=== PATIENT | male | born 1950 | race African-American/Black ===

== ENCOUNTER 2016-09-12 10:16 | Inpatient (IN) | payer OTHER, BC ==
[2016-09-12] MEDS ORDERED: SODIUM CHLORIDE 1,000 ML IV ONE (10:32)
--- NOTE | 2016-09-12 10:35 | PDOC ---
History of Present Illness - General Stated Complaint: UNCONSCIOUS Time Seen by Provider: 09/12/16 10:26 History Source: Patient Exam Limitations: No Limitations - History of Present Illness Initial Comments: The patient is a 66 year old male with a significant past medical history of EtOH abuse, alcohol withdrawal, PE, left DVT, HTN, subdural hematoma who is arrived to the Emergency Department via EMS for alcohol intoxication. Pt was seen on 08/31 for alcohol intoxication, got discharged on 09/04. As per EMS, the patient was found to be unresponsive and tachycardic at home with BGM in [id number] . Pt states that his last alcoholic drink was on Friday. History is limited from the patient, but pt able to nod/shake his head appropriately to questions. He denies fever, chills, abdominal pain, nausea, vomiting, chest pain, SOB, headache, dizziness, LOC. PSH:right hip replacement SH:EtOH abuse Past History - Past Medical History Allergies/Adverse Reactions: Allergies Allergy/AdvReac Type Severity Reaction Status Date / Time No Known Allergies Allergy Verified 09/12/16 11:13 Home Medications: Ambulatory Orders Folic Acid - 1 mg PO DAILY #30 tablet 09/04/16 Thiamine HCl [Vitamin B1 -] 100 mg PO DAILY #30 tablet 09/04/16 Walker [Ultra-Light Rollator] 1 each MC ONCE #1 each 09/04/16 HTN: Yes Suicide Attempt (Hx): No - Surgical History Orthopedic Surgery: Yes (Total R. Hip replacement) - Immunization History Immunization Up to Date: Yes - Psycho/Social/Smoking Cessation Hx Anxiety: No Suicidal Ideation: No Smoking Status: No Smoking History: Never smoked Have you smoked in the past 12 months: No Number of Cigarettes Smoked Daily: 0 Hx Alcohol Use: Yes (1 pint a day) Drug/Substance Use Hx: No Substance Use Type: None Hx Substance Use Treatment: No Review of Systems - Review of Systems Comments:: limited due to cilincial condition *Physical Exam - Physical Exam Comments: 09/12/16 20:57 GENERAL: +tremulous, generally weak, opens eyes to verbal stimulus, nods to basic questions HEAD: Normocephalic, atraumatic. EYES: extraocular movements intact, sclera anicteric, conjunctiva clear, pupils 2mm and reactive to light ENT: Normal voice, dry mucous membranes. NECK: Normal range of motion, supple LUNGS: Breath sounds equal, clear to auscultation bilaterally. No wheezes, no rhonchi, no rales. HEART: tachycardic ABDOMEN: Soft, nontender, normoactive bowel sounds. No guarding, no rebound.No CVA tenderness EXTREMITIES:+Contusion right superior buttock no erythema or fluxious. BACK: No focal bony tenderness in cervical/thoracic/lumbar region, no ecchymosis or stepoffs. NEUROLOGICAL: No facial assymetry, Normal speech, moving all 4 extremities to verbal stimulus SKIN: Warm, Dry, normal turgor, Heart Score/ECG Review - ECG Impressions Comment:: 09/12/16 11:18 Twelve-lead EKG was performed and reviewed by me. There is normal sinus rhythm with a heart rate of 117 Q waves in inferior leads ED Treatment Course - LABORATORY CBC & Chemistry Diagram: 09/13/16 05:35 09/13/16 05:35 - RADIOLOGY Radiology Studies Ordered: Category Date Time Status HEAD CT WITHOUT CONTRAST [CT] Stat CT Scan 09/12/16 10:27 Ordered CHEST X-RAY PORTABLE* [RAD] Stat Radiology 09/12/16 10:28 Ordered Medical Decision Making - Medical Decision Making 09/12/16 10:39 66y M hx of etoh abuse with history of etoh withdrawal, EtOH abuse, PE, subdural hematoma, left DVT, and a total right hip presents with AMS, was found down in the pts home by EMS _ FS was 130s, slightly tachy, bp slightly hypertensive, pupils were approximately 2mm. on arrival the pt is somnolent but arounsabl eot verbal stimulus, answers basic questions, denies any pain, states that last drink was 2 days ago - pt has dry mm, contusion on his buttock, otherwise nonfocal exam. suspect possible dehydration/withdrawal will obtain CT head to r/o intracranial process will give pt dose diazepam as pt hyperdynamic will r/o sepsis will give fluids/bananabag will obtain ekg 09/12/16 12:17 Laboratory Tests 09/12/16 09/12/16 09/12/16 10:30 10:30 10:30 WBC 12.3 H D Hct 50.0 H D Plt Count 164 Neutrophils % 85.6 H Lymphocytes % 5.6 L D VBG pH POC VBG pCO2 POC VBG pO2 Sodium 151 H Potassium 4.5 Chloride 118 H D Carbon Dioxide 19 L D Anion Gap 14 BUN 36 H D Creatinine 1.6 H D Creat Clearance w eGFR 43.46 Random Glucose 124 H D Lactic Acid 2.122 H* Calcium 10.0 Magnesium 2.4 Total Bilirubin 1.2 H D AST 172 H D Creatine Kinase 4625 H D Troponin I < 0.02 Total Protein 8.4 H Albumin 4.1 Urine Protein Urine Ketones Urine Blood Benzodiazepines Screen 09/12/16 09/12/16 09/12/16 10:43 11:00 11:00 WBC Hct Plt Count Neutrophils % Lymphocytes % VBG pH 7.23 L* POC VBG pCO2 46.7 POC VBG pO2 41.9 H Sodium Potassium Chloride Carbon Dioxide Anion Gap BUN Creatinine Creat Clearance w eGFR Random Glucose Lactic Acid Calcium Magnesium Total Bilirubin AST Creatine Kinase Troponin I Total Protein Albumin Urine Protein 2+ H Urine Ketones 1+ H Urine Blood 3+ H Benzodiazepines Screen Positive 09/12/16 12:22 labs reviewed slight leukocyotisis - nonspecific - no signs of infection cr/bun elevated , ck elevated to 4000s --> suspect rhabdomyolysis, will alkalinize urine with d5w bicarb gtt at 100ml/hr Na at 151, suspect secondary to dehydration ct head shows no acute process lactic acid slightly elevated at 2.1 benzos + on UA (this was obtained prior to us giving her diazepam for supsected withdrawal) suspect the benzos on board may be the ause of his somnolence Pts HR trending lower, currently 102-105 bp at 146 sbp case d/w dr. Logan agreed with admission for further management Case discussed in detail with admitting physician including history, physical exam and ancillary studies. Admitting physician has assumed care for the patient, will follow all pending diagnostics and will complete the evaluation and treatment. CRITICAL CARE DOCUMENTATION: I spent ~35 minutes of Critical Care time, excluding separately billable procedures, involving high complexity decision making to assess, manipulate and support vital system function(s) to treat single or multiple vital organ system failure and/or to prevent further life threatening deterioration of the patient' s condition. *DC/Admit/Observation/Transfer Diagnosis at time of Disposition: Alcohol withdrawal Qualifiers: Complication of substance-induced condition: uncomplicated Qualified Code(s): F10.230 - Alcohol dependence with withdrawal, uncomplicated Altered mental status Qualifiers: Altered mental status type: unspecified Qualified Code(s): R41.82 - Altered mental status, unspecified Rhabdomyolysis Qualifiers: Rhabdomyolysis type: traumatic Encounter type: initial encounter Qualified Code (s): T79.6XXA - Traumatic ischemia of muscle, initial encounter Acute renal failure Qualifiers: Acute renal failure type: unspecified Qualified Code(s): N17.9 - Acute kidney failure, unspecified - Discharge Dispostion Admit: Yes
[2016-09-12] MEDS ORDERED: diazePAM CARPU-JECT 10 MG/2 ML DISP.SYRIN IVPUSH ONE (10:38)
[2016-09-12] MEDS ORDERED: diazePAM CARPU-JECT 10 MG/2 ML DISP.SYRIN ONE (10:40)
[2016-09-12 10:50] LABS: BASOPHIL 0.4 % (0-2.0); EOSINOPHIL 0.1 % (0-4.5); MCH 29.3 pg (25.7-33.7); MCHC 31.5 g/dl (32.0-35.9); MEAN CELL VOLUME 93.2 fl (80-96); MEAN PLT VOLUME 9.1 fl (7.5-11.1); NEUTROPHILS 85.6 % (42.8-82.8); PLATELET COUNT 164 K/MM3 (134-434); RDW 20.2 % (11.9-15.9); WHITE BLOOD COUNT 12.3 K/mm3 (4.0-10.0)
[2016-09-12 10:52] LABS: VENOUS BLOOD GAS HCO3 18.7 meq/L (22-29)
[2016-09-12 10:56] LABS: VENOUS PH 7.23 (7.31-7.41)
[2016-09-12 11:16] LABS: ALBUMIN 4.1 g/dl (3.4-5.0); ANION GAP 14 (8-16); BILIRUBIN,TOTAL 1.2 mg/dL (0.2-1.0); CO2 19 mmol/L (21-32); CREATININE 1.6 mg/dL (0.7-1.3); GLUCOSE,RANDOM 124 mg/dL (74-106); MAGNESIUM 2.4 mg/dL (1.8-2.4); SGOT/AST 172 U/L (15-37); SGPT/ALT 76 U/L (12-78); TOT PROT 8.4 g/dl (6.4-8.2)
[2016-09-12 11:23] VITALS: BMI 22.5
[2016-09-12 11:25] LABS: INR 1.03 (0.82-1.09); PROTHROMBIN TIME (PATIENT) 11.3 SEC (9.98-11.88)
[2016-09-12 11:28] LABS: ALK PHOS 64 U/L (45-117); TROPONIN I < 0.02 ng/ml (0.00-0.05)
[2016-09-12 11:29] LABS: URINE APPEARANCE SLCLOUDY; URINE COLOR AMBER; URINE GLUCOSE (UA) NEGATIVE (NEGATIVE); URINE KETONE 1+ (NEGATIVE); URINE LEUK ESTERASE NEGATIVE (NEGATIVE); URINE NITRITE NEGATIVE (NEGATIVE); URINE UROBILINOGEN 2.0 E.U/dl E.U./dl (0.2-1.0)
[2016-09-12 11:35] LABS: URINE BLOOD 3+ (NEGATIVE); URINE PROTEIN 2+ (NEGATIVE)
[2016-09-12 11:37] LABS: URINE MARIJUANA THC NEGATIVE ng/ml (CUTOFF=50)
[2016-09-12] MEDS ORDERED: SODIUM BICARBONATE IV ONE (11:51)
[2016-09-12] MEDS ORDERED: SODIUM CHLORIDE IV ONE (11:51)
[2016-09-12 11:56] LABS: GRANULAR CASTS 34 /lpf; URINE HYALINE CAST 20 /lpf; URINE MUCUS MANY; URINE RBC 1 /hpf (0-3); URINE WBC 3 /hpf (3-5)
[2016-09-12] MEDS ORDERED: SODIUM BICARBONATE IV SCH (12:00)
[2016-09-12] MEDS ORDERED: DEXTROSE IV SCH (12:00)
[2016-09-12] MEDS ORDERED: WATER IV SCH (12:00)
[2016-09-12] MEDS ORDERED: DEXTROSE 5%-WATER - 1,000 ML with SODIUM BICARBONATE 8.4% - 150 MEQ IV SCH (12:14)
--- NOTE | 2016-09-12 17:16 | EKG ---
Test Reason : Blood Pressure : / mmHG Vent. Rate : 117 BPM Atrial Rate : 117 BPM P-R Int : 152 ms QRS Dur : 068 ms QT Int : 332 ms P-R-T Axes : 074 000 039 degrees QTc Int : 463 ms SINUS TACHYCARDIA INFERIOR INFARCT , AGE UNDETERMINED CANNOT RULE OUT ANTERIOR INFARCT (CITED ON OR BEFORE 14-AUG-2015) WHEN COMPARED WITH ECG OF 31-AUG-2016 17:11, INFERIOR INFARCT IS NOW PRESENT QUESTIONABLE CHANGE IN INITIAL FORCES OF ANTERIOR LEADS NONSPECIFIC T WAVE ABNORMALITY NOW EVIDENT IN LATERAL LEADS Confirmed by BRITNI MORALES MD ([id number]) on 09/12/2016 5:16:32 PM Referred By: Overread By: BRITNI MORLAES MD
--- NOTE | 2016-09-12 17:21 | HP ---
CHIEF COMPLAINT: PCP: HISTORY OF PRESENT ILLNESS: 66yo M with a PMHx of abuse alcohol abuse (46 years), alcohol withdrawal ( several episodes), PE, subdural hematoma, L DVT, Total R hip, presents to ED after being found unconscious at home by EMS; per ED note, pt's last drink was 2 days ago. Pt was d/c from [facility] a week ago following an episode of alcohol withdrawal. At the time, Librium was given and tapered appropriately; he was given thiamine, folic acid upon discharge. Pt refused rehab and detox. Per medical record pt uses a walker. ER course was notable for: (1) CBC, CMP, Lactic acid elevation, metabolic acidosis with pH of 7.23 (2) Blood cx, urine cx, (3) CT Head, CXR (4) Sodium bicarb, NS, Diazepam 10mg IVpush Recent Travel: PAST MEDICAL HISTORY: PAST SURGICAL HISTORY: Social History: Per Medical Chart Smoking:Denies Alcohol:few pints of vodka every night, would sometimes stop for a while, then binge drink again; 46 yrs of alcohol use Drugs:Denies Family History: Non-contributory Allergies No Known Allergies Allergy (Verified 09/12/16 11:13) HOME MEDICATIONS: Medication Instructions Recorded Folic Acid - 1 mg PO DAILY #30 tablet 09/04/16 Thiamine HCl [Vitamin B1 -] 100 mg PO DAILY #30 tablet 09/04/16 Walker [Ultra-Light Rollator] 1 each MC ONCE #1 each 09/04/16 REVIEW OF SYSTEMS Unable to obtain CONSTITUTIONAL: Absent: fever, chills, diaphoresis, generalized weakness, malaise, loss of appetite, weight change HEENT: Absent: rhinorrhea, nasal congestion, throat pain, throat swelling, difficulty swallowing, mouth swelling, ear pain, eye pain, visual changes CARDIOVASCULAR: Absent: chest pain, syncope, palpitations, irregular heart rate, lightheadedness , peripheral edema RESPIRATORY: Absent: cough, shortness of breath, dyspnea with exertion, orthopnea, wheezing, stridor, hemoptysis GASTROINTESTINAL: Absent: abdominal pain, abdominal distension, nausea, vomiting, diarrhea, constipation, melena, hematochezia GENITOURINARY: Absent: dysuria, frequency, urgency, hesitancy, hematuria, flank pain, genital pain MUSCULOSKELETAL: Absent: myalgia, arthralgia, joint swelling, back pain, neck pain SKIN: Absent: rash, itching, pallor HEMATOLOGIC/IMMUNOLOGIC: Absent: easy bleeding, easy bruising, lymphadenopathy, frequent infections ENDOCRINE: Absent: unexplained weight gain, unexplained weight loss, heat intolerance, cold intolerance NEUROLOGIC: Absent: headache, focal weakness or paresthesias, dizziness, unsteady gait, seizure, mental status changes, bladder or bowel incontinence PSYCHIATRIC: Absent: anxiety, depression, suicidal or homicidal ideation, hallucinations. PHYSICAL EXAMINATION Vital Signs - 24 hr 09/12/16 15:32 Temperature 98.9 F Pulse Rate 105 H Respiratory 18 Rate Blood Pressure 142/90 O2 Sat by Pulse 99 Oximetry (%) GENERAL: Somnolent, minimally arousable with sternal rub. Dry vomit on face HEAD: Normal with no signs of trauma. EYES: 2mm pinpoint pupils. EARS, NOSE, THROAT: Ears normal, nares patent, oropharynx clear without exudates. Moist mucous membranes. NECK: Normal range of motion, supple without lymphadenopathy, JVD, or masses. LUNGS: Breath sounds equal, clear to auscultation bilaterally. No wheezes, and no crackles. No accessory muscle use. Snoring with occasional pauses. HEART: Tachycardic, Regular rhythm, normal S1 and S2 without murmur, rub or gallop. ABDOMEN: Soft, nontender, not distended, normoactive bowel sounds, no guarding, no rebound, no masses. No hepatomegaly or splenomegaly. MUSCULOSKELETAL: Normal range of motion at all joints. No bony deformities or tenderness. No CVA tenderness. LOWER EXTREMITIES: 2+ pulses, warm, well-perfused. No calf tenderness. No peripheral edema. NEUROLOGICAL: Gait not assessed. SKIN: Warm, dry, normal turgor, no rashes or lesions noted. ASSESSMENT/PLAN: 66 yo M admitted to telemetry for alcohol withdrawal and possible benzo overdose. Found to have elevated lactic acid pH of 7.23, trending up lactic acid , BUN/Cr 36/1.6, Sodium 151, negative troponins, CXR negative for pulmonary dz, Ct showed moderate atrophy and ventricular dilation (consistent with prior CT on 01/17/15) without interval change or acute intracranial pathology. Urine tox positive for alcohol and benzos. Alcohol withdrawal - banana bag x 1 - PO thiamine and folic acid - Neuro check q1hr Benzo overdose - Monitor vitals - f/u ABG and lactic acid Metabolic lactic acidosis, most likely secondary to ARF h/o PE and DVT - not on anticoagulation FEN - elevated bili, AST, ALT, will monitor - NPO - NS, bicarb Prophylaxis - GI: not indicated - deconditioning: fall precaution Dispo: d/c once sx subsided Visit type - Emergency Visit Emergency Visit: Yes ED Registration Date: 09/12/16 Care time: The patient presented to the Emergency Department on the above date and was hospitalized for further evaluation of their emergent condition. - New Patient This patient is new to me today: Yes Date on this admission: 09/12/16 - Critical Care Critical Care patient: No
--- NOTE | 2016-09-12 17:39 | PN ---
Teaching Attending Note Name of Resident: Cheryl Sosa ATTENDING PHYSICIAN STATEMENT I saw and evaluated the patient. I reviewed the resident's note and discussed the case with the resident. I agree with the resident's findings and plan as documented. SUBJECTIVE: This is a 66-year-old man with a history of alcohol abuse, PE, subdural hematoma, DVT, and right total hip replacement who was brought in to the ER by EMS for altered mental status. As per EMS, he was found on the floor. Fingerstick was 130s. He was tachycardic, hypertensive, and his pupils were 2mm. When he arrived in the ER, he was somnolent but arousable. He has been given Valium 10 mg IV for alcohol withdrawal. He is now minimally responsive to pain. He had been admitted 08/31 - 09/04 with alcohol withdrawal. He refused alcohol rehab. OBJECTIVE: Vital Signs Period Temp Pulse Resp BP Sys/Guan Pulse Ox Last 24 Hr 98.2 F-98.9 F 103-114 16-18 124-155/90-106 97-100 HEART: S1 S2, tachycardic LUNGS: Clear ABDOMEN: Soft, non-distended, normal BS EXTREMITIES: No edema NEUROLOGICAL: Pupils small and reactive. Moves head and grimaces in response to pain. ASSESSMENT AND PLAN: This is a 66-year-old man with a history of alcohol abuse, PE, subdural hematoma , DVT, and right total hip replacement who presented to the ER with altered mental status. 1. Alcohol withdrawal - Start Librium detox 2. Hypernatremia secondary to dehydration - IV fluid - Monitor electrolytes 3. Acute kidney injury secondary to dehydration, rhabdomyolysis - IV fluid - Monitor BUN, creatinine 4. Lactic acidosis secondary to dehydration, BEVERLEY - IV fluid - Monitor lactic acid 5. Metabolic acidosis secondary to lactic acidosis, BEVERLEY - Started on IV fluid with sodium bicarb 6. Rhabdomyolysis - IV fluid - Monitor creatine kinase 7. Continuous alcohol abuse with alcoholic liver disease - Start multivitamin, thiamine, folic acid 8. History of DVT/PE - Not on anticoagulation secondary to fall risk with history of SDH
[2016-09-12] MEDS ORDERED: LORAZEPAM CARPU-JECT 2 MG/ML DISP.SYRIN IVPUSH PRN (18:06)
[2016-09-12 18:09] LABS: ARTERIAL BLOOD GAS BASE EXCESS -2.1 meq/l (-2-2); ARTERIAL BLOOD GAS HCO3 22.1 meq/L (22-26); ARTERIAL BLOOD GAS PO2 86.1 mmHg (80-100); ARTERIAL BLOOD GAS pH 7.38 (7.35-7.45)
[2016-09-12 18:11] LABS: ALLENS TEST POSITIVE
[2016-09-12 18:12] LABS: ART PUNCT SITE RIGHT RADIAL; LPM/O2% 21%; PT. ON O2? NO; TYPE OF O2 R/A
[2016-09-12 18:28] LABS: CALCIUM 9.5 mg/dL (8.5-10.1); CREATININE 1.4 mg/dL (0.7-1.3)
[2016-09-12] MEDS ORDERED: DEXTROSE 5%-WATER - 1,000 ML IV SCH ×2 (19:30)
[2016-09-13 03:03] LABS: CALCIUM 8.8 mg/dL (8.5-10.1); CREATININE 1.3 mg/dL (0.7-1.3)
[2016-09-13] MEDS ORDERED: DEXTROSE 5%-WATER - 1,000 ML IV SCH ×2 (04:20→18:46)
[2016-09-13] MEDS: KCL 10 MEQ IVPB 100 ML IVPB SCH ×3 (05:22→08:27)
[2016-09-13] MEDS: DEXTROSE 5%-WATER - 1,000 ML IV SCH ×4 (05:33→21:30)
[2016-09-13 07:33] LABS: ARTERIAL BLD GAS O2 SATURATION 90.4 % (90-98.9); ARTERIAL BLOOD GAS HCO3 24.9 meq/L (22-26); ARTERIAL BLOOD GAS pH 7.42 (7.35-7.45)
[2016-09-13 07:38] LABS: ALLENS TEST POSITIVE; ART PUNCT SITE RIGHT RADIAL; LPM/O2% ROOM AIR; PT. ON O2? NO
[2016-09-13 07:57] LABS: MCH 29.6 pg (25.7-33.7); MCHC 32.1 g/dl (32.0-35.9); MEAN CELL VOLUME 92.4 fl (80-96); MEAN PLT VOLUME 9.9 fl (7.5-11.1); RDW 20.1 % (11.9-15.9); WHITE BLOOD COUNT 8.9 K/mm3 (4.0-10.0)
[2016-09-13 08:13] LABS: ALBUMIN 3.3 g/dl (3.4-5.0); BILIRUBIN,TOTAL 1.3 mg/dL (0.2-1.0); CALCIUM 9.1 mg/dL (8.5-10.1); CREATININE 1.3 mg/dL (0.7-1.3); MAGNESIUM 1.9 mg/dL (1.8-2.4); PHOSPHOROUS 2.1 mg/dL (2.5-4.9); TOT PROT 7.1 g/dl (6.4-8.2)
[2016-09-13] MEDS ORDERED: KETOROLAC TROMETHAMINE 15 MG/ML VIAL IVPUSH ONE (10:45)
[2016-09-13] MEDS: CLINDAMYCIN 600MG PREMIX IVPB 50 ML IVPB SCH ×2 (10:55→14:16)
[2016-09-13] MEDS ORDERED: CEFTRIAXONE 2 GM/100 ML BAG IVPB SCH (11:30)
[2016-09-13 11:45] LABS: PLATELET COMMENT2 FEW LARGE PLTS; PLATELET COUNT 146 K/MM3 (134-434)
--- NOTE | 2016-09-13 13:32 | PN ---
Teaching Attending Note Name of Resident: Cheryl Sosa ATTENDING PHYSICIAN STATEMENT I saw and evaluated the patient. I reviewed the resident's note and discussed the case with the resident. I agree with the resident's findings and plan as documented. SUBJECTIVE: seen and evaluated at the bedside OBJECTIVE: resting comfortably, n hand tremors ASSESSMENT AND PLAN: 66 yo M with h/o EtOH abuse, PE, subdural hematoma, and DVT admitted for altered mental status due to sepsis due to aspiration pneumonia Pneumonia -pt was found unconscious on floor with vomit -is now febrile with retro-cardiac consolidation on CXR -more alert but still very lethargic -started clindamycin and ceftriaxone to cover gram positives/gram negative/ anerobes -follow up blood cultures Etoh -prn ativan for agitation
--- NOTE | 2016-09-13 14:35 | MSN ---
Progress Note (SOAP) - Subjective History of Present Illness: Pt is a 66yoM with a PHx of alcohol abuse (46 years), multiple hospitalizations for alcohol withdrawal, PE, and subdural hematoma who presents to ED for AMS found at home on the floor unconscious covered in vomit and BIB EMS. Per ED note , pt's last drink was 2 days prior to admission. ED course was notable for: Sodium bicarb, NS, diazepam 10mg IV push, urine was positive for alcohol and benzos. Pt was d/c'd from [facility] a week ago for alcohol withdrawal. At that time, Librium was given and tapered appropriately. Pt was given thiamine and folic acid upon discharge; pt refused rehab and detox at that time. Pt was seen and examined bedside in room after admission. Pt was arousable but somnolent and unable to answer questions due to his current mental status. Pt's face and nostrils were covered with pieces of dried vomit. Pt was sweating profusely, febrile at 103F, tachycardic (138), tachypnic (28), and saturating at 95% on nasal canula 2lpm. CXR this morning shows possible early retrocardia infiltrates. - Current Medications Current Medications: Active Medications Dextrose (D5w -) 1,000 mls @ 125 mls/hr IV ASDIR MIS Last Admin: 09/13/16 14:17 Dose: 125 mls/hr Ceftriaxone Sodium (Rocephin 2gm Ivpb (Pre-Docked)) 100 mls @ 200 mls/hr IVPB DAILY MIS Last Admin: 09/13/16 10:55 Dose: 200 mls/hr Clindamycin Phosphate (Cleocin 600 Mg Premix Ivpb -) 50 mls @ 100 mls/hr IVPB Q6H-IV MIS Last Admin: 09/13/16 14:16 Dose: 100 mls/hr Lorazepam (Ativan Injection -) 1 mg IVPUSH Q4H PRN PRN Reason: AGITATION Last Admin: 09/13/16 00:53 Dose: 1 mg - Objective Vital Signs: Vital Signs Temperature 103.3 F H 09/13/16 11:33 Pulse Rate 138 H 09/13/16 11:33 Respiratory Rate 28 H 09/13/16 11:33 Blood Pressure 135/94 09/13/16 08:35 O2 Sat by Pulse Oximetry (%) 91 L 09/13/16 09:00 Constitutional: Yes: Poor Hygeine, Thin HENT: Yes: Nasal Congestion Neck: Yes: Supple, Trachea Midline Cardiovascular: Yes: Tachycardia, S1, S2 Respiratory: Yes: Accessory Muscle Use, Cough, On Nasal O2 Peripheral Pulses: Left Radial: 2+, Right Radial: 2+, Left Doralis Pedis: 2+, Right Dorsalis Pedis: 2+ Neurological: Yes: Other (See HPI) Labs Lab Results: CBC, BMP 09/13/16 05:35 09/13/16 12:48 Imaging - Results Chest X-ray: Report Reviewed (Possible early retrocardia infiltrate), Image Reviewed Assessment/Plan 66yo M was PHx of alcohol abuse, alcohol withdrawl, PE, subdural hematoma admitted for AMS due to sepsis likely secondary to aspiration pneumonia from alcohol intoxication. Metabolic, lactic acidosis has resolved with lactic acid at 1.530 and pH at 7.43. Cr has returned to baseline, BUN is trending down. Pt remains hypernatremic at Na 151, but appears to be trending down and responding to fluids. 1. Pneumonia - IV Ceftriaxone and Clindamycin - Blood Cx pending 2. Alcohol withdrawal - Continue benzos - IVF, D5W 3. Hypernatremia secondary to dehydration - IVF, carefully given and monitored to prevent cerebral edema. 4. BEVERLEY secondary to dehydration - IVF, D5W - Continue to monitor BUN/Cr. Cr has returned to normal at 1.3. BUN is trending down.
[2016-09-13 14:49] LABS: ARTERIAL BLD GAS O2 SATURATION 95.3 % (90-98.9); ARTERIAL BLOOD GAS BASE EXCESS -0.5 meq/l (-2-2); ARTERIAL BLOOD GAS HCO3 23.9 meq/L (22-26); ARTERIAL BLOOD GAS PO2 74.2 mmHg (80-100); ARTERIAL BLOOD GAS pH 7.39 (7.35-7.45)
[2016-09-13 14:50] LABS: ALLENS TEST POSITIVE; ART PUNCT SITE RIGHT RADIAL; LPM/O2% 2L; PT. ON O2? YES; TYPE OF O2 NASAL CANNULA
[2016-09-13 15:44] LABS: BASOPHIL 0.2 % (0-2.0); EOSINOPHIL 0.1 % (0-4.5); MCH 28.3 pg (25.7-33.7); MCHC 31.2 g/dl (32.0-35.9); MEAN CELL VOLUME 90.8 fl (80-96); MEAN PLT VOLUME 9.8 fl (7.5-11.1); NEUTROPHILS 85.8 % (42.8-82.8); PLATELET COUNT 125 K/MM3 (134-434); RDW 19.4 % (11.9-15.9); WHITE BLOOD COUNT 11.8 K/mm3 (4.0-10.0)
[2016-09-13 16:14] LABS: ALBUMIN 3.2 g/dl (3.4-5.0); CALCIUM 8.9 mg/dL (8.5-10.1); CREATININE 1.6 mg/dL (0.7-1.3); TOT PROT 7.1 g/dl (6.4-8.2)
[2016-09-13 16:17] LABS: BILIRUBIN,TOTAL 1.1 mg/dL (0.2-1.0)
--- NOTE | 2016-09-13 16:21 | PN ---
Progress Note, Physician Chief Complaint: ID Unresponsive since admission apparently Febrile tachypnea - Current Medication List Current Medications: Active Medications Dextrose (D5w -) 1,000 mls @ 125 mls/hr IV ASDIR MIS Last Admin: 09/13/16 14:17 Dose: 125 mls/hr Ceftriaxone Sodium (Rocephin 2gm Ivpb (Pre-Docked)) 100 mls @ 200 mls/hr IVPB DAILY MIS Last Admin: 09/13/16 10:55 Dose: 200 mls/hr Clindamycin Phosphate (Cleocin 600 Mg Premix Ivpb -) 50 mls @ 100 mls/hr IVPB Q6H-IV MIS Last Admin: 09/13/16 14:16 Dose: 100 mls/hr Vancomycin HCl 1,250 mg/ (Dextrose) 250 mls @ 250 mls/2 hr IVPB ONCE ONE Stop: 09/13/16 18:29 Lorazepam (Ativan Injection -) 1 mg IVPUSH Q4H PRN PRN Reason: AGITATION Last Admin: 09/13/16 00:53 Dose: 1 mg Piperacillin Sod/Tazobactam Sod (Zosyn 3.375gm Ivpb (Pre-Docked)) 3.375 gm IVPB BID [facility] Stop: 09/14/16 21:59 - Objective Vital Signs: Vital Signs Temperature 101.9 F H 09/13/16 14:00 Pulse Rate 127 H 09/13/16 14:52 Respiratory Rate 25 H 09/13/16 14:00 Blood Pressure 108/73 09/13/16 14:00 O2 Sat by Pulse Oximetry (%) 95 09/13/16 14:52 Constitutional: Yes: Moderate Distress Neck: Yes: WNL, Supple Cardiovascular: Yes: Tachycardia, S1, S2. No: Murmur Respiratory: Yes: WNL, Regular, CTA Bilaterally Gastrointestinal: Yes: Soft. No: Tenderness Edema: No Labs: CBC, BMP 09/13/16 14:45 INR, PTT INR 1.03 (0.82-1.09) 09/12/16 10:30 Problem List - Problems (1) Altered mental status Code(s): R41.82 - ALTERED MENTAL STATUS, UNSPECIFIED Qualifiers: Altered mental status type: unspecified Qualified Code(s): R41.82 - Altered mental status, unspecified (2) Sepsis Code(s): A41.9 - SEPSIS, UNSPECIFIED ORGANISM Assessment/Plan Microbiology 09/12/16 11:00 Urine - Urine Clean Catch Urine Culture - Final NO GROWTH OBTAINED 09/12/16 11:24 Blood - Peripheral Venous Blood Culture - Preliminary NO GROWTH OBTAINED AFTER 24 HOURS, INCUBATION TO CONTINUE FOR 4 DAYS. 09/12/16 10:30 Blood - Peripheral Venous Blood Culture - Preliminary NO GROWTH OBTAINED AFTER 24 HOURS, INCUBATION TO CONTINUE FOR 4 DAYS. Laboratory Tests 04/02/13 09/12/16 09/12/16 06:00 10:26 10:30 WBC Hgb Hct Plt Count INR 1.03 ABG pH ABG pCO2 at Pt Temp ABG pO2 at Pt Temp ABG HCO3 BUN Creatinine Creat Clearance w eGFR Total Bilirubin AST Alkaline Phosphatase Total Protein Albumin Urine RBC Urine WBC Benzodiazepines Screen Alcohol, Quantitative < 5.0 HIV-1 Ab Rapid Screen Negative 09/12/16 09/12/16 09/12/16 11:00 11:00 18:08 WBC Hgb Hct Plt Count INR ABG pH 7.38 ABG pCO2 at Pt Temp 38.2 ABG pO2 at Pt Temp 86.1 D ABG HCO3 22.1 BUN Creatinine Creat Clearance w eGFR Total Bilirubin AST Alkaline Phosphatase Total Protein Albumin Urine RBC 1 Urine WBC 3 Benzodiazepines Screen Positive Alcohol, Quantitative HIV-1 Ab Rapid Screen 09/13/16 09/13/16 09/13/16 05:35 14:32 14:45 WBC 11.8 H D Hgb 14.1 Hct 45.0 Plt Count 125 L INR ABG pH 7.39 ABG pCO2 at Pt Temp 40.6 ABG pO2 at Pt Temp 74.2 L D ABG HCO3 BUN 29 H Creatinine 1.3 Creat Clearance w eGFR 55.23 Total Bilirubin 1.3 H AST 131 H D Alkaline Phosphatase 57 Total Protein 7.1 Albumin 3.3 L Urine RBC Urine WBC Benzodiazepines Screen Alcohol, Quantitative HIV-1 Ab Rapid Screen Assessment Sepsis syndrome source ? lung aspiration but must rule out [employer] infection Benzodiazepam overdose ? Metabolic encephalopathy Hypernatremic BEVERLEY Cultures Advise lumbar puncture ICU transfer Vancomycin Ceftriaxone HIV status ? Shaun MULLIGAN
[2016-09-13 16:29] LABS: TROPONIN I < 0.02 ng/ml (0.00-0.05)
[2016-09-13] MEDS ORDERED: VANCOMYCIN 1,250 MG in DEXTROSE 5%-WATER - 250 ML IVPB ONE (16:30)
[2016-09-13] MEDS ORDERED: CEFTRIAXONE 2 GM in DEXTROSE 5%-WATER - 100 ML IVPB SCH (16:30)
--- NOTE | 2016-09-13 16:33 | PN ---
[id number] LIKELY ASPIRATION ALTERED MENTAL STATUS,? ELEVATED AMMONIA LEVEL R/O DIAMOND SIZER AND GRADER INFECTION, H/O DVT H/O SUBDURAL HYPERNATREMIA H/O ETOH ABUSE PLAN [id number] O2 IVF CHECK LACTATE LEVEL CHECK AMMONIA LEVEL CONSIDER LUMBAR PUNCTURE F/U CHEST X-RAY TRANSFER TO ICU DR HUNTER Problem List - Problems (1) Altered mental status Code(s): R41.82 - ALTERED MENTAL STATUS, UNSPECIFIED Qualifiers: Altered mental status type: unspecified Qualified Code(s): R41.82 - Altered mental status, unspecified (2) Encephalopathy Code(s): G93.40 - ENCEPHALOPATHY, UNSPECIFIED (3) Sepsis Code(s): A41.9 - SEPSIS, UNSPECIFIED ORGANISM (4) Alcohol abuse Code(s): F10.10 - ALCOHOL ABUSE, UNCOMPLICATED (5) DVT (deep venous thrombosis) Code(s): I82.409 - ACUTE EMBOLISM AND THOMBOS UNSP DEEP VN UNSP LOWER EXTREMITY (6) Pneumonia Code(s): J18.9 - PNEUMONIA, UNSPECIFIED ORGANISM (7) Hypernatremia Code(s): E87.0 - HYPEROSMOLALITY AND HYPERNATREMIA
--- NOTE | 2016-09-13 16:50 | PN ---
Physical Exam: SUBJECTIVE: Patient seen and examined at bed side. patient is obtunded, barley arousable with strong tactile stimulant, more alert than yesterday. pupils more reactive to light. patient responds to simple questions with had and eye movement improved from yesterday. patient pupils more reactive to light , yesterday pinpoint non reactive. no tremors. ASSESSMENT AND PLAN: 66 yo M with h/o EtOH abuse, PE, subdural hematoma, and DVT admitted for altered mental status due to sepsis due to aspiration pneumonia OBJECTIVE: Vital Signs Period Temp Pulse Resp BP Sys/Guan Pulse Ox Last 24 Hr 100 F-103.3 F 113-138 20-28 108-135/72-94 91-95 GENERAL: Somnolent, minimally arousable with sternal rub. Dry vomit in nares, gremance with head movement, no neck stiffness. patient alert eyes open, resonds to voice and some questions with minimal eye and head movement. HEAD: Normal with no signs of trauma. EYES: 3.5 mm reactive to light EARS, NOSE, THROAT: Ears normal, nares patent, oropharynx clear without exudates. dry mucous membranes. NECK: Normal range of motion, supple without lymphadenopathy, JVD, or masses. LUNGS: Breath sounds equal, No wheezes, and no crackles. upper airway sounds, Right middle lobe crackels. HEART: Tachycardic, Regular rhythm, normal S1 and S2 without murmur, rub or gallop.shallow breathing Snoring with occasional pauses. ABDOMEN: Soft, nontender, not distended, normoactive bowel sounds, no guarding, no rebound, no masses. No hepatomegaly or splenomegaly. MUSCULOSKELETAL: Normal range of motion at all joints. No bony deformities or tenderness. No CVA tenderness. LOWER EXTREMITIES: 2+ pulses, warm, well-perfused. No calf tenderness. No peripheral edema. NEUROLOGICAL: Gait not assessed. difficult to arouse. Deep tendon reflex are hypo active.. no movement when bambiski performed. SKIN: Warm, dry, normal turgor, no rashes or lesions noted. Laboratory Results - last 24 hr 09/13/16 09/13/16 09/13/16 01:30 05:35 05:35 WBC 8.9 RBC 4.78 Hgb 14.2 Hct 44.2 MCV 92.4 MCHC 32.1 RDW 20.1 H Plt Count 146 MPV 9.9 Neutrophils % Lymphocytes % Monocytes % Eosinophils % Basophils % Platelet Comment Few large plts Puncture Site ABG pH ABG pCO2 at Pt Temp ABG pO2 at Pt Temp ABG HCO3 ABG O2 Sat (Measured) ABG O2 Content ABG Base Excess Mario Alberto Test O2 Delivery Device Oxygen Flow Rate PEEP Sodium 157 H 154 H Potassium 3.3 L 3.5 Chloride 117 H 117 H Carbon Dioxide 27 27 Anion Gap 13 10 BUN 28 H 29 H Creatinine 1.3 1.3 Creat Clearance w eGFR 55.23 Random Glucose 122 H 112 H Calcium 8.8 9.1 Phosphorus 2.1 L D Magnesium 1.9 D Total Bilirubin 1.3 H AST 131 H D ALT 62 Alkaline Phosphatase 57 Creatine Kinase Troponin I Total Protein 7.1 Albumin 3.3 L 09/13/16 09/13/16 09/13/16 07:24 12:48 14:32 WBC RBC Hgb Hct MCV MCHC RDW Plt Count MPV Neutrophils % Lymphocytes % Monocytes % Eosinophils % Basophils % Platelet Comment Puncture Site Right radial Right radial ABG pH 7.42 7.39 ABG pCO2 at Pt Temp 38.9 40.6 ABG pO2 at Pt Temp 56.0 L D 74.2 L D ABG HCO3 24.9 23.9 ABG O2 Sat (Measured) 90.4 95.3 ABG O2 Content 17.4 18.9 ABG Base Excess 1.0 -0.5 Mario Alberto Test Positive Positive O2 Delivery Device Nasal cannula Oxygen Flow Rate Room air 2l PEEP 0.0 0.0 Sodium 151 H Potassium Chloride Carbon Dioxide Anion Gap BUN Creatinine Creat Clearance w eGFR Random Glucose Calcium Phosphorus Magnesium Total Bilirubin AST ALT Alkaline Phosphatase Creatine Kinase Troponin I Total Protein Albumin 09/13/16 09/13/16 09/13/16 14:45 14:45 15:00 WBC 11.8 H D RBC 4.96 Hgb 14.1 Hct 45.0 MCV 90.8 MCHC 31.2 L RDW 19.4 H Plt Count 125 L MPV 9.8 Neutrophils % 85.8 H Lymphocytes % 7.1 L D Monocytes % 6.8 Eosinophils % 0.1 Basophils % 0.2 Platelet Comment Puncture Site ABG pH ABG pCO2 at Pt Temp ABG pO2 at Pt Temp ABG HCO3 ABG O2 Sat (Measured) ABG O2 Content ABG Base Excess Mario Alberto Test O2 Delivery Device Oxygen Flow Rate PEEP Sodium 152 H Potassium 3.7 Chloride 116 H Carbon Dioxide 26 Anion Gap 10 BUN 28 H Creatinine 1.6 H D Creat Clearance w eGFR 43.46 Random Glucose 177 H D Calcium 8.9 Phosphorus Magnesium Total Bilirubin 1.1 H AST 93 H D ALT 56 Alkaline Phosphatase 56 Creatine Kinase 2082 H D Troponin I < 0.02 Total Protein 7.1 Albumin 3.2 L Active Medications Generic Name Dose Route Start Last Admin Trade Name Freq PRN Reason Stop Dose Admin Dextrose 1,000 mls @ 125 mls/hr 09/13/16 04:46 09/13/16 14:17 D5w - IV 125 mls/hr ASDIR MIS Administration Vancomycin HCl 1,250 mg/ 250 mls @ 250 mls/2 hr 09/13/16 16:30 Dextrose IVPB 09/13/16 18:29 ONCE ONE Vancomycin HCl 1,250 mg/ 250 mls @ 250 mls/hr 09/14/16 10:00 Dextrose IVPB DAILY MIS Ceftriaxone Sodium 2 gm/ 100 mls @ 200 mls/hr 09/13/16 16:30 Dextrose IVPB Q12H MIS Clindamycin Phosphate 50 mls @ 100 mls/hr 09/13/16 18:00 Cleocin 600 Mg Premix Ivpb - IVPB Q8H-IV MIS Lorazepam 1 mg 09/12/16 18:06 09/13/16 00:53 Ativan Injection - IVPUSH 1 mg Q4H PRN Administration AGITATION ASSESSMENT/PLAN: 66 yo M admitted to telemetry for alcohol withdrawal and possible benzo overdose found on the floor of his appartment for undetermined length of time face and nostrals covered with dry vomitus, patient presented to ED obtunded. Found to have elevated lactic acid pH of 7.23, trending up lactic acid, BUN/Cr 36/1.6, Sodium 151, negative troponins, CXR negative for pulmonary dz, Ct showed moderate atrophy and ventricular dilation (consistent with prior CT on ) without interval change or acute intracranial pathology. Urine tox positive for alcohol and benzos. AMS possibly to Infection v encephalopathy v hypernatremia encephalopathy v hepatic encephalopathy v Alcohol withdrawal v Metabolic encephalopathy - banana bag x 1 - PO thiamine and folic acid - Neuro check q1hr -neurology consulted to r/o stroke v locked in syndrome v meningitis v seizure - will consider lumbar puncture - amonia level pening apparently the lab error. lab was contacted and are aware. -Will consider lactulose with caution in light of hypernatremia. 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 Visit type - Emergency Visit Emergency Visit: Yes ED Registration Date: 09/12/16 Care time: The patient presented to the Emergency Department on the above date and was hospitalized for further evaluation of their emergent condition. - New Patient This patient is new to me today: No - Critical Care Critical Care patient: Yes Total Critical Care Time (in minutes): 45 Critical Care Statement: The care of this patient involved high complexity decision making to prevent further life threatening deterioration of the patient 's condition and/or to evalute & treat vital organ system(s) failure or risk of failure. - Discharge Referral Referred to [facility] Med P.C.: No
--- NOTE | 2016-09-13 16:52 | HOSP ---
Physical Examination Vital Signs: Vital Signs Temperature 101.9 F H 09/13/16 14:00 Pulse Rate 127 H 09/13/16 14:52 Respiratory Rate 25 H 09/13/16 14:00 Blood Pressure 108/73 09/13/16 14:00 O2 Sat by Pulse Oximetry (%) 95 09/13/16 14:52 Labs: CBC, BMP 09/13/16 14:45 09/13/16 14:45 Hospitalist Encounter Assessment: Pt still extremely lethargic and only nodding his head "yes" when asked questions. Neck is supple, pt remains febrile and tachypnic. Extremities are completely flaccid, PERRL, babinski mute B/L. Will give dose of vancomycin and zosyn, and call ICU consult. At this time causes for metabolic encephalopathy are sepsis and concurrent stroke. Critical Care Total Critical Care Time (in minutes): 75 Critical Care Statement: The care of this patient involved high complexity decision making to prevent further life threatening deterioration of the patient 's condition and/or to evalute & treat vital organ system(s) failure or risk of failure.
[2016-09-13] MEDS ORDERED: ACETAMINOPHEN 1000 MG/100 ML VIAL (NON FORMULARY) IVPB ONE (17:17)
[2016-09-13] MEDS ORDERED: LACTULOSE 20 GM/30 ML UDC (FOR ORAL USE ONLY) PO PRN ×2 (17:19→18:41)
[2016-09-13] MEDS ORDERED: CLINDAMYCIN 600MG PREMIX IVPB 50 ML IVPB SCH (18:00)
[2016-09-13] MEDS ORDERED: RAPID SEQUENCE INTUBATION KIT NR ONE (18:15)
--- NOTE | 2016-09-13 18:42 | PROC ---
Intubation - Intubation Reason for Intubation: Respiratory Insufficiency, Airway Protection, Other ( Altered mental status) Time of Intubation: 18:25 Intubation Method: orotracheal Blade used: Mac (4 x 1 attempt) Tube Size (cm): 7.5 Tube position @ lip (cm): 23 Tube position confirmed by: Direct visualization, CO2 detector, Chest x-ray, Breath sounds Breath Sounds after Intubation: equal Post Intubation Xray: Yes (pending) Remarks: Easy bag mask ventilation prior to intubation (assisting patients' spontaneous breaths). Etomidate 14 mg IV and Succinylcholine 140 mg IV administered. CL grade 1 view on direct laryngoscopy. 7.5 ETT - evidence of prior trachesotomy as suggested by scar over trachea. ETT cuff inflated with 9 ml of air to minimal occlusive pressure.
[2016-09-13] MEDS ORDERED: LORAZEPAM CARPU-JECT 2 MG/ML DISP.SYRIN IVPUSH PRN (18:46)
[2016-09-13] MEDS ORDERED: SUCCINYLCHOLINE CHLORIDE 200 MG/10 ML VIAL IVPUSH ONE (20:00)
[2016-09-13] MEDS ORDERED: ETOMIDATE 20 MG/10 ML AMPUL IVPUSH ONE (20:00)
--- NOTE | 2016-09-13 20:15 | CONSULT ---
Consult Consult Specialty:: PULM / CRITICAL CARE MEDICINE Referred by:: Dr José Reason for Consultation:: altered mental status, sepsis - History of Present Illness Chief Complaint: unresponsive History of Present Illness: 66 y/o M long time EtOH user with complicated medical hx including admits for EtOH withdraw, PE, SDH and DVT. He was most recently admitted to [facility] a week ago for EtOH withdraw and treated with Librium. He presented to the ED via EMS today when he was found unresponsive at home. In the ED he was persistently febrile and altered. U-tox was positive for BDZ and EtOH, head CT was negative for an acute process, CXR showed no clear infiltrate. He was admitted to the floor and seen by Dr Dunn. He was cultured and Vanc/CTX was started for meningitis coverage. Later in the day he was found unresponsive and unable to protect his airway. He was intubated and transferred to the ICU. 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) Cardio/Vascular: Yes: Deep Vein Thrombosis, HTN Pulmonary: Yes: Pulmonary Embolus - Alcohol/Substance Use Hx Alcohol Use: Yes (1 pint a day) - Smoking History Smoking history: Never smoked Have you smoked in the past 12 months: No Aproximately how many cigarettes per day: 0 Home Medications - Allergies Allergies/Adverse Reactions: Allergies Allergy/AdvReac Type Severity Reaction Status Date / Time No Known Allergies Allergy Verified 09/12/16 11:13 - Home Medications Home Medications: Ambulatory Orders Folic Acid - 1 mg PO DAILY #30 tablet 09/04/16 Thiamine HCl [Vitamin B1 -] 100 mg PO DAILY #30 tablet 09/04/16 Walker [Ultra-Light Rollator] 1 each ONCE #1 each 09/04/16 Review of Systems Unable to obtain ROS, reason: unresponsive Physical Exam Vital Signs: Vital Signs Temperature 102.9 F H 09/13/16 18:00 Pulse Rate 102 H 09/13/16 19:00 Respiratory Rate 16 09/13/16 19:36 Blood Pressure 86/73 09/13/16 19:00 O2 Sat by Pulse Oximetry (%) 100 09/13/16 19:36 Eyes: Yes: Other (pinpoint b/l) HENT: Yes: Atraumatic, Normocephalic Neck: Yes: Trachea Midline. No: Lymphadenopathy Cardiovascular: Yes: Tachycardia, S1, S2 Respiratory: Yes: Intubated Gastrointestinal: Yes: Normal Bowel Sounds, Soft Extremities: Yes: WNL Edema: No Peripheral Pulses WNL: Yes Neurological: Yes: Other (responsive to deep painfull stimuli only) Labs: CBC, BMP 09/13/16 14:45 09/13/16 14:45 Imaging - Results Chest X-ray: Report Reviewed, Image Reviewed Cat Scan: Report Reviewed Problem List - Problems (1) Altered mental status Code(s): R41.82 - ALTERED MENTAL STATUS, UNSPECIFIED Qualifiers: Altered mental status type: unspecified Qualified Code(s): R41.82 - Altered mental status, unspecified (2) Elevated liver enzymes Code(s): R74.8 - ABNORMAL LEVELS OF OTHER SERUM ENZYMES (3) Encephalopathy Code(s): G93.40 - ENCEPHALOPATHY, UNSPECIFIED (4) Hypernatremia Code(s): E87.0 - HYPEROSMOLALITY AND HYPERNATREMIA (5) Rhabdomyolysis Code(s): M62.82 - RHABDOMYOLYSIS Qualifiers: Rhabdomyolysis type: traumatic Encounter type: initial encounter Qualified Code(s): T79.6XXA - Traumatic ischemia of muscle, initial encounter (6) Sepsis Code(s): A41.9 - SEPSIS, UNSPECIFIED ORGANISM (7) Alcohol abuse Code(s): F10.10 - ALCOHOL ABUSE, UNCOMPLICATED (8) Respiratory failure Code(s): J96.90 - RESPIRATORY FAILURE, UNSP, UNSP W HYPOXIA OR HYPERCAPNIA Assessment/Plan Altered mental status - ?meningitis, ?hepatic or toxic metabolic encephalopathy Sepsis - ?meningitis vs aspiration PNA Respiratory failure BEVERLEY HyperNa Rhabdo -Intubated for airway protection - currently unresponsive -Hold sedation to assess mental status -Will do LP if I can get in touch with his family -No ascites seen on my bedside u/s -Resp culture -ABX per ID - 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
[2016-09-13] MEDS ORDERED: LACTATED RINGERS SOLUTION 1,000 ML IV STA (20:39)
[2016-09-13 20:45] LABS: ARTERIAL BLD GAS O2 SATURATION 99.5 % (90-98.9); ARTERIAL BLOOD GAS BASE EXCESS -0.8 meq/l (-2-2); ARTERIAL BLOOD GAS HCO3 23.1 meq/L (22-26)
[2016-09-13 20:47] LABS: ALLENS TEST POSITIVE; ART PUNCT SITE RIGHT RADIAL; LPM/O2% 100; MECH. VENT. YES; PT. ON O2? YES
[2016-09-13 20:48] LABS: TYPE OF O2 MECH. VENT; VENT RATE 14; VT/PRESS 450
--- NOTE | 2016-09-13 20:55 | CONS ---
DATE OF CONSULTATION: 09/13/2016 REFERRING PHYSICIAN: Dr. José. HISTORY OF PRESENT ILLNESS: The history is obtained from the chart. The patient is poorly responsive. The patient is a 66-year-old black male with past medical history of ETOH abuse, alcohol withdrawal, pulmonary emboli, left DVT, hypertension, subdural hematoma, admitted to [facility] on September 12 secondary to alcohol intoxication. Apparently, the patient was seen on August 31 for alcohol intoxication and discharged on September 04. Apparently, according to the chart , the patient was found by EMS to be unresponsive and tachycardic at home with blood glucose in the 130s. Apparently, last alcoholic drink was on Friday prior to this admission. No further details available at this time. The hospitalization is significant that the patient has remained poorly responsive. He has also been febrile for which he was placed on antibiotics. It was felt that he had a possible aspiration pneumonia. He was also noted to be hypernatremic and was given IV fluids. No further history is available at this time. PAST MEDICAL HISTORY: Again, includes ETOH abuse, DVT, PE, hypertension, subdural hematoma. SOCIAL HISTORY: Unable to obtain. REVIEW OF SYSTEMS: Unable to obtain. The patient is poorly responsive. PHYSICAL EXAMINATION: General: The patient is a thin black male, poorly responsive and tachypneic. Vital Signs: T-max is 103.3, currently 101.9. Heart rate is 127. Respiratory rate is 25. O2 saturation is 95% on 2 L. HEENT: Normocephalic, atraumatic. Neck: Supple. Heart: Tachycardic. Normal S1, S2. Chest: Diminished breath sounds bilaterally. Abdomen: Soft, bowel sounds are positive. Extremities: No cyanosis or edema. LABORATORY DATA: Sodium 151, BUN 29, creatinine 1.3, bilirubin is 1.3, AST 131, ammonia level is pending. WBC is 11.8, hemoglobin 14.1, hematocrit 40.40 with a platelet count of 125,000. INR is 1.03. Blood gas: A pH of 7.39, pCO2 of 40, pO2 74, bicarbonate 23, saturation 95, on 2 L. Chest x-ray: Possible early retrocardiac infiltrate. IMPRESSION: Sepsis, possible aspiration pneumonia, possible gastrointestinal etiology; history of ethanol abuse; history of deep venous thrombosis; history of subdural hematoma. 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 Check lactate level. Obtain followup chest x-rays. Check ammonia level. FRANCHESCA HUNTER M.D. [id number] MTDD
--- NOTE | 2016-09-13 21:00 | CONS ---
DATE OF CONSULTATION: DATE OF DICTATION: 09/13/2016 HISTORY OF PRESENT ILLNESS: This is a 66-year-old male with a history of polysubstance abuse including benzodiazepines and alcohol that I am asked to see now for altered mental status with fever. He had a recent admission for alcohol abuse within the last 2 weeks. He comes now, having been found unresponsive. He has now been unresponsive apparently since admission yesterday and is noted to have high fever with tachypnea. I am asked to see him for further recommendations. PAST MEDICAL HISTORY: Includes pulmonary embolus, left DVT, hypertension, subdural hematoma, polysubstance abuse, hypertension, total right hip replacement, never smoked, admits to a pint of liquor per day, benzodiazepines in the toxicology. MEDICATIONS: Folic acid, thiamine. ALLERGIES: None known. SOCIAL HISTORY: No history of prior suicide attempt. FAMILY HISTORY: Unobtainable. REVIEW OF SYSTEMS: Respiratory: Tachypnea. Cardiac: No history of chest pain, palpitations, syncope. Gastrointestinal: No abdominal pain, blood per rectum, hematemesis. Genitourinary: Incontinent of urine. PHYSICAL EXAMINATION: General: Reveals an ill-appearing unresponsive male. Vital Signs: Temperature of 103.3, pulse 127, blood pressure 107/73, respirations 25, O2 oximetry 95% on nasal cannula. Neck: Supple without adenopathy. Lungs: Clear to percussion and auscultation. Heart: S1, S2, regular rhythm, tachycardic, no murmur. Abdomen: Soft, nontender without hepatosplenomegaly. Extremities: Without clubbing, cyanosis, or edema. LABORATORY DATA: The white count was 11.8, hemoglobin 14.1, platelets at 125, sodium 151, chloride 117, creatinine 1.3, lactic acid 1.5, bilirubin 1.3, AST 131, LDH 200. Chest x-ray reviewed, shows no evidence of acute infiltrate. ASSESSMENT: A 66-year-old male with history of polysubstance abuse, alcohol and benzodiazepines, previous history of subdural hematoma presents now with altered mental status and sepsis syndrome. Possibility of aspiration pneumonia, consideration as a cause of fever and sepsis. Additionally, the possibility of a central nervous system infection must be considered. Would empirically treat him with a combination of vancomycin and ceftriaxone. Obtain neurology consult. Would perform a lumbar puncture. ICU transfer. Determine HIV status. ELEZAAR SAENZ M.D. LINNETTE/[id number]
[2016-09-13 21:21] LABS: HIV 1 & 2 AB NEGATIVE; HIV 1 AGp24 NEGATIVE
--- NOTE | 2016-09-13 21:41 | PROC ---
Lumbar Puncture Indication: sepsis, fevers, AMS Risks and Benefits Explained: Yes Consent on Chart: Yes Sterile Technique: Yes Skin prep: Chlorhexidine Position: Right lateral decubitus Site: L3-L4 CSF Color, Appearance: Clear Sterile Dressing Applied: Yes Remarks: sterile prep, 1% lido, 1 attempt, 15ml of clear CSF was removed. pt tolerated the procedure well and there were no complications. CSF was sent for studies.
[2016-09-13] MEDS ORDERED: cefTRIAXone 2 GM/100 ML BAG (PRE-DOCKED) IVPB SCH (22:00)
[2016-09-13] MEDS ORDERED: PIPERACILLIN/TAZOB 3.375 GM/50 ML PRE-DOCKED IVPB SCH (22:00)
[2016-09-13] MEDS ORDERED: LACTULOSE 20 GM/30 ML UDC (FOR RECTAL USE ONLY) PR SCH (22:00)
[2016-09-13] MEDS: HEPARIN NA (PORCINE) 5,000 UNITS/ML 1ML VIAL SQ SCH (22:09)
[2016-09-13] MEDS: LACTULOSE 20 GM/30 ML UDC (FOR ORAL USE ONLY) NGT SCH (22:09)
[2016-09-13] MEDS: CHLORHEXIDINE GLUCONATE 4% CLEANSER FOR DECOLONIZATION TP SCH (22:09)
[2016-09-13 22:32] LABS: CSF APPEARANCE CLEAR
[2016-09-13 22:33] LABS: CSF APPEARANCE CLEAR; CSF COLOR COLORLESS; CSF RBC 1 /mm3; CSF RBC 21 /mm3
[2016-09-13] MEDS: MUPIROCIN 2% TOPICAL OINTMENT FOR DECOLONIZATION NS SCH (22:43)
[2016-09-14 01:39] LABS: GLUCOSE,CSF 127 mg/dL (50-80)
[2016-09-14] MEDS ORDERED: PROPOFOL 100 ML ONE (02:02)
[2016-09-14] MEDS: CLINDAMYCIN 600MG PREMIX IVPB 50 ML IVPB SCH ×3 (02:05→17:16)
[2016-09-14] MEDS: PROPOFOL 100 ML IVPUSH SCH ×2 (02:30→08:00)
[2016-09-14] MEDS: LACTULOSE 20 GM/30 ML UDC (FOR ORAL USE ONLY) NGT SCH ×3 (06:00→22:41)
[2016-09-14] MEDS: HEPARIN NA (PORCINE) 5,000 UNITS/ML 1ML VIAL SQ SCH ×3 (06:00→22:41)
[2016-09-14 06:13] LABS: BASOPHIL 0.5 % (0-2.0); EOSINOPHIL 0.6 % (0-4.5); MCH 28.7 pg (25.7-33.7); MCHC 31.5 g/dl (32.0-35.9); MEAN CELL VOLUME 91.1 fl (80-96); MEAN PLT VOLUME 10.5 fl (7.5-11.1); NEUTROPHILS 79.2 % (42.8-82.8); PLATELET COUNT 102 K/MM3 (134-434); RDW 19.2 % (11.9-15.9); WHITE BLOOD COUNT 9.6 K/mm3 (4.0-10.0)
[2016-09-14 06:28] LABS: ALBUMIN 2.6 g/dl (3.4-5.0); CALCIUM 8.3 mg/dL (8.5-10.1)
[2016-09-14 06:31] LABS: BILIRUBIN,TOTAL 0.9 mg/dL (0.2-1.0); CREATININE 1.5 mg/dL (0.7-1.3); TOT PROT 6.2 g/dl (6.4-8.2)
--- NOTE | 2016-09-14 07:13 | PN ---
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 aspiration or meningitis - Current Medication List Current Medications: Active Medications Ceftriaxone Sodium (Rocephin 2gm Ivpb (Pre-Docked)) 2 gm IVPB BID MIS Last Admin: 09/13/16 22:10 Dose: 2 gm Chlorhexidine Gluconate (Hibiclens For Decolonization -) 1 applic TP HS MIS Last Admin: 09/13/16 22:09 Dose: 1 applic Heparin Sodium (Porcine) (Heparin -) 5,000 unit SQ TID MIS Last Admin: 09/14/16 06:00 Dose: 5,000 unit Clindamycin Phosphate (Cleocin 600 Mg Premix Ivpb -) 50 mls @ 100 mls/hr IVPB Q8H-IV MIS Last Admin: 09/14/16 02:05 Dose: 100 mls/hr Vancomycin HCl 1,250 mg/ (Dextrose) 250 mls @ 250 mls/hr IVPB DAILY MIS Dextrose (D5w -) 1,000 mls @ 50 mls/hr IV ASDIR MIS Last Admin: 09/13/16 21:30 Dose: 50 mls/hr Propofol (Diprivan -) 100 mls @ 2.449 mls/hr IVPUSH TITR MIS; 5 MCG/KG/MIN PRN Reason: Protocol Last Admin: 09/14/16 02:30 Dose: 9.798 mls/hr Lactulose (Cephulac (Oral Use)) 20 gm NGT TID [facility] Last Admin: 09/14/16 06:00 Dose: 20 gm Mupirocin (Bactroban Ointment (For Decolonization) -) 1 applic NS BID MIS Stop: 09/18/16 21:59 Last Admin: 09/13/16 22:43 Dose: 1 applic Pantoprazole Sodium (Protonix 40mg Ivpb (Pre-Docked)) 40 mg IVPB DAILY [facility] - Objective Vital Signs: Vital Signs Temperature 99.7 F H 09/14/16 06:00 Pulse Rate 83 09/14/16 06:00 Respiratory Rate 14 09/14/16 06:30 Blood Pressure 86/66 09/14/16 06:00 O2 Sat by Pulse Oximetry (%) 100 09/13/16 21:45 Constitutional: Yes: Other (Sedated on the vent) Neck: Yes: WNL, Supple Cardiovascular: Yes: Regular Rate and Rhythm, S1, S2 Respiratory: Yes: WNL, Regular, CTA Bilaterally. No: Rales, Rhonchi Gastrointestinal: Yes: WNL, Normal Bowel Sounds, Soft. No: Tenderness, Tenderness, Rebound Extremities: No: Cold, Cool, Cyanosis Edema: No Labs: CBC, BMP 09/14/16 05:00 09/14/16 05:00 INR, PTT INR 1.03 (0.82-1.09) 09/12/16 10:30 Problem List - Problems (1) Altered mental status Code(s): R41.82 - ALTERED MENTAL STATUS, UNSPECIFIED Qualifiers: Altered mental status type: unspecified Qualified Code(s): R41.82 - Altered mental status, unspecified (2) Sepsis Code(s): A41.9 - SEPSIS, UNSPECIFIED ORGANISM Assessment/Plan Microbiology 09/12/16 11:00 Urine - Urine Clean Catch Urine Culture - Final NO GROWTH OBTAINED 09/12/16 11:24 Blood - Peripheral Venous Blood Culture - Preliminary NO GROWTH OBTAINED AFTER 24 HOURS, INCUBATION TO CONTINUE FOR 4 DAYS. 09/12/16 10:30 Blood - Peripheral Venous Blood Culture - Preliminary NO GROWTH OBTAINED AFTER 24 HOURS, INCUBATION TO CONTINUE FOR 4 DAYS. Laboratory Tests 09/12/16 09/12/16 09/13/16 10:30 11:00 08:47 WBC Hgb Plt Count INR 1.03 BUN Creatinine Creat Clearance w eGFR Ammonia 127.30 H CSF WBC CSF Glucose CSF Total Protein Benzodiazepines Screen Positive HIV 1&2 Antibody Screen HIV P24 Antigen 09/13/16 09/13/16 09/14/16 17:55 21:50 05:00 WBC 9.6 Hgb 12.6 D Plt Count 102 L INR BUN Creatinine Creat Clearance w eGFR Ammonia CSF WBC 1 CSF Glucose 127 H CSF Total Protein 37 Benzodiazepines Screen HIV 1&2 Antibody Screen Negative HIV P24 Antigen Negative 09/14/16 05:00 WBC Hgb Plt Count INR BUN 32 H Creatinine 1.5 H Creat Clearance w eGFR 46.82 Ammonia CSF WBC CSF Glucose CSF Total Protein Benzodiazepines Screen HIV 1&2 Antibody Screen HIV P24 Antigen Assessment Altered mental status ? all metabolic ammonia drugs alcohol infection High fevers possibly aspirated. No evidence for meningitis Polysubstance abuse History of subdural DVT PE HIV testing negative Plan Current antibiotics can be adjusted Sputum should be ordered Clinda 600mg q8H along Ceftriaxone 1 gr daily Vanco can be stopped if no MRSA found in cultures 38 minutes spent in ICU care today Shaun MULLIGAN
--- NOTE | 2016-09-14 08:30 | PN ---
Progress Note, Physician - Current Medication List Current Medications: Active Medications Chlorhexidine Gluconate (Hibiclens For Decolonization -) 1 applic TP HS MIS Last Admin: 09/13/16 22:09 Dose: 1 applic Heparin Sodium (Porcine) (Heparin -) 5,000 unit SQ TID MIS Last Admin: 09/14/16 06:00 Dose: 5,000 unit Clindamycin Phosphate (Cleocin 600 Mg Premix Ivpb -) 50 mls @ 100 mls/hr IVPB Q8H-IV MIS Last Admin: 09/14/16 02:05 Dose: 100 mls/hr Vancomycin HCl 1,250 mg/ (Dextrose) 250 mls @ 250 mls/hr IVPB DAILY [facility] Dextrose (D5w -) 1,000 mls @ 50 mls/hr IV ASDIR MIS Last Admin: 09/13/16 21:30 Dose: 50 mls/hr Propofol (Diprivan -) 100 mls @ 2.449 mls/hr IVPUSH TITR MIS; 5 MCG/KG/MIN PRN Reason: Protocol Last Admin: 09/14/16 02:30 Dose: 9.798 mls/hr Ceftriaxone Sodium (Rocephin 2gm Ivpb (Pre-Docked)) 100 mls @ 200 mls/hr IVPB DAILY [facility] Lactulose (Cephulac (Oral Use)) 20 gm NGT TID [facility] Last Admin: 09/14/16 06:00 Dose: 20 gm Mupirocin (Bactroban Ointment (For Decolonization) -) 1 applic NS BID [facility] Stop: 09/18/16 21:59 Last Admin: 09/13/16 22:43 Dose: 1 applic Pantoprazole Sodium (Protonix 40mg Ivpb (Pre-Docked)) 40 mg IVPB DAILY [facility] - Objective Vital Signs: Vital Signs Temperature 99.7 F H 09/14/16 06:00 Pulse Rate 83 09/14/16 06:00 Respiratory Rate 14 09/14/16 06:30 Blood Pressure 86/66 09/14/16 06:00 O2 Sat by Pulse Oximetry (%) 100 09/13/16 21:45 Constitutional: Yes: No Distress, Calm Eyes: Yes: WNL, Conjunctiva Clear HENT: Yes: Atraumatic, Normocephalic, Other (ET tube in place) Neck: Yes: WNL, Supple, Trachea Midline Cardiovascular: Yes: WNL, Regular Rate and Rhythm Respiratory: Yes: WNL, Regular, CTA Bilaterally Gastrointestinal: Yes: WNL, Normal Bowel Sounds Musculoskeletal: Yes: WNL Extremities: Yes: WNL Edema: No Integumentary: Yes: WNL Neurological: Yes: WNL, Alert, Oriented ...Motor Strength: WNL Psychiatric: Yes: WNL Labs: CBC, BMP 09/14/16 05:00 09/14/16 05:00 INR, PTT INR 1.03 (0.82-1.09) 09/12/16 10:30 Impression/Plan Impression/Plan: 66 yo M with h/o EtOH abuse, PE, subdural hematoma, and DVT admitted for altered mental status due to sepsis due to aspiration pneumonia Pneumonia -pt was found unconscious on floor with vomit -is now febrile with retro-cardiac consolidation on CXR -more alert but still very lethargic -started clindamycin and ceftriaxone to cover gram positives/gram negative/ anerobes -Pt remained extremely lethargic and only nodding his head "yes" when asked questions. Neck is supple, pt remained febrile and tachypnic. Extremities are completely flaccid, PERRL, babinski mute B/L. gave dose of vancomycin and zosyn , and transferred to ICU At this time causes for metabolic encephalopathy are sepsis and concurrent stroke. -now intubated and sedated -follow up blood cultures -follow up ID consult Etoh -prn ativan for agitation Visit type - Emergency Visit Emergency Visit: Yes ED Registration Date: 09/12/16 Care time: The patient presented to the Emergency Department on the above date and was hospitalized for further evaluation of their emergent condition. - New Patient This patient is new to me today: No - Critical Care Critical Care patient: Yes Total Critical Care Time (in minutes): 40 Critical Care Statement: The care of this patient involved high complexity decision making to prevent further life threatening deterioration of the patient 's condition and/or to evalute & treat vital organ system(s) failure or risk of failure.
[2016-09-14] MEDS: PANTOPRAZOLE SODIUM 40 MG/100 ML PRE-DOCKED IVPB SCH (09:33)
[2016-09-14] MEDS: CEFTRIAXONE 100 ML IVPB SCH (09:34)
[2016-09-14] MEDS: MUPIROCIN 2% TOPICAL OINTMENT FOR DECOLONIZATION NS SCH ×2 (09:36→22:44)
[2016-09-14] MEDS ORDERED: PANTOPRAZOLE SODIUM 40 MG in SODIUM CHLORIDE 100 ML IVPB SCH (10:00)
--- NOTE | 2016-09-14 11:02 | PN ---
Progress Note (short form) - Note Progress Note: PULMONARY/CCM Pt seen and examined in the ICU. Remains intubated, sedated. Febrile overnight. Last Vital Signs Temp Pulse Resp BP Pulse Ox 99.7 F H 81 18 91/69 100 09/14/16 06:00 09/14/16 10:00 09/14/16 10:00 09/14/16 10:00 09/14/16 08:39 Intake & Output 09/11/16 09/12/16 09/13/16 09/14/16 23:59 23:59 23:59 23:59 Intake Total 750 4150 345 Output Total 900 400 400 Balance -150 3750 -55 Weight 180 lb 194 lb 3.636 oz Gen: intubated, sedated Heart: RRR Lung: decreased breath sounds at the bases Abd: soft, nontender Ext: no edema CBC, BMP 09/14/16 05:00 09/14/16 05:00 ABG Results ABG pH 7.40 (7.35-7.45) 09/13/16 19:35 ABG pCO2 at Pt Temp 38.1 mmHg (35-45) 09/13/16 19:35 ABG pO2 at Pt Temp 214.0 mmHg (80-100) H* 09/13/16 19:35 ABG HCO3 23.1 meq/L (22-26) 09/13/16 19:35 ABG O2 Sat (Measured) 99.5 % (90-98.9) H 09/13/16 19:35 ABG O2 Content 19.3 % vol (15-22) 09/13/16 19:35 ABG Base Excess -0.8 meq/l (-2-2) 09/13/16 19:35 Active Medications Chlorhexidine Gluconate (Hibiclens For Decolonization -) 1 applic TP HS MIS Last Admin: 09/13/16 22:09 Dose: 1 applic Heparin Sodium (Porcine) (Heparin -) 5,000 unit SQ TID MIS Last Admin: 09/14/16 06:00 Dose: 5,000 unit Clindamycin Phosphate (Cleocin 600 Mg Premix Ivpb -) 50 mls @ 100 mls/hr IVPB Q8H-IV [facility]IS Last Admin: 09/14/16 09:36 Dose: 100 mls/hr Vancomycin HCl 1,250 mg/ (Dextrose) 250 mls @ 250 mls/hr IVPB DAILY [facility] Dextrose (D5w -) 1,000 mls @ 50 mls/hr IV ASDIR [facility] Last Admin: 09/13/16 21:30 Dose: 50 mls/hr Propofol (Diprivan -) 100 mls @ 2.449 mls/hr IVPUSH TITR MIS; 5 MCG/KG/MIN PRN Reason: Protocol Last Admin: 09/14/16 02:30 Dose: 9.798 mls/hr Ceftriaxone Sodium (Rocephin 2gm Ivpb (Pre-Docked)) 100 mls @ 200 mls/hr IVPB DAILY [facility] Last Admin: 09/14/16 09:34 Dose: 200 mls/hr Lactulose (Cephulac (Oral Use)) 20 gm NGT TID [facility] Last Admin: 09/14/16 06:00 Dose: 20 gm Mupirocin (Bactroban Ointment (For Decolonization) -) 1 applic NS BID [facility] Stop: 09/18/16 21:59 Last Admin: 09/14/16 09:36 Dose: 1 applic Pantoprazole Sodium (Protonix 40mg Ivpb (Pre-Docked)) 40 mg IVPB DAILY [facility] Last Admin: 09/14/16 09:33 Dose: 40 mg A/P Altered Mental Status Acute Respiratory Failure Pneumonia Sepsis Acute Kidney Injury Lactic Acidosis r/o Alcohol Withdrawal Hepatic Encephalopathy Hypernatremia Rhabdomyolysis h/o PE - continue antibitoics - f/u cultures - lactulose - monitor ammonia level - IVF - monitor urine output, creatinine - continue free water - hold sedation in AM to assess mental status - spontaneous breathing trials when mental status improved - DVT/GI prophylaxis
--- NOTE | 2016-09-14 11:41 | CONSULT ---
Consult Consult Specialty:: Neurology Reason for Consultation:: Rule out stroke - History of Present Illness History of Present Illness: 66 year old man with chronic history of EtOH abuse, previous admissions for Etoh withdrawl, PE, SDH, and DVT, was recently admitted for management of etoh withdrawl and treated with librium. Patient presented with altered mental status after being found unresponsive at home. While in ED was noted to be febrile, tachycardic, with utox positive for benzodiazepine and alochol. CT completed showed no acute abnormalities. Patient was intubated yesterday for airway protection. He is currently being treated with broad spectrum antibiotics including vancomycin and ceftriaxone. Lumbar puncture completed thus far shows wbc 0, rbc 1, glu 127, protein 37. Patient currently remains on mechanical vent in ICU. - Past Medical History [employer]: Yes: Other (subdural hemorrhage) Cardio/Vascular: Yes: Deep Vein Thrombosis, HTN Pulmonary: Yes: Pulmonary Embolus - Alcohol/Substance Use Hx Alcohol Use: Yes (1 pint a day) - Smoking History Smoking history: Never smoked Have you smoked in the past 12 months: No Aproximately how many cigarettes per day: 0 Home Medications - Allergies Allergies/Adverse Reactions: Allergies Allergy/AdvReac Type Severity Reaction Status Date / Time No Known Allergies Allergy Verified 09/12/16 11:13 - Home Medications Home Medications: Ambulatory Orders Folic Acid - 1 mg PO DAILY #30 tablet 09/04/16 Thiamine HCl [Vitamin B1 -] 100 mg PO DAILY #30 tablet 09/04/16 Walker [Ultra-Light Rollator] 1 each MC ONCE #1 each 09/04/16 Family Disease History - Family Disease History Family History: Unable to Obtain Review of Systems Unable to obtain ROS, reason: due to mental status Physical Exam Vital Signs: Vital Signs Temperature 99.7 F H 09/14/16 06:00 Pulse Rate 81 09/14/16 10:00 Respiratory Rate 18 09/14/16 10:00 Blood Pressure 91/69 09/14/16 10:00 O2 Sat by Pulse Oximetry (%) 100 09/14/16 08:39 HENT: Yes: Atraumatic, Normocephalic Cardiovascular: Yes: S1, S2 Respiratory: Yes: Other (on vent) Neurological: Yes: Other (MS intubated, sedated on propofol drip, does not follow commands, grimaces to sternal rub CNII-XII pupils pinpoint, no obvious gaze deviation Motor/sensory withdraws briskly in upper ext, grimaces to pain in lower ext with slight withdrawl) Labs: CBC, BMP 09/14/16 05:00 09/14/16 05:00 Assessment/Plan 66 y/o M long time EtOH user with complicated medical hx including admits for EtOH withdraw, PE, SDH and DVT. He was most recently admitted to [facility] a week ago for EtOH withdraw and treated with Librium. He presented to the ED via EMS today when he was found unresponsive at home. In the ED he was persistently febrile and altered. U-tox was positive for BDZ and EtOH, head CT was negative for an acute process, CXR showed no clear infiltrate. He was admitted to the floor and seen by Dr Dunn. He was cultured and Vanc/CTX was started for meningitis coverage. Later in the day he was found unresponsive and unable to protect his airway. He was intubated and transferred to the ICU. Neurology consulted to rule out stroke, likely metabolic encephalopathy secondary to sepsis. So far, LP shows no increased wbc and protein normal. Results of CSF pending and patient remains on broad spectrum antibiotics. Ammonia previously 127. Lactic acid 2.6. Unclear etiology for fever, ? alcohol withdrawal. Plan for repeat head CT today. Will follow. Critical care time spent 35 min.
[2016-09-14] MEDS: VANCOMYCIN 1,250 MG in DEXTROSE 5%-WATER - 250 ML IVPB SCH (12:33)
[2016-09-14] MEDS: KCL 10 MEQ IVPB 100 ML IVPB SCH ×3 (14:00→16:39)
[2016-09-14] MEDS ORDERED: VANCOMYCIN 1,250 MG in DEXTROSE 5%-WATER - 250 ML IVPB SCH (18:00)
[2016-09-14] MEDS: DEXTROSE 5%-WATER - 1,000 ML IV SCH (22:42)
[2016-09-14] MEDS: CHLORHEXIDINE GLUCONATE 4% CLEANSER FOR DECOLONIZATION TP SCH (22:51)
[2016-09-15] MEDS: CLINDAMYCIN 600MG PREMIX IVPB 50 ML IVPB SCH ×3 (02:20→17:16)
[2016-09-15] MEDS: PROPOFOL 100 ML IVPUSH SCH ×3 (02:20→22:07)
[2016-09-15] MEDS ORDERED: ACETAMINOPHEN 1000 MG/100 ML VIAL (NON FORMULARY) IVPB ONE (02:54)
[2016-09-15] MEDS: LACTULOSE 20 GM/30 ML UDC (FOR ORAL USE ONLY) NGT SCH ×3 (06:42→22:06)
[2016-09-15] MEDS: HEPARIN NA (PORCINE) 5,000 UNITS/ML 1ML VIAL SQ SCH ×3 (06:42→22:06)
[2016-09-15 07:08] LABS: BASOPHIL 0.2 % (0-2.0); EOSINOPHIL 0.8 % (0-4.5); MCH 29.7 pg (25.7-33.7); MCHC 32.5 g/dl (32.0-35.9); MEAN CELL VOLUME 91.5 fl (80-96); MEAN PLT VOLUME 10.3 fl (7.5-11.1); NEUTROPHILS 84.2 % (42.8-82.8); PLATELET COUNT 79 K/MM3 (134-434); RDW 18.9 % (11.9-15.9); WHITE BLOOD COUNT 9.5 K/mm3 (4.0-10.0)
[2016-09-15 07:32] LABS: ALBUMIN 2.5 g/dl (3.4-5.0); BILIRUBIN,TOTAL 0.8 mg/dL (0.2-1.0); CREATININE 1.3 mg/dL (0.7-1.3); MAGNESIUM 1.6 mg/dL (1.8-2.4); PHOSPHOROUS 2.9 mg/dL (2.5-4.9); TOT PROT 6.2 g/dl (6.4-8.2)
[2016-09-15 08:11] LABS: ARTERIAL BLD GAS O2 SATURATION 99.2 % (90-98.9); ARTERIAL BLOOD GAS BASE EXCESS -0.1 meq/l (-2-2); ARTERIAL BLOOD GAS HCO3 23.9 meq/L (22-26); ARTERIAL BLOOD GAS pH 7.41 (7.35-7.45)
[2016-09-15 08:13] LABS: ALLENS TEST POSITIVE; ART PUNCT SITE RIGHT RADIAL; LPM/O2% 40; MECH. VENT. YES; PT. ON O2? YES; TYPE OF O2 MECH. VENT
[2016-09-15 08:22] LABS: VENT RATE 14; VT/PRESS 450
--- NOTE | 2016-09-15 08:43 | PN ---
Progress Note, Physician - Current Medication List Current Medications: Active Medications Chlorhexidine Gluconate (Hibiclens For Decolonization -) 1 applic TP HS [facility] Last Admin: 09/14/16 22:51 Dose: 1 applic Heparin Sodium (Porcine) (Heparin -) 5,000 unit SQ TID [facility] Last Admin: 09/15/16 06:42 Dose: 5,000 unit Clindamycin Phosphate (Cleocin 600 Mg Premix Ivpb -) 50 mls @ 100 mls/hr IVPB Q8H-IV [facility] Last Admin: 09/15/16 02:20 Dose: 100 mls/hr Vancomycin HCl 1,250 mg/ (Dextrose) 250 mls @ 250 mls/hr IVPB DAILY [facility] Last Admin: 09/14/16 12:33 Dose: 250 mls/hr Dextrose (D5w -) 1,000 mls @ 50 mls/hr IV ASDIR [facility]IS Last Admin: 09/14/16 22:42 Dose: 50 mls/hr Propofol (Diprivan -) 100 mls @ 2.449 mls/hr IVPUSH TITR [facility]; 5 MCG/KG/MIN PRN Reason: Protocol Last Admin: 09/15/16 02:20 Dose: 4.899 mls/hr Ceftriaxone Sodium (Rocephin 2gm Ivpb (Pre-Docked)) 100 mls @ 200 mls/hr IVPB DAILY [facility] Last Admin: 09/14/16 09:34 Dose: 200 mls/hr Lactulose (Cephulac (Oral Use)) 20 gm NGT TID [facility] Last Admin: 09/15/16 06:42 Dose: 20 gm Mupirocin (Bactroban Ointment (For Decolonization) -) 1 applic NS BID [facility] Stop: 09/18/16 21:59 Last Admin: 09/14/16 22:44 Dose: 1 applic Pantoprazole Sodium (Protonix 40mg Ivpb (Pre-Docked)) 40 mg IVPB DAILY [facility] Last Admin: 09/14/16 09:33 Dose: 40 mg - Objective Vital Signs: Vital Signs Temperature 100.6 F H 09/15/16 06:00 Pulse Rate 86 09/15/16 08:00 Respiratory Rate 14 09/15/16 08:00 Blood Pressure 95/65 09/15/16 08:00 O2 Sat by Pulse Oximetry (%) 100 09/14/16 21:00 Constitutional: Yes: No Distress Eyes: Yes: Other (pupils constricted) HENT: Yes: WNL, Atraumatic, Normocephalic Neck: Yes: WNL, Supple, Trachea Midline Cardiovascular: Yes: WNL, Regular Rate and Rhythm Respiratory: Yes: WNL, Regular, CTA Bilaterally Gastrointestinal: Yes: WNL, Normal Bowel Sounds Musculoskeletal: Yes: WNL Extremities: Yes: WNL Edema: No Integumentary: Yes: WNL Neurological: No: Alert, Oriented ...Motor Strength: WNL Psychiatric: Yes: WNL Labs: CBC, BMP 09/15/16 05:35 09/15/16 05:35 INR, PTT INR 1.03 (0.82-1.09) 09/12/16 10:30 Impression/Plan Impression/Plan: 66 yo M with h/o EtOH abuse, PE, subdural hematoma, and DVT admitted for altered mental status due to sepsis due to aspiration pneumonia Pneumonia -pt was found unconscious on floor with vomit at home and brought to the ER -is now febrile with retro-cardiac consolidation on CXR -was more alert but still very lethargic -started clindamycin and ceftriaxone to cover gram positives/gram negative/ anerobes for possible aspiration pneumonia -Pt remained extremely lethargic and only nodding his head "yes" when asked questions. Neck is supple, pt remained febrile and tachypnic. Extremities are completely flaccid, pupils constricted, babinski mute B/L. gave dose of vancomycin and zosyn, and transferred to ICU At this time causes for metabolic encephalopathy are sepsis and concurrent stroke. -now intubated and sedated -follow up blood cultures -follow up ID consult -Vent manangement as per ICU attending Hypernatremia -resolved with D5 water Etoh -currently on propofol Visit type - Emergency Visit Emergency Visit: Yes ED Registration Date: 09/12/16 Care time: The patient presented to the Emergency Department on the above date and was hospitalized for further evaluation of their emergent condition. - New Patient This patient is new to me today: No - Critical Care Critical Care patient: Yes Total Critical Care Time (in minutes): 40 Critical Care Statement: The care of this patient involved high complexity decision making to prevent further life threatening deterioration of the patient 's condition and/or to evalute & treat vital organ system(s) failure or risk of failure.
[2016-09-15] MEDS ORDERED: PT OWN MED DRAWER 7, Y5N ONE (09:43)
[2016-09-15] MEDS: CEFTRIAXONE 100 ML IVPB SCH (10:13)
[2016-09-15] MEDS: PANTOPRAZOLE SODIUM 40 MG/100 ML PRE-DOCKED IVPB SCH (10:13)
[2016-09-15] MEDS: MUPIROCIN 2% TOPICAL OINTMENT FOR DECOLONIZATION NS SCH ×2 (10:21→22:05)
--- NOTE | 2016-09-15 11:13 | PN ---
Progress Note (short form) - Note Progress Note: PULMONARY/CCM Pt seen and examined in the ICU. Remains intubated, sedated. Febrile overnight. More responsive even on sedation. Last Vital Signs Temp Pulse Resp BP Pulse Ox 100.8 F H 90 14 103/75 100 09/15/16 10:00 09/15/16 10:00 09/15/16 10:00 09/15/16 10:00 09/15/16 09:58 Intake & Output 09/12/16 09/13/16 09/14/16 09/15/16 23:59 23:59 23:59 23:59 Intake Total 750 4150 345 863 Output Total 900 400 900 Balance -150 3750 -555 863 Weight 180 lb 194 lb 3.636 oz 193 lb 5.526 oz Gen: intubated, sedated Heart: RRR Lung: decreased breath sounds at the bases Abd: soft, nontender Ext: no edema CBC, BMP 09/15/16 05:35 09/15/16 05:35 Active Medications Chlorhexidine Gluconate (Hibiclens For Decolonization -) 1 applic TP HS [facility] Last Admin: 09/14/16 22:51 Dose: 1 applic Heparin Sodium (Porcine) (Heparin -) 5,000 unit SQ TID [facility] Last Admin: 09/15/16 06:42 Dose: 5,000 unit Clindamycin Phosphate (Cleocin 600 Mg Premix Ivpb -) 50 mls @ 100 mls/hr IVPB Q8H-IV [facility] Last Admin: 09/15/16 10:13 Dose: 100 mls/hr Vancomycin HCl 1,250 mg/ (Dextrose) 250 mls @ 250 mls/hr IVPB DAILY [facility] Last Admin: 09/14/16 12:33 Dose: 250 mls/hr Dextrose (D5w -) 1,000 mls @ 50 mls/hr IV ASDIR [facility] Last Admin: 09/14/16 22:42 Dose: 50 mls/hr Propofol (Diprivan -) 100 mls @ 2.449 mls/hr IVPUSH TITR [facility]; 5 MCG/KG/MIN PRN Reason: Protocol Last Admin: 09/15/16 02:20 Dose: 4.899 mls/hr Ceftriaxone Sodium (Rocephin 2gm Ivpb (Pre-Docked)) 100 mls @ 200 mls/hr IVPB DAILY [facility] Last Admin: 09/15/16 10:13 Dose: 200 mls/hr Lactulose (Cephulac (Oral Use)) 20 gm NGT TID [facility] Last Admin: 09/15/16 06:42 Dose: 20 gm Mupirocin (Bactroban Ointment (For Decolonization) -) 1 applic NS BID [facility] Stop: 09/18/16 21:59 Last Admin: 09/15/16 10:21 Dose: 1 applic Pantoprazole Sodium (Protonix 40mg Ivpb (Pre-Docked)) 40 mg IVPB DAILY [facility] Last Admin: 09/15/16 10:13 Dose: 40 mg A/P Altered Mental Status Acute Respiratory Failure Pneumonia Sepsis Acute Kidney Injury Lactic Acidosis r/o Alcohol Withdrawal Hepatic Encephalopathy Hypernatremia Rhabdomyolysis h/o PE - continue antibitoics - f/u cultures - lactulose - monitor ammonia level - IVF - monitor urine output, creatinine - continue free water - hold sedation in AM to assess mental status - spontaneous breathing trials when mental status improved - DVT/GI prophylaxis
[2016-09-15] MEDS: VANCOMYCIN 1,250 MG in DEXTROSE 5%-WATER - 250 ML IVPB SCH (11:48)
--- NOTE | 2016-09-15 12:01 | PN ---
Progress Note, Physician History of Present Illness: 66 year old man with chronic history of EtOH abuse, previous admissions for Etoh withdrawl, PE, SDH, and DVT, was recently admitted for management of etoh withdrawl and treated with librium. Patient presented with altered mental status after being found unresponsive at home. While in ED was noted to be febrile, tachycardic, with utox positive for benzodiazepine and alochol. CT completed showed no acute abnormalities. Patient was intubated for airway protection. He is currently being treated with broad spectrum antibiotics including vancomycin and ceftriaxone. Lumbar puncture completed thus far shows wbc 0, rbc 1, glu 127, protein 37. Patient currently remains on mechanical vent in ICU. Repeat CT head no significant change - Current Medication List Current Medications: Active Medications Chlorhexidine Gluconate (Hibiclens For Decolonization -) 1 applic TP HS [facility] Last Admin: 09/14/16 22:51 Dose: 1 applic Heparin Sodium (Porcine) (Heparin -) 5,000 unit SQ TID [facility] Last Admin: 09/15/16 06:42 Dose: 5,000 unit Clindamycin Phosphate (Cleocin 600 Mg Premix Ivpb -) 50 mls @ 100 mls/hr IVPB Q8H-IV [facility] Last Admin: 09/15/16 10:13 Dose: 100 mls/hr Vancomycin HCl 1,250 mg/ (Dextrose) 250 mls @ 250 mls/hr IVPB DAILY [facility] Last Admin: 09/15/16 11:48 Dose: 250 mls/hr Dextrose (D5w -) 1,000 mls @ 50 mls/hr IV ASDIR [facility] Last Admin: 09/14/16 22:42 Dose: 50 mls/hr Propofol (Diprivan -) 100 mls @ 2.449 mls/hr IVPUSH TITR [facility]; 5 MCG/KG/MIN PRN Reason: Protocol Last Admin: 09/15/16 11:48 Dose: 7.348 mls/hr Ceftriaxone Sodium (Rocephin 2gm Ivpb (Pre-Docked)) 100 mls @ 200 mls/hr IVPB DAILY [facility] Last Admin: 09/15/16 10:13 Dose: 200 mls/hr Lactulose (Cephulac (Oral Use)) 20 gm NGT TID [facility] Last Admin: 09/15/16 06:42 Dose: 20 gm Mupirocin (Bactroban Ointment (For Decolonization) -) 1 applic NS BID [facility] Stop: 09/18/16 21:59 Last Admin: 09/15/16 10:21 Dose: 1 applic Pantoprazole Sodium (Protonix 40mg Ivpb (Pre-Docked)) 40 mg IVPB DAILY [facility] Last Admin: 09/15/16 10:13 Dose: 40 mg - Objective Vital Signs: Vital Signs Temperature 100.8 F H 09/15/16 10:00 Pulse Rate 90 09/15/16 10:00 Respiratory Rate 14 09/15/16 10:00 Blood Pressure 103/75 09/15/16 10:00 O2 Sat by Pulse Oximetry (%) 100 09/15/16 09:58 Constitutional: Yes: Well Nourished HENT: Yes: Atraumatic, Normocephalic Neck: Yes: Supple Cardiovascular: Yes: S1, S2 Respiratory: Yes: Regular Neurological: Yes: Other (MS intubated, sedated on propofol drip, does not follow commands, grimaces to sternal rub CNII-XII pupils 3 mm sluggish, no obvious gaze deviation Motor/sensory withdraws in upper ext, grimaces to pain in lower ext with slight withdrawl) Labs: CBC, BMP 09/15/16 05:35 09/15/16 05:35 INR, PTT INR 1.03 (0.82-1.09) 09/12/16 10:30 Assessment/Plan 66 y/o M long time EtOH user with complicated medical hx including admits for EtOH withdraw, PE, SDH and DVT. He was most recently admitted to [facility] a week ago for EtOH withdraw and treated with Librium. He presented to the ED via EMS when he was found unresponsive at home. In the ED he was persistently febrile and altered. U-tox was positive for BDZ and EtOH, head CT was negative for an acute process, CXR showed no clear infiltrate. He was admitted to the floor and seen by Dr Dunn. He was cultured and Vanc/CTX was started for meningitis coverage. Later in the day he was found unresponsive and unable to protect his airway. He was intubated and transferred to the ICU. Neurology consulted to rule out stroke, likely metabolic encephalopathy secondary to sepsis. LP shows no increased wbc and protein normal. Prelim gram stain -. Repeat CT Head shows no significant change, if large stroke repeat CT head would likely show some change MRI brain without contrast when able Continue supportive care Will follow Critical care time spent 35 min.
--- NOTE | 2016-09-15 16:32 | PN ---
Progress Note, Physician History of Present Illness: Sedated on ventilator Low grade temp Sputum prelim S aureus - Current Medication List Current Medications: Active Medications Chlorhexidine Gluconate (Hibiclens For Decolonization -) 1 applic TP HS [facility] Last Admin: 09/14/16 22:51 Dose: 1 applic Heparin Sodium (Porcine) (Heparin -) 5,000 unit SQ TID [facility] Last Admin: 09/15/16 13:52 Dose: 5,000 unit Clindamycin Phosphate (Cleocin 600 Mg Premix Ivpb -) 50 mls @ 100 mls/hr IVPB Q8H-IV [facility] Last Admin: 09/15/16 10:13 Dose: 100 mls/hr Vancomycin HCl 1,250 mg/ (Dextrose) 250 mls @ 250 mls/hr IVPB DAILY [facility] Last Admin: 09/15/16 11:48 Dose: 250 mls/hr Dextrose (D5w -) 1,000 mls @ 50 mls/hr IV ASDIR [facility] Last Admin: 09/14/16 22:42 Dose: 50 mls/hr Propofol (Diprivan -) 100 mls @ 2.449 mls/hr IVPUSH TITR [facility]; 5 MCG/KG/MIN PRN Reason: Protocol Last Admin: 09/15/16 11:48 Dose: 7.348 mls/hr Ceftriaxone Sodium (Rocephin 2gm Ivpb (Pre-Docked)) 100 mls @ 200 mls/hr IVPB DAILY [facility] Last Admin: 09/15/16 10:13 Dose: 200 mls/hr Lactulose (Cephulac (Oral Use)) 20 gm NGT TID [facility] Last Admin: 09/15/16 13:52 Dose: 20 gm Mupirocin (Bactroban Ointment (For Decolonization) -) 1 applic NS BID [facility] Stop: 09/18/16 21:59 Last Admin: 09/15/16 10:21 Dose: 1 applic Pantoprazole Sodium (Protonix 40mg Ivpb (Pre-Docked)) 40 mg IVPB DAILY [facility] Last Admin: 09/15/16 10:13 Dose: 40 mg - Objective Vital Signs: Vital Signs Temperature 100.6 F H 09/15/16 14:00 Pulse Rate 100 H 09/15/16 14:00 Respiratory Rate 19 09/15/16 16:10 Blood Pressure 120/82 09/15/16 14:00 O2 Sat by Pulse Oximetry (%) 100 09/15/16 09:58 Constitutional: Yes: No Distress Eyes: Yes: Conjunctiva Clear Cardiovascular: Yes: Regular Rate and Rhythm, S1, S2 Respiratory: Yes: Mechanically Ventilated Gastrointestinal: Yes: Normal Bowel Sounds, Soft. No: Tenderness Edema: Yes Edema: LLE: 1+, RLE: 1+ Labs: CBC, BMP 09/15/16 05:35 09/15/16 05:35 INR, PTT INR 1.03 (0.82-1.09) 09/12/16 10:30 Assessment/Plan Respiratory failure Possible aspiration pneumonia + sputum c/s S aureus Continue ventilatory support Continue empiric clindamycin/ ceftriaxone/ vancomycin
[2016-09-15] MEDS: DEXTROSE 5%-WATER - 1,000 ML IV SCH (20:45)
[2016-09-15] MEDS: CHLORHEXIDINE GLUCONATE 4% CLEANSER FOR DECOLONIZATION TP SCH (22:06)
[2016-09-16] MEDS: PROPOFOL 100 ML IVPUSH SCH ×3 (02:33→22:43)
[2016-09-16] MEDS: CLINDAMYCIN 600MG PREMIX IVPB 50 ML IVPB SCH (02:33)
[2016-09-16 06:09] LABS: BASOPHIL 0.5 % (0-2.0); EOSINOPHIL 2.5 % (0-4.5); MCH 28.8 pg (25.7-33.7); MCHC 31.8 g/dl (32.0-35.9); MEAN CELL VOLUME 90.5 fl (80-96); MEAN PLT VOLUME 10.5 fl (7.5-11.1); NEUTROPHILS 77.8 % (42.8-82.8); PLATELET COUNT 100 K/MM3 (134-434); RDW 18.6 % (11.9-15.9); WHITE BLOOD COUNT 6.1 K/mm3 (4.0-10.0)
[2016-09-16] MEDS: HEPARIN NA (PORCINE) 5,000 UNITS/ML 1ML VIAL SQ SCH ×3 (06:19→21:28)
[2016-09-16] MEDS: LACTULOSE 20 GM/30 ML UDC (FOR ORAL USE ONLY) NGT SCH ×3 (06:19→21:28)
[2016-09-16 07:07] LABS: ALBUMIN 2.4 g/dl (3.4-5.0); CALCIUM 8.1 mg/dL (8.5-10.1); MAGNESIUM 1.8 mg/dL (1.8-2.4)
[2016-09-16 07:13] LABS: BILIRUBIN,TOTAL 0.5 mg/dL (0.2-1.0); CREATININE 1.4 mg/dL (0.7-1.3); PHOSPHOROUS 3.3 mg/dL (2.5-4.9)
[2016-09-16 07:27] LABS: ARTERIAL BLD GAS O2 SATURATION 98.8 % (90-98.9); ARTERIAL BLOOD GAS BASE EXCESS -0.9 meq/l (-2-2); ARTERIAL BLOOD GAS HCO3 23.5 meq/L (22-26); ARTERIAL BLOOD GAS pH 7.38 (7.35-7.45)
[2016-09-16 07:28] LABS: ALLENS TEST POSITIVE; ART PUNCT SITE RIGHT RADIAL; LPM/O2% 35%; MECH. VENT. MECH VENT; PT. ON O2? YES; TYPE OF O2 MECH VENT; VENT RATE 14; VT/PRESS 450
--- NOTE | 2016-09-16 07:29 | PN ---
Progress Note, Physician Chief Complaint: ID Remains intubated Vancomycin Clindamycin Ceftriaxone - Current Medication List Current Medications: Active Medications Chlorhexidine Gluconate (Hibiclens For Decolonization -) 1 applic TP HS [facility] Last Admin: 09/15/16 22:06 Dose: 1 applic Heparin Sodium (Porcine) (Heparin -) 5,000 unit SQ TID [facility] Last Admin: 09/16/16 06:19 Dose: 5,000 unit Clindamycin Phosphate (Cleocin 600 Mg Premix Ivpb -) 50 mls @ 100 mls/hr IVPB Q8H-IV [facility] Last Admin: 09/16/16 02:33 Dose: 100 mls/hr Vancomycin HCl 1,250 mg/ (Dextrose) 250 mls @ 250 mls/hr IVPB DAILY [facility] Last Admin: 09/15/16 11:48 Dose: 250 mls/hr Dextrose (D5w -) 1,000 mls @ 50 mls/hr IV ASDIR [facility] Last Admin: 09/15/16 20:45 Dose: 50 mls/hr Propofol (Diprivan -) 100 mls @ 2.449 mls/hr IVPUSH TITR MIS; 5 MCG/KG/MIN PRN Reason: Protocol Last Admin: 09/16/16 02:33 Dose: Not Given Ceftriaxone Sodium (Rocephin 2gm Ivpb (Pre-Docked)) 100 mls @ 200 mls/hr IVPB DAILY [facility] Last Admin: 09/15/16 10:13 Dose: 200 mls/hr Lactulose (Cephulac (Oral Use)) 20 gm NGT TID [facility] Last Admin: 09/16/16 06:19 Dose: 20 gm Mupirocin (Bactroban Ointment (For Decolonization) -) 1 applic NS BID [facility] Stop: 09/18/16 21:59 Last Admin: 09/15/16 22:05 Dose: 1 applic Pantoprazole Sodium (Protonix 40mg Ivpb (Pre-Docked)) 40 mg IVPB DAILY [facility] Last Admin: 09/15/16 10:13 Dose: 40 mg - Objective Vital Signs: Vital Signs Temperature 99 F 09/16/16 06:00 Pulse Rate 70 09/16/16 06:00 Respiratory Rate 18 09/16/16 06:52 Blood Pressure 110/60 09/16/16 06:00 O2 Sat by Pulse Oximetry (%) 96 09/15/16 20:00 Constitutional: Yes: Other (Intubated) HENT: Yes: Other (Et tube) Cardiovascular: Yes: Regular Rate and Rhythm, S1, S2. No: Murmur Respiratory: Yes: WNL, Regular, CTA Bilaterally Gastrointestinal: Yes: WNL, Normal Bowel Sounds, Soft. No: Tenderness, Tenderness, Epigastrium Edema: No Labs: CBC, BMP 09/16/16 05:05 INR, PTT INR 1.03 (0.82-1.09) 09/12/16 10:30 Problem List - Problems (1) Altered mental status Code(s): R41.82 - ALTERED MENTAL STATUS, UNSPECIFIED Qualifiers: Altered mental status type: unspecified Qualified Code(s): R41.82 - Altered mental status, unspecified (2) Sepsis Code(s): A41.9 - SEPSIS, UNSPECIFIED ORGANISM Assessment/Plan Microbiology 09/14/16 08:45 Sputum - Endotrachea Suction/Ventilator Gram Stain - Final 09/14/16 08:45 Sputum - Endotrachea Suction/Ventilator Sputum Culture - Preliminary Staphylococcus Latex Coag Pos 09/13/16 21:50 Cerebral Spinal Fluid - Lumbar Puncture Cryptococcal Antigen - Preliminary 09/13/16 21:50 Cerebral Spinal Fluid - Lumbar Puncture Viral Culture - Preliminary 09/13/16 08:50 Blood - Peripheral Venous Blood Culture - Preliminary NO GROWTH OBTAINED AFTER 48 HOURS, INCUBATION TO CONTINUE FOR 3 DAYS. 09/13/16 08:47 Blood - Peripheral Venous Blood Culture - Preliminary NO GROWTH OBTAINED AFTER 48 HOURS, INCUBATION TO CONTINUE FOR 3 DAYS. Laboratory Tests 09/15/16 09/15/16 09/16/16 05:35 07:55 05:05 WBC 6.1 D Hgb 11.4 L Hct 35.9 Plt Count 100 L D ABG pO2 at Pt Temp 155.0 H* Oxygen Flow Rate 40 Creat Clearance w eGFR 55.23 Total Bilirubin 0.8 AST 42 H D ALT 36 Alkaline Phosphatase 46 Assessment Polysubstance abuse with altered mental status from admission Sepsis syndrome thought secondary to pulmonary source Respiratory failure Low platelets from sepsis ? alcohol related Staph aureus in sputum Chest xray not impressive for PNA Plan Will stop clindamycin Vancomycin pending sputum sensitivity Shaun MULLIGAN
[2016-09-16] MEDS: PANTOPRAZOLE SODIUM 40 MG/100 ML PRE-DOCKED IVPB SCH (09:35)
[2016-09-16] MEDS: CEFTRIAXONE 100 ML IVPB SCH (09:35)
[2016-09-16] MEDS: VANCOMYCIN 1,250 MG in DEXTROSE 5%-WATER - 250 ML IVPB SCH (09:37)
--- NOTE | 2016-09-16 10:59 | PN ---
Progress Note (short form) - Note Progress Note: PULMONARY/CCM Progress Note Patient seen and examined in the ICU. Remains intubated, sedated on low dose propofol. AC Mode of vent, 35% FiO2, PEEP 5. No pressors. Intake & Output 09/13/16 09/14/16 09/15/16 09/16/16 23:59 23:59 23:59 23:59 Intake Total 4150 345 1901 796 Output Total 400 900 200 600 Balance 3750 -555 1701 196 Weight 194 lb 3.636 oz 193 lb 5.526 oz 193 lb 5.526 oz Last Vital Signs Temp Pulse Resp BP Pulse Ox 99 F 76 14 106/89 96 09/16/16 10:00 09/16/16 10:00 09/16/16 10:00 09/16/16 10:00 09/16/16 09:00 Active Medications Chlorhexidine Gluconate (Hibiclens For Decolonization -) 1 applic TP HS [facility] Last Admin: 09/15/16 22:06 Dose: 1 applic Heparin Sodium (Porcine) (Heparin -) 5,000 unit SQ TID [facility] Last Admin: 09/16/16 06:19 Dose: 5,000 unit Vancomycin HCl 1,250 mg/ (Dextrose) 250 mls @ 250 mls/hr IVPB DAILY [facility] Last Admin: 09/16/16 09:37 Dose: 250 mls/hr Dextrose (D5w -) 1,000 mls @ 50 mls/hr IV ASDIR [facility] Last Admin: 09/15/16 20:45 Dose: 50 mls/hr Propofol (Diprivan -) 100 mls @ 2.449 mls/hr IVPUSH TITR MIS; 5 MCG/KG/MIN PRN Reason: Protocol Last Admin: 09/16/16 09:36 Dose: 7.348 mls/hr Ceftriaxone Sodium (Rocephin 2gm Ivpb (Pre-Docked)) 100 mls @ 200 mls/hr IVPB DAILY [facility] Last Admin: 09/16/16 09:35 Dose: 200 mls/hr Lactulose (Cephulac (Oral Use)) 20 gm NGT TID [facility] Last Admin: 09/16/16 06:19 Dose: 20 gm Mupirocin (Bactroban Ointment (For Decolonization) -) 1 applic NS BID [facility] Stop: 09/18/16 21:59 Last Admin: 09/15/16 22:05 Dose: 1 applic Pantoprazole Sodium (Protonix 40mg Ivpb (Pre-Docked)) 40 mg IVPB DAILY [facility] Last Admin: 09/16/16 09:35 Dose: 40 mg Gen: intubated, sedated Heart: RRR Lung: decreased breath sounds at the bases, with a few scattered rhonchi Abd: soft, nontender Ext: no edema Laboratory Results - last 24 hr 09/15/16 09/16/16 09/16/16 23:56 05:05 05:05 WBC 6.1 D RBC 3.97 L Hgb 11.4 L Hct 35.9 MCV 90.5 MCHC 31.8 L RDW 18.6 H Plt Count 100 L D MPV 10.5 Neutrophils % 77.8 Lymphocytes % 10.8 D Monocytes % 8.4 Eosinophils % 2.5 D Basophils % 0.5 Puncture Site ABG pH ABG pCO2 at Pt Temp ABG pO2 at Pt Temp ABG HCO3 ABG O2 Sat (Measured) ABG O2 Content ABG Base Excess Mario Alberto Test O2 Delivery Device Oxygen Flow Rate Vent Mode Vent Rate Mechanical Rate PEEP Pressure Support Vent Sodium 144 Potassium 3.4 L Chloride 107 Carbon Dioxide 27 Anion Gap 10 BUN 22 H Creatinine 1.4 H Creat Clearance w eGFR 50.70 POC Glucometer 132.63746 Random Glucose 115 H Calcium 8.1 L Phosphorus 3.3 Magnesium 1.8 Total Bilirubin 0.5 D AST 24 D ALT 28 D Alkaline Phosphatase 44 L Total Protein 6.0 L Albumin 2.4 L 09/16/16 07:25 WBC RBC Hgb Hct MCV MCHC RDW Plt Count MPV Neutrophils % Lymphocytes % Monocytes % Eosinophils % Basophils % Puncture Site Right radial ABG pH 7.38 ABG pCO2 at Pt Temp 40.3 ABG pO2 at Pt Temp 127.0 H D ABG HCO3 23.5 ABG O2 Sat (Measured) 98.8 ABG O2 Content 16.2 ABG Base Excess -0.9 Mario Alberto Test Positive O2 Delivery Device Mech vent Oxygen Flow Rate 35% Vent Mode A/c Vent Rate 14 Mechanical Rate Mech vent PEEP 5.0 Pressure Support Vent 450 Sodium Potassium Chloride Carbon Dioxide Anion Gap BUN Creatinine Creat Clearance w eGFR POC Glucometer Random Glucose Calcium Phosphorus Magnesium Total Bilirubin AST ALT Alkaline Phosphatase Total Protein Albumin A/P Altered Mental Status Acute Respiratory Failure Pneumonia Sepsis Acute Kidney Injury Lactic Acidosis r/o Alcohol Withdrawal Hepatic Encephalopathy Hypernatremia Rhabdomyolysis h/o PE - continue antibitoics per ID - f/u final cultures - lactulose - monitor ammonia level - monitor urine output, creatinine - Free water - hold sedation to assess mental status - spontaneous breathing trials when mental status improved - DVT/GI prophylaxis Dr Galan [id number]"
--- NOTE | 2016-09-16 13:09 | PN ---
Progress Note, Physician History of Present Illness: 66 year old man with chronic history of EtOH abuse, previous admissions for Etoh withdrawl, PE, SDH, and DVT, was recently admitted for management of etoh withdrawl and treated with librium. Patient presented with altered mental status after being found unresponsive at home. While in ED was noted to be febrile, tachycardic, with utox positive for benzodiazepine and alochol. CT completed showed no acute abnormalities. Patient was intubated for airway protection. He is currently being treated with broad spectrum antibiotics including vancomycin and ceftriaxone. Lumbar puncture completed thus far shows wbc 0, rbc 1, glu 127, protein 37. Patient currently remains on mechanical vent in ICU. Repeat CT head no significant change No acute events overnight - Current Medication List Current Medications: Active Medications Chlorhexidine Gluconate (Hibiclens For Decolonization -) 1 applic TP HS [facility] Last Admin: 09/15/16 22:06 Dose: 1 applic Heparin Sodium (Porcine) (Heparin -) 5,000 unit SQ TID [facility] Last Admin: 09/16/16 06:19 Dose: 5,000 unit Vancomycin HCl 1,250 mg/ (Dextrose) 250 mls @ 250 mls/hr IVPB DAILY [facility] Last Admin: 09/16/16 09:37 Dose: 250 mls/hr Dextrose (D5w -) 1,000 mls @ 50 mls/hr IV ASDIR [facility] Last Admin: 09/15/16 20:45 Dose: 50 mls/hr Propofol (Diprivan -) 100 mls @ 2.449 mls/hr IVPUSH TITR [facility]IS; 5 MCG/KG/MIN PRN Reason: Protocol Last Admin: 09/16/16 09:36 Dose: 7.348 mls/hr Ceftriaxone Sodium (Rocephin 2gm Ivpb (Pre-Docked)) 100 mls @ 200 mls/hr IVPB DAILY [facility] Last Admin: 09/16/16 09:35 Dose: 200 mls/hr Lactulose (Cephulac (Oral Use)) 20 gm NGT TID [facility] Last Admin: 09/16/16 06:19 Dose: 20 gm Mupirocin (Bactroban Ointment (For Decolonization) -) 1 applic NS BID [facility] Stop: 09/18/16 21:59 Last Admin: 09/15/16 22:05 Dose: 1 applic Pantoprazole Sodium (Protonix 40mg Ivpb (Pre-Docked)) 40 mg IVPB DAILY [facility] Last Admin: 09/16/16 09:35 Dose: 40 mg - Objective Vital Signs: Vital Signs Temperature 99 F 09/16/16 10:00 Pulse Rate 72 09/16/16 12:00 Respiratory Rate 14 09/16/16 12:00 Blood Pressure 122/73 09/16/16 12:00 O2 Sat by Pulse Oximetry (%) 100 09/16/16 11:45 Constitutional: Yes: Calm Eyes: Yes: EOM Intact HENT: Yes: Atraumatic, Normocephalic Cardiovascular: Yes: S1, S2 Respiratory: Yes: Regular Neurological: Yes: Other (MS intubated, off propofol drip, does not follow commands, opens eyes to sternal rub CNII-XII pupils 3 mm sluggish, no obvious gaze deviation Motor/sensory withdraws in upper ext, grimaces to pain in lower ext with slight withdrawl) Labs: CBC, BMP 09/16/16 05:05 09/16/16 05:05 INR, PTT INR 1.03 (0.82-1.09) 09/12/16 10:30 Assessment/Plan 66 y/o M long time EtOH user with complicated medical hx including admits for EtOH withdraw, PE, SDH and DVT. He was most recently admitted to [facility] a week ago for EtOH withdraw and treated with Librium. He presented to the ED via EMS when he was found unresponsive at home. In the ED he was persistently febrile and altered. U-tox was positive for BDZ and EtOH, head CT was negative for an acute process, CXR showed no clear infiltrate. He was admitted to the floor and seen by Dr Dunn. He was cultured and Vanc/CTX was started for meningitis coverage. Later in the day he was found unresponsive and unable to protect his airway. He was intubated and transferred to the ICU. Neurology consulted to rule out stroke, likely metabolic encephalopathy secondary to sepsis, unclear source possible pulmonary? On antibiotics Sputum + staph aureus LP shows no increased wbc and protein normal. Prelim gram stain -. Repeat CT Head shows no significant change, if large stroke repeat CT head would likely show some change MRI brain without contrast whenever off vent and able to tolerate Continue supportive care Will follow Critical care time spent 35 min.
[2016-09-16] MEDS: MUPIROCIN 2% TOPICAL OINTMENT FOR DECOLONIZATION NS SCH ×2 (14:29→21:28)
--- NOTE | 2016-09-16 14:46 | PN ---
<Julian Shepard - Last Filed: 09/16/16 15:37> Physical Exam: ATTENDING PHYSICIAN STATEMENT I saw and evaluated the patient. I reviewed the resident's note and discussed the case with the resident. I agree with the resident's findings and plan as documented. SUBJECTIVE: seen and evaluated at the bedside OBJECTIVE: intubated, mild sedation but AAO, recognizes me when asked, and asking "what happened" ASSESSMENT AND PLAN: 66 yo M with h/o EtOH abuse, PE, subdural hematoma, and DVT admitted for altered mental status due to sepsis due to aspiration pneumonia Pneumonia -pt was found unconscious on floor with vomit at home and brought to the ER -is now febrile with retro-cardiac consolidation on CXR -was more alert but still very lethargic -started clindamycin and ceftriaxone to cover gram positives/gram negative/ anerobes for possible aspiration pneumonia -Pt remained extremely lethargic and only nodding his head "yes" when asked questions. Neck is supple, pt remained febrile and tachypnic. Extremities are completely flaccid, pupils constricted, babinski mute B/L. gave dose of vancomycin and zosyn, and transferred to ICU At this time causes for metabolic encephalopathy are sepsis and concurrent stroke. -now intubated and mildly sedated but mental status markedly improved -follow up blood cultures -follow up ID consult -Vent manangement as per ICU attending Hypernatremia -resolved with D5 water Etoh withdrawal -currently on propofol <Cheryl Sosa - Last Filed: 09/16/16 18:31> Physical Exam: SUBJECTIVE: Patient seen and examined at bed side. AAO patient is on mild sedation. patient is inquisitive and "asking what happened" patient understands he is a hospital and recognizes Dr shepard from previous admission. no current CP, N/V/D, no fever today. OBJECTIVE: Vital Signs Period Temp Pulse Resp BP Sys/Guan Pulse Ox Last 24 Hr 98.9 F-99.8 F 70-84 14-19 94-122/60-89 96-100 GENERAL: The patient is awake, alert, and fully oriented, in no acute distress. HEAD: Normal with no signs of trauma. EYES: PERRL, extraocular movements intact, sclera anicteric, conjunctiva clear. No ptosis. ENT: Ears normal, nares patent, oropharynx clear without exudates, moist mucous membranes. Intubated NECK: Trachea midline, full range of motion, supple. LUNGS: decreased breath sounds at the bases, with a few scattered rhonchi HEART: Regular rate and rhythm, S1, S2 without murmur, rub or gallop. ABDOMEN: Soft, nontender, nondistended, normoactive bowel sounds, no guarding, no rebound, no hepatosplenomegaly, no masses. EXTREMITIES: 2+ pulses, warm, well-perfused, no edema. NEUROLOGICAL: Cranial nerves II through XII grossly intact. Normal speech, gait not observed. PSYCH: Normal mood, normal affect. SKIN: Warm, dry, normal turgor, no rashes or lesions noted Laboratory Results - last 24 hr 09/15/16 09/16/16 09/16/16 23:56 05:05 05:05 WBC 6.1 D RBC 3.97 L Hgb 11.4 L Hct 35.9 MCV 90.5 MCHC 31.8 L RDW 18.6 H Plt Count 100 L D MPV 10.5 Neutrophils % 77.8 Lymphocytes % 10.8 D Monocytes % 8.4 Eosinophils % 2.5 D Basophils % 0.5 Puncture Site ABG pH ABG pCO2 at Pt Temp ABG pO2 at Pt Temp ABG HCO3 ABG O2 Sat (Measured) ABG O2 Content ABG Base Excess Mario Alberto Test O2 Delivery Device Oxygen Flow Rate Vent Mode Vent Rate Mechanical Rate PEEP Pressure Support Vent Sodium 144 Potassium 3.4 L Chloride 107 Carbon Dioxide 27 Anion Gap 10 BUN 22 H Creatinine 1.4 H Creat Clearance w eGFR 50.70 POC Glucometer 132.78324 Random Glucose 115 H Calcium 8.1 L Phosphorus 3.3 Magnesium 1.8 Total Bilirubin 0.5 D AST 24 D ALT 28 D Alkaline Phosphatase 44 L Total Protein 6.0 L Albumin 2.4 L 09/16/16 07:25 WBC RBC Hgb Hct MCV MCHC RDW Plt Count MPV Neutrophils % Lymphocytes % Monocytes % Eosinophils % Basophils % Puncture Site Right radial ABG pH 7.38 ABG pCO2 at Pt Temp 40.3 ABG pO2 at Pt Temp 127.0 H D ABG HCO3 23.5 ABG O2 Sat (Measured) 98.8 ABG O2 Content 16.2 ABG Base Excess -0.9 Mario Alberto Test Positive O2 Delivery Device Mech vent Oxygen Flow Rate 35% Vent Mode A/c Vent Rate 14 Mechanical Rate Mech vent PEEP 5.0 Pressure Support Vent 450 Sodium Potassium Chloride Carbon Dioxide Anion Gap BUN Creatinine Creat Clearance w eGFR POC Glucometer Random Glucose Calcium Phosphorus Magnesium Total Bilirubin AST ALT Alkaline Phosphatase Total Protein Albumin Active Medications Generic Name Dose Route Start Last Admin Trade Name Freq PRN Reason Stop Dose Admin Chlorhexidine Gluconate 1 applic 09/13/16 22:00 09/15/16 22:06 Hibiclens For Decolonization - TP 1 applic HS [facility] Administration Heparin Sodium (Porcine) 5,000 unit 09/13/16 22:00 09/16/16 06:19 Heparin - SQ 5,000 unit TID [facility] Administration Vancomycin HCl 1,250 mg/ 250 mls @ 250 mls/hr 09/14/16 10:00 09/16/16 09:37 Dextrose IVPB 250 mls/hr DAILY [facility] Administration Dextrose 1,000 mls @ 50 mls/hr 09/13/16 20:45 09/15/16 20:45 D5w - IV 50 mls/hr ASDIR [facility] Administration Propofol 100 mls @ 2.449 mls/hr 09/14/16 02:30 09/16/16 09:36 Diprivan - IVPUSH 7.348 mls/hr TITR [facility]IS Administration Protocol 5 MCG/KG/MIN Ceftriaxone Sodium 100 mls @ 200 mls/hr 09/14/16 10:00 09/16/16 09:35 Rocephin 2gm Ivpb (Pre-Docked) IVPB 200 mls/hr DAILY [facility] Administration Lactulose 20 gm 09/13/16 22:00 09/16/16 06:19 Cephulac (Oral Use) NGT 20 gm TID [facility] Administration Mupirocin 1 applic 09/13/16 22:00 09/15/16 22:05 Bactroban Ointment (For Decolonization) - NS 09/18/16 21:59 1 applic BID [facility] Administration Pantoprazole Sodium 40 mg 09/14/16 10:00 09/16/16 09:35 Protonix 40mg Ivpb (Pre-Docked) IVPB 40 mg DAILY [facility] Administration CXR: Since the prior study of 09/15/2016 at 0733 hours, the endotracheal tube and nasogastric tube persist. Again noted is atelectasis or infiltrate in the left lower lobe and left infrahilar area. The right lung is clear. Follow-up recommended. If findings do not resolve, CT is suggested Impression: No significant change since prior study. Persistent left base and left infrahilar changes. ASSESSMENT/PLAN: 66 yo M admitted to telemetry for alcohol withdrawal and possible benzo overdose found on the floor of his appartment for undetermined length of time face and nostrals covered with dry vomitus, patient presented to ED obtunded. Found to have elevated lactic acid pH of 7.23, trending up lactic acid, BUN/Cr 36/1.6, Sodium 151, negative troponins, CXR negative for pulmonary dz, Ct showed moderate atrophy and ventricular dilation (consistent with prior CT on ) without interval change or acute intracranial pathology. Urine tox positive for alcohol and benzos. AMS possibly to Infection v metabolic encephalopathy 2/2 sepsis of unclear source possibly aspiration. improving form yesterday - PO thiamine and folic acid - Neuro check q1hr -neurology consult- stroke less likely. - will consider lumbar puncture wNL. 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 Benzo overdose: - Monitor vitals - f/u ABG and lactic acid Metabolic lactic acidosis, most likely secondary to ARF [place]- BUN, Cr trending up IVF h/o PE and DVT - not on anticoagulation FEN - elevated bili, AST, ALT, will monitor - NPO - NS, bicarb -D5W 50cc/hr Prophylaxis - GI: not indicated - deconditioning: fall precaution Dispo: patient accepted to ICU and nurses are aware of transfer.patient discussed with accepting Attending and resident Visit type - Emergency Visit Emergency Visit: Yes ED Registration Date: 09/12/16 Care time: The patient presented to the Emergency Department on the above date and was hospitalized for further evaluation of their emergent condition. - New Patient This patient is new to me today: No - Critical Care Critical Care patient: Yes Total Critical Care Time (in minutes): 45 Critical Care Statement: The care of this patient involved high complexity decision making to prevent further life threatening deterioration of the patient 's condition and/or to evalute & treat vital organ system(s) failure or risk of failure.
[2016-09-16] MEDS: DEXTROSE 5%-WATER - 1,000 ML IV SCH (21:27)
[2016-09-16] MEDS: CHLORHEXIDINE GLUCONATE 4% CLEANSER FOR DECOLONIZATION TP SCH (21:28)
[2016-09-16] MEDS ORDERED: POTASSIUM CHLORIDE 40 MEQ/30 ML UNIT DOSE CUP PO ONE (22:52)
[2016-09-17 06:08] LABS: MCH 28.6 pg (25.7-33.7); MCHC 31.8 g/dl (32.0-35.9); MEAN CELL VOLUME 90.2 fl (80-96); MEAN PLT VOLUME 11.2 fl (7.5-11.1); PLATELET COUNT 135 K/MM3 (134-434); RDW 18.2 % (11.9-15.9); WHITE BLOOD COUNT 6.2 K/mm3 (4.0-10.0)
[2016-09-17] MEDS: LACTULOSE 20 GM/30 ML UDC (FOR ORAL USE ONLY) NGT SCH (06:19)
[2016-09-17] MEDS: PROPOFOL 100 ML IVPUSH SCH (06:19)
[2016-09-17] MEDS: HEPARIN NA (PORCINE) 5,000 UNITS/ML 1ML VIAL SQ SCH ×3 (06:21→21:55)
[2016-09-17 06:35] LABS: ALBUMIN 2.6 g/dl (3.4-5.0); ALK PHOS 46 U/L (45-117); ANION GAP 13 (8-16); BILIRUBIN,TOTAL 0.5 mg/dL (0.2-1.0); CALCIUM 8.4 mg/dL (8.5-10.1); CO2 26 mmol/L (21-32); CREATININE 1.1 mg/dL (0.7-1.3); GLUCOSE,RANDOM 108 mg/dL (74-106); PHOSPHOROUS 2.4 mg/dL (2.5-4.9); SGPT/ALT 26 U/L (12-78); TOT PROT 6.7 g/dl (6.4-8.2)
[2016-09-17 06:43] LABS: SGOT/AST 24 U/L (15-37)
[2016-09-17 07:21] LABS: ARTERIAL BLD GAS O2 SATURATION 99.4 % (90-98.9); ARTERIAL BLOOD GAS BASE EXCESS 0.3 meq/l (-2-2); ARTERIAL BLOOD GAS HCO3 24.6 meq/L (22-26)
[2016-09-17 07:22] LABS: ALLENS TEST POSITIVE; ART PUNCT SITE RIGHT RADIAL; LPM/O2% 35; MECH. VENT. YES; PT. ON O2? YES; TYPE OF O2 VENT; VENT RATE 14; VT/PRESS 450
--- NOTE | 2016-09-17 07:53 | PN ---
Physical Exam: SUBJECTIVE: Patient seen and examined at bed side in ICU. patient AAOx2. patient un able to recall why he is at hospital and is confused.patient reports patient reports feeling well and wanting to leave. I discussed with patients what brought him into the hospital, hospital course, reoriented him to time. patient denies any chest pain, N/V/D/C. patient extubated with mild sedation. OBJECTIVE: Vital Signs Period Temp Pulse Resp BP Sys/Guan Pulse Ox Last 24 Hr 99 F-99.7 F 71-80 14-19 97-126/64-89 96-100 GENERAL: AAOx2 in no acute distress, confused/delirious . HEAD: Normal with no signs of trauma. EYES: PERRL, extraocular movements intact, sclera anicteric, conjunctiva clear. No ptosis. ENT: Ears normal, nares patent, oropharynx clear without exudates, dry mucous membranes. membranes. Intubated NECK: Trachea midline, full range of motion, supple. LUNGS: decreased breath sounds at the bases, with a few scattered rhonchi HEART: Regular rate and rhythm, S1, S2 without murmur, rub or gallop. ABDOMEN: Soft, nontender, nondistended, normoactive bowel sounds, no guarding, no rebound, no hepatosplenomegaly, no masses. EXTREMITIES: 2+ pulses, warm, well-perfused, no edema. +3/5 strength BL upper ext, +2/5 strength Bl lower ext NEUROLOGICAL: Cranial nerves II through XII grossly intact. Normal speech, gait not observed. PSYCH: Normal mood, normal affect. SKIN: Warm, dry, normal turgor, no rashes or lesions noted Laboratory Results - last 24 hr 09/16/16 09/17/16 09/17/16 21:24 05:00 05:00 WBC 6.2 RBC 4.04 Hgb 11.6 L Hct 36.5 MCV 90.2 MCHC 31.8 L RDW 18.2 H Plt Count 135 D MPV 11.2 H Puncture Site ABG pH ABG pCO2 at Pt Temp ABG pO2 at Pt Temp ABG HCO3 ABG O2 Sat (Measured) ABG O2 Content ABG Base Excess Mario Alberto Test O2 Delivery Device Oxygen Flow Rate Vent Mode Vent Rate Mechanical Rate PEEP Pressure Support Vent Sodium 145 Potassium 3.5 Chloride 106 Carbon Dioxide 26 Anion Gap 13 BUN 15 D Creatinine 1.1 D Creat Clearance w eGFR > 60 POC Glucometer 128.88763 Random Glucose 108 H Calcium 8.4 L Phosphorus 2.4 L D Magnesium 2.0 Total Bilirubin 0.5 AST 24 ALT 26 Alkaline Phosphatase 46 Total Protein 6.7 Albumin 2.6 L 09/17/16 07:10 WBC RBC Hgb Hct MCV MCHC RDW Plt Count MPV Puncture Site Right radial ABG pH 7.40 ABG pCO2 at Pt Temp 41.0 ABG pO2 at Pt Temp 161.0 H* ABG HCO3 24.6 ABG O2 Sat (Measured) 99.4 H ABG O2 Content 15.8 ABG Base Excess 0.3 Mario Alberto Test Positive O2 Delivery Device Vent Oxygen Flow Rate 35 Vent Mode A/c Vent Rate 14 Mechanical Rate Yes PEEP 5.0 Pressure Support Vent 450 Sodium Potassium Chloride Carbon Dioxide Anion Gap BUN Creatinine Creat Clearance w eGFR POC Glucometer Random Glucose Calcium Phosphorus Magnesium Total Bilirubin AST ALT Alkaline Phosphatase Total Protein Albumin Active Medications Generic Name Dose Route Start Last Admin Trade Name Kaleb PRN Reason Stop Dose Admin Chlorhexidine Gluconate 1 applic 09/13/16 22:00 09/16/16 21:28 Hibiclens For Decolonization - TP 1 applic HS MIS Administration Heparin Sodium (Porcine) 5,000 unit 09/13/16 22:00 09/17/16 06:21 Heparin - SQ 5,000 unit TID MIS Administration Vancomycin HCl 1,250 mg/ 250 mls @ 250 mls/hr 09/14/16 10:00 09/16/16 09:37 Dextrose IVPB 250 mls/hr DAILY MIS Administration Dextrose 1,000 mls @ 50 mls/hr 09/13/16 20:45 09/16/16 21:27 D5w - IV 50 mls/hr ASDIR MIS Administration Propofol 100 mls @ 2.449 mls/hr 09/14/16 02:30 09/17/16 06:19 Diprivan - IVPUSH Not Given TITR MIS Protocol 5 MCG/KG/MIN Ceftriaxone Sodium 100 mls @ 200 mls/hr 09/14/16 10:00 09/16/16 09:35 Rocephin 2gm Ivpb (Pre-Docked) IVPB 200 mls/hr DAILY MIS Administration Lactulose 20 gm 09/13/16 22:00 09/17/16 06:19 Cephulac (Oral Use) NGT 20 gm TID MIS Administration Mupirocin 1 applic 09/13/16 22:00 09/16/16 21:28 Bactroban Ointment (For Decolonization) - NS 09/18/16 21:59 1 applic BID MIS Administration Pantoprazole Sodium 40 mg 09/14/16 10:00 09/16/16 09:35 Protonix 40mg Ivpb (Pre-Docked) IVPB 40 mg DAILY MIS Administration ASSESSMENT/PLAN: 66 yo M admitted to telemetry for alcohol withdrawal and possible benzo overdose found on the floor of his appartment for undetermined length of time face and nostrals covered with dry vomitus, patient presented to ED obtunded. Found to have elevated lactic acid pH of 7.23, trending up lactic acid, BUN/Cr 36/1.6, Sodium 151, negative troponins, CXR negative for pulmonary dz, Ct showed moderate atrophy and ventricular dilation (consistent with prior CT on ) without interval change or acute intracranial pathology. Urine tox positive for alcohol and benzos. AMS-Acute metabolic encephalopathy-mental status improving, moving limbs is improving. less likely from hyperammonemia, possible false elevated. possibly 2/ 2 sepsis, metabolic encephalopathy 2/2 sepsis of unclear source possibly aspiration. improving form yesterday - hold sedation. cont to monitor. - Neuro check q1hr -neurology consult- stroke less likely. repeat CT negative - lumbar puncture wNL. -Oxygen suplement -started clindamycin and ceftriaxone Vancomycin Ceftriaxone -hold sedation to assess mental status -spontaneous breathing trials when mental status improved -Vent manangement as per ICU attending Acute respiratory failure- s/p intubated for airway protection. extubated today. tolerating 98% on nonrebreather. -titrate down oxygen as tolerated. Sepsis due to PNA-possible aspiration. SCx MRSA. Vanco/ Ceftriaxone day 3 ID on board Rhabdomyolysis-resolved Transaminitis- likely due to sepsis. now resolved Hypernatremia- resolved - D5W at 50cc/hr -neurocheck q1h -monitor Na -monitor urine output, creatinine -Free water - will d/c when tolerating po diet. swallow eval today h/o alcohol abuse - monitor for Alcohol withdrawal, -Ativan PRN with caution as patient [employer] depression Benzo overdose: - Monitor vitals - f/u ABG and lactic acid Metabolic lactic acidosis, most likely secondary to ARF BEVERLEY- IPROVING possible dehydation vs lactic acidosis vs sepsis IVF avoid nephrotoxic medciaitons h/o PE and DVT - not on anticoagulation FEN - elevated bili, AST, ALT, will monitor - NPO - NS, bicarb -D5W 50cc/hr Diet Consistency: Dysphagia Pureed Medication Administration: Crushed with applesauce Liquids: [place] Thick Prophylaxis - GI: not indicated - deconditioning: fall precaution - DVT ppx- hep sq Dispo:continue ICU care will monitor off vent for 24 hours. Visit type - Emergency Visit Emergency Visit: Yes ED Registration Date: 09/12/16 Care time: The patient presented to the Emergency Department on the above date and was hospitalized for further evaluation of their emergent condition. - New Patient This patient is new to me today: No - Critical Care Critical Care patient: Yes Total Critical Care Time (in minutes): 45 Critical Care Statement: The care of this patient involved high complexity decision making to prevent further life threatening deterioration of the patient 's condition and/or to evalute & treat vital organ system(s) failure or risk of failure.
--- NOTE | 2016-09-17 09:10 | PN ---
Progress Note (short form) - Note Progress Note: awake, alert remains on vent Vital Signs Period Temp Pulse Resp BP Sys/Guan Pulse Ox Last 24 Hr 99 F-99.7 F 71-80 14-19 104-126/72-89 96-100 cor-rrr lungs decreased bs at bases abd soft,nt ext no edema CBC, BMP 09/17/16 05:00 09/17/16 05:00 Microbiology Laboratory Tests 09/13/16 17:55 HIV 1&2 Antibody Screen Negative HIV P24 Antigen Negative 09/13/16 08:47 Blood - Peripheral Venous Blood Culture - Preliminary NO GROWTH OBTAINED AFTER 96 HOURS, INCUBATION TO CONTINUE FOR 1 DAYS. 09/13/16 08:50 Blood - Peripheral Venous Blood Culture - Preliminary NO GROWTH OBTAINED AFTER 96 HOURS, INCUBATION TO CONTINUE FOR 1 DAYS. 09/12/16 11:24 Blood - Peripheral Venous Blood Culture - Preliminary NO GROWTH OBTAINED AFTER 96 HOURS, INCUBATION TO CONTINUE FOR 1 DAYS. 09/12/16 10:30 Blood - Peripheral Venous Blood Culture - Preliminary NO GROWTH OBTAINED AFTER 96 HOURS, INCUBATION TO CONTINUE FOR 1 DAYS. 09/14/16 08:45 Sputum - Endotrachea Suction/Ventilator Gram Stain - Final 09/14/16 08:45 Sputum - Endotrachea Suction/Ventilator Sputum Culture - Final Mr S Aureus 09/13/16 21:50 Cerebral Spinal Fluid - Lumbar Puncture Gram Stain - Final 09/13/16 21:50 Cerebral Spinal Fluid - Lumbar Puncture CSF Culture - Final 09/13/16 21:50 Cerebral Spinal Fluid - Lumbar Puncture Cryptococcal Antigen - Preliminary 09/13/16 21:50 Cerebral Spinal Fluid - Lumbar Puncture Viral Culture - Preliminary 09/12/16 11:00 Urine - Urine Clean Catch Urine Culture - Final NO GROWTH OBTAINED Current Medications Chlorhexidine Gluconate (Hibiclens For Decolonization -) 1 applic TP HS MIS Last Admin: 09/16/16 21:28 Dose: 1 applic Heparin Sodium (Porcine) (Heparin -) 5,000 unit SQ TID MIS Last Admin: 09/17/16 06:21 Dose: 5,000 unit Vancomycin HCl 1,250 mg/ (Dextrose) 250 mls @ 250 mls/hr IVPB DAILY MIS Last Admin: 09/16/16 09:37 Dose: 250 mls/hr Dextrose (D5w -) 1,000 mls @ 50 mls/hr IV ASDIR MIS Last Admin: 09/16/16 21:27 Dose: 50 mls/hr Propofol (Diprivan -) 100 mls @ 2.449 mls/hr IVPUSH TITR MIS; 5 MCG/KG/MIN PRN Reason: Protocol Last Admin: 09/17/16 06:19 Dose: Not Given Ceftriaxone Sodium (Rocephin 2gm Ivpb (Pre-Docked)) 100 mls @ 200 mls/hr IVPB DAILY [facility] Last Admin: 09/16/16 09:35 Dose: 200 mls/hr Lactulose (Cephulac (Oral Use)) 20 gm NGT TID [facility] Last Admin: 09/17/16 06:19 Dose: 20 gm Mupirocin (Bactroban Ointment (For Decolonization) -) 1 applic NS BID [facility] Stop: 09/18/16 21:59 Last Admin: 09/16/16 21:28 Dose: 1 applic Pantoprazole Sodium (Protonix 40mg Ivpb (Pre-Docked)) 40 mg IVPB DAILY [facility] Last Admin: 09/16/16 09:35 Dose: 40 mg a/p respiratory failure probable aspiration csf studies negative MRSA in sputum continue vanco/rocephin day #4 antibiotics check vanco trough today colette-improving polysubstance use
[2016-09-17] MEDS: CEFTRIAXONE 100 ML IVPB SCH (10:06)
[2016-09-17] MEDS: PANTOPRAZOLE SODIUM 40 MG/100 ML PRE-DOCKED IVPB SCH (10:06)
[2016-09-17] MEDS: MUPIROCIN 2% TOPICAL OINTMENT FOR DECOLONIZATION NS SCH ×2 (10:06→21:55)
[2016-09-17] MEDS: VANCOMYCIN 1,250 MG in DEXTROSE 5%-WATER - 250 ML IVPB SCH (12:25)
--- NOTE | 2016-09-17 12:56 | PN ---
Progress Note, Physician - Current Medication List Current Medications: Active Medications Chlorhexidine Gluconate (Hibiclens For Decolonization -) 1 applic TP HS [facility] Last Admin: 09/16/16 21:28 Dose: 1 applic Heparin Sodium (Porcine) (Heparin -) 5,000 unit SQ TID [facility] Last Admin: 09/17/16 06:21 Dose: 5,000 unit Vancomycin HCl 1,250 mg/ (Dextrose) 250 mls @ 250 mls/hr IVPB DAILY [facility] Last Admin: 09/17/16 12:25 Dose: 250 mls/hr Dextrose (D5w -) 1,000 mls @ 50 mls/hr IV ASDIR [facility] Last Admin: 09/16/16 21:27 Dose: 50 mls/hr Propofol (Diprivan -) 100 mls @ 2.449 mls/hr IVPUSH TITR MIS; 5 MCG/KG/MIN PRN Reason: Protocol Last Admin: 09/17/16 06:19 Dose: Not Given Ceftriaxone Sodium (Rocephin 2gm Ivpb (Pre-Docked)) 100 mls @ 200 mls/hr IVPB DAILY [facility] Last Admin: 09/17/16 10:06 Dose: 200 mls/hr Folic Acid 1 mg/ Thiamine HCl 100 mg/ Multivitamins/Minerals 10 ml/ Sodium Chloride 1,000 mls @ 125 mls/hr IVPB ONCE ONE Stop: 09/17/16 20:50 Mupirocin (Bactroban Ointment (For Decolonization) -) 1 applic NS BID [facility] Stop: 09/18/16 21:59 Last Admin: 09/17/16 10:06 Dose: 1 applic Pantoprazole Sodium (Protonix 40mg Ivpb (Pre-Docked)) 40 mg IVPB DAILY [facility] Last Admin: 09/17/16 10:06 Dose: 40 mg - Objective Vital Signs: Vital Signs Temperature 99.2 F 09/17/16 10:00 Pulse Rate 82 09/17/16 12:00 Respiratory Rate 18 09/17/16 12:00 Blood Pressure 155/89 09/17/16 12:00 O2 Sat by Pulse Oximetry (%) 98 09/17/16 09:46 Constitutional: Yes: No Distress, Calm Eyes: Yes: Conjunctiva Clear, Ptosis HENT: Yes: Atraumatic, Normocephalic Neck: Yes: Supple, Trachea Midline Cardiovascular: Yes: Regular Rate and Rhythm, S1, S2 Respiratory: Yes: Regular, CTA Bilaterally Gastrointestinal: Yes: Normal Bowel Sounds, Soft Genitourinary: Yes: WNL Breast(s): Yes: WNL Musculoskeletal: Yes: WNL Extremities: Yes: WNL Edema: No Peripheral Pulses WNL: Yes Peripheral Pulses: Left Radial: 1+, Right Radial: 1+ Integumentary: Yes: WNL Labs: CBC, BMP 09/17/16 05:00 09/17/16 05:00 INR, PTT INR 1.03 (0.82-1.09) 09/12/16 10:30 - ....Imaging Cat Scan: Report Reviewed, Image Reviewed Problem List - Problems (1) Encephalopathy Code(s): G93.40 - ENCEPHALOPATHY, UNSPECIFIED (2) Alcohol withdrawal Code(s): F10.239 - ALCOHOL DEPENDENCE WITH WITHDRAWAL, UNSPECIFIED Qualifiers : Complication of substance-induced condition: uncomplicated Qualified Code(s): F10.230 - Alcohol dependence with withdrawal, uncomplicated Assessment/Plan 66 y/o M long time EtOH abuse with complicated medical hx including admits for EtOH withdraw, PE, SDH and DVT. He was most recently admitted to [facility] a week ago for EtOH withdraw and treated with Librium. He presented to the ED via EMS when he was found unresponsive at home. In the ED he was persistently febrile and altered. U-tox was positive for BDZ and EtOH, head CT was negative for an acute process, CXR showed no clear infiltrate. He was admitted to the floor and seen by Dr Dunn. He was cultured and Vanc/CTX was started for meningitis coverage. Later in the day he was found unresponsive and unable to protect his airway. He was intubated and transferred to the ICU. Today he is extubated and follows commands, no focal weakness. Ptosis mild bilaterally. Impression: metabolic encephalopathy, alcohol withdrawal. - metabolic encephalopathy possible secondary to sepsis or withdrawal. - low albumin- consider correct albuminemia. - LP shows no increased wbc and protein normal. Prelim gram stain - repeated CT Head shows no significant change. To do MRI brain without contrast whenever off vent and able to tolerate. - banana bag iv. daily for vitamins deficiency, possible Wernicke Korsakoff encephalopathy. - EEG to rule out seizures. - DVT prophylaxis lovenox sq. Continue supportive care Will follow Critical care time spent 35 min.
--- NOTE | 2016-09-17 13:14 | PN ---
Progress Note, Physician History of Present Illness: awake trying to speak to me while intubated sedation held mental status much improved - Current Medication List Current Medications: Active Medications Chlorhexidine Gluconate (Hibiclens For Decolonization -) [address] [facility] Last Admin: 09/16/16 21:28 Dose: 1 applic Heparin Sodium (Porcine) (Heparin -) 5,[address] [facility] Last Admin: 09/17/16 06:21 Dose: 5,000 unit Vancomycin HCl 1,250 mg/ (Dextrose) 250 mls @ 250 mls/hr IVPB DAILY [facility] Last Admin: 09/17/16 12:25 Dose: 250 mls/hr Dextrose (D5w -) 1,000 mls @ 50 mls/hr IV ASDIR [facility] Last Admin: 09/16/16 21:27 Dose: 50 mls/hr Propofol (Diprivan -) 100 mls @ 2.449 mls/hr IVPUSH TITR MIS; 5 MCG/KG/MIN PRN Reason: Protocol Last Admin: 09/17/16 06:19 Dose: Not Given Ceftriaxone Sodium (Rocephin 2gm Ivpb (Pre-Docked)) 100 mls @ 200 mls/hr IVPB DAILY [facility] Last Admin: 09/17/16 10:06 Dose: 200 mls/hr Folic Acid 1 mg/ Thiamine HCl 100 mg/ Multivitamins/Minerals 10 ml/ Sodium Chloride 1,000 mls @ 125 mls/hr IVPB ONCE ONE Stop: 09/17/16 21:29 Mupirocin (Bactroban Ointment (For Decolonization) -) [address] [facility] Stop: 09/18/16 21:59 Last Admin: 09/17/16 10:06 Dose: 1 applic Pantoprazole Sodium (Protonix 40mg Ivpb (Pre-Docked)) [address] [facility] Last Admin: 09/17/16 10:06 Dose: 40 mg - Objective Vital Signs: Vital Signs Temperature 99.2 F 09/17/16 10:00 Pulse Rate 82 09/17/16 12:00 Respiratory Rate 18 09/17/16 12:00 Blood Pressure 155/89 09/17/16 12:00 O2 Sat by Pulse Oximetry (%) 98 09/17/16 09:46 Constitutional: Yes: Well Nourished, Poor Hygeine Eyes: Yes: Conjunctiva Clear HENT: Yes: Atraumatic Cardiovascular: Yes: Regular Rate and Rhythm Respiratory: Yes: Mechanically Ventilated Gastrointestinal: Yes: WNL, Normal Bowel Sounds, Soft Edema: No Neurological: Yes: Other (trying to speak intubated and sedated) Labs: CBC, BMP 09/17/16 05:00 09/17/16 05:00 INR, PTT INR 1.03 (0.82-1.09) 09/12/16 10:30 - ....Imaging Chest X-ray: Report Reviewed, Image Reviewed Assessment/Plan 66 yo M admitted to telemetry for alcohol withdrawal and possible benzo overdose found on the floor of his appartment for undetermined length of time face and nostrals covered with dry vomit. patient lethargic on floors with respiratory distress sent to ICU for monitoring and was subsequently intubated. AMS possibly to Infection v metabolic encephalopathy 2/2 sepsis of unclear source possibly aspiration. improving form yesterday patient with likely combination of sepsis poor nutrition and Liver disease from alcohol abuse with benzodiazepine overdose which led to his condition he also had elevated ammonia levels which could be from liver disease secondary to alcohol abuse improved with lactulose PO thiamine and multivitamin Neuro consult appreciated LP so far WNL CPAP trial Wean to extubate continue ABx Vanco trough today ID consult appreciated Stop lactulose Hypernatremia-resolved Sodium 145 today continue D5W for now until able to tolerate PO Will get speech and swallow evaluation Alcohol abuse no active withdrawals at this time possible Benzo overdose: positive Utox symptoms Resolved may need counselling and psych consult once able to interact BEVERLEY- Resolved normalized BUN/Cr PE and DVT in 2012 requiring goal directed thrombolysis no on AC at this time will need this issue revisted once acute issues are dealt with FEN D5W @ 50ml/hr stop when tolerating fluids hypernatremia resolved NPO pending speech/swallow eval PPx: HSQ Protonix PT consult Dispo: patient accepted to ICU and nurses are aware of transfer.patient discussed with accepting Attending and resident
--- NOTE | 2016-09-17 13:25 | PN ---
Teaching Attending Note Name of Resident: Leodan Tai ATTENDING PHYSICIAN STATEMENT I saw and evaluated the patient. I reviewed the resident's note and discussed the case with the resident. I agree with the resident's findings and plan as documented. SUBJECTIVE: Patient seen and examined in the ICU. Remains intubated. Awake and able to follow commands. Tolerating CPAP trials. Intake & Output 09/14/16 09/15/16 09/16/16 09/17/16 23:59 23:59 23:59 23:59 Intake Total 345 1901 1846 694.8 Output Total 845 891 0933 300 Balance -555 1701 696 394.8 Weight 194 lb 3.636 oz 193 lb 5.526 oz 193 lb 5.526 oz 196 lb 3.274 oz Last Vital Signs Temp Pulse Resp BP Pulse Ox 99.2 F 82 18 155/89 98 09/17/16 10:00 09/17/16 12:00 09/17/16 12:00 09/17/16 12:00 09/17/16 09:46 Active Medications Chlorhexidine Gluconate (Hibiclens For Decolonization -) 1 applic TP HS [facility] Last Admin: 09/16/16 21:28 Dose: 1 applic Heparin Sodium (Porcine) (Heparin -) 5,000 unit SQ TID [facility] Last Admin: 09/17/16 06:21 Dose: 5,000 unit Vancomycin HCl 1,250 mg/ (Dextrose) 250 mls @ 250 mls/hr IVPB DAILY [facility] Last Admin: 09/17/16 12:25 Dose: 250 mls/hr Dextrose (D5w -) 1,000 mls @ 50 mls/hr IV ASDIR [facility] Last Admin: 09/16/16 21:27 Dose: 50 mls/hr Ceftriaxone Sodium (Rocephin 2gm Ivpb (Pre-Docked)) 100 mls @ 200 mls/hr IVPB DAILY [facility] Last Admin: 09/17/16 10:06 Dose: 200 mls/hr Folic Acid 1 mg/ Thiamine HCl 100 mg/ Multivitamins/Minerals 10 ml/ Sodium Chloride 1,000 mls @ 125 mls/hr IVPB ONCE ONE Stop: 09/17/16 21:29 Multivitamins/Minerals/Vitamin C (Tab-A-Vit -) 1 tab PO DAILY [facility] Mupirocin (Bactroban Ointment (For Decolonization) -) 1 applic NS BID [facility] Stop: 09/18/16 21:59 Last Admin: 09/17/16 10:06 Dose: 1 applic Pantoprazole Sodium (Protonix 40mg Ivpb (Pre-Docked)) 40 mg IVPB DAILY [facility] Last Admin: 09/17/16 10:06 Dose: 40 mg Thiamine HCl (Vitamin B1 -) 100 mg PO DAILY [facility] Gen: intubated, Awake and interactive Heart: RRR Lung: decreased breath sounds at the bases, with a few scattered rhonchi Abd: soft, nontender Ext: no edema Laboratory Results - last 24 hr 09/16/16 09/17/16 09/17/16 21:24 05:00 05:00 WBC 6.2 RBC 4.04 Hgb 11.6 L Hct 36.5 MCV 90.2 MCHC 31.8 L RDW 18.2 H Plt Count 135 D MPV 11.2 H Puncture Site ABG pH ABG pCO2 at Pt Temp ABG pO2 at Pt Temp ABG HCO3 ABG O2 Sat (Measured) ABG O2 Content ABG Base Excess Mario Alberto Test O2 Delivery Device Oxygen Flow Rate Vent Mode Vent Rate Mechanical Rate PEEP Pressure Support Vent Sodium 145 Potassium 3.5 Chloride 106 Carbon Dioxide 26 Anion Gap 13 BUN 15 D Creatinine 1.1 D Creat Clearance w eGFR > 60 POC Glucometer 128.62114 Random Glucose 108 H Calcium 8.4 L Phosphorus 2.4 L D Magnesium 2.0 Total Bilirubin 0.5 AST 24 ALT 26 Alkaline Phosphatase 46 Total Protein 6.7 Albumin 2.6 L Vancomycin Trough 09/17/16 09/17/16 07:10 09:30 WBC RBC Hgb Hct MCV MCHC RDW Plt Count MPV Puncture Site Right radial ABG pH 7.40 ABG pCO2 at Pt Temp 41.0 ABG pO2 at Pt Temp 161.0 H* ABG HCO3 24.6 ABG O2 Sat (Measured) 99.4 H ABG O2 Content 15.8 ABG Base Excess 0.3 Mario Alberto Test Positive O2 Delivery Device Vent Oxygen Flow Rate 35 Vent Mode A/c Vent Rate 14 Mechanical Rate Yes PEEP 5.0 Pressure Support Vent 450 Sodium Potassium Chloride Carbon Dioxide Anion Gap BUN Creatinine Creat Clearance w eGFR POC Glucometer Random Glucose Calcium Phosphorus Magnesium Total Bilirubin AST ALT Alkaline Phosphatase Total Protein Albumin Vancomycin Trough 9.904 A/P Altered Mental Status Acute Respiratory Failure Pneumonia Sepsis Acute Kidney Injury Lactic Acidosis r/o Alcohol Withdrawal Hepatic Encephalopathy Hypernatremia Rhabdomyolysis h/o PE - continue antibitoics per ID - lactulose - monitor ammonia level - monitor urine output, creatinine - Free water - hold sedation - Trial of extubation - DVT/GI prophylaxis Dr Galan [id number]"
[2016-09-17] MEDS ORDERED: FOLIC ACID INJECTION - 1 MG, THIAMINE HCL 100 MG, MULTIVIT INJECTION ADULT 10 ML in SOD... IVPB ONE ×2 (13:30→20:31)
[2016-09-17] MEDS ORDERED: PT OWN MED DRAWER 7, Y5N ONE (15:29)
[2016-09-17] MEDS: FOLIC ACID 1 MG TABLET (FP) PO SCH (15:32)
[2016-09-17] MEDS: THIAMINE HCL 100 MG TABLET (FP) PO SCH (15:32)
--- NOTE | 2016-09-17 16:55 | CONSULT ---
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) Cardiovascular: Yes: Deep Vein Thrombosis, HTN Pulmonary: Yes: Pulmonary Embolus Psych: Yes: Addictions Musculoskeletal: Yes: Other (lumbar disc herniation) - Past Surgical History Past Surgical History: Yes: Laminectomy - Smoking History Smoking history: Never smoked Have you smoked in the past 12 months: No Aproximately how many cigarettes per day: 0 - Alcohol/Substance Use Hx Alcohol Use: Yes (1 pint a day) History - Admission Reason For Visit: ALCOHOL WITHDRAWAL; AMS; RHABDOMYOLYSIS - Diagnostics X-ray: Report Reviewed - General Mental Status: Awake and Alert, Able to Follow Commands, Intermittently Confused Attention: Distractible Ability to Follow Directions: Fair Head/Neck Control: Good - Hearing Hearing: Normal Hearing Aide: No With Patient: Yes Speech Evaluation - Communication Primary Language: SWISS - Swallow Evaluation/Bedside Assessment Oral Secretions: Yes: WFL Tracheostomy Present: No Patient on Ventilator: No Dentition: Yes: Adequate Facial Symmetry at Rest: Symmetrical Facial Symmetry on Retraction: Symmetrical Facial Movement: Controlled Sensation: Normal Jaw Position: Closed at Rest Pucker Lips: Bilabial Closure Lingual Movement: Normal Lingual Speed of Movement: Normal Lingual Movement Characteristics: Normal Soft Palate Description: Normal Color Hard Palate Description: Normal Color Gag Reflex: Weak Bite Reflex: Absent Velopharyngeal Movement: Normal Laryngeal Elevation: WFL Laryngeal Movement: Able to Palpate Needs Assistance: Yes Rate of Intake: WFL Bolus Size: WFL Labial Seal: WFL Oral Prep Time: WFL A-P Transit: WFL Pocketing: None Timing of Swallow: Delayed Coughing/Throat Clear: Yes Recommendations - Dysphagia Impressions/Plan Swallowing Skills: Impaired Dysphagia Impressions: Mild Impairment Dysphagia Evaluation Summary: This 66 year old male presents with moderate signs of aspiration for thin liquids at bedside. Patient is able to tolerate purees and nectar thickened liquids without overt signs of aspiration. PEDIATRIC DENTAL ASSISTANT discussed with charge nurse [Aliyah] on unit. - Recommendations Diet Consistency: Dysphagia Pureed Medication Administration: Crushed with applesauce Liquids: [place] Thick
[2016-09-17] MEDS: MULTIVITAMINS (DAILY MVI) TABLET (FP) PO SCH (17:04)
--- NOTE | 2016-09-17 18:17 | PN ---
Teaching Attending Note Name of Resident: Cheryl Sosa ATTENDING PHYSICIAN STATEMENT I saw and evaluated the patient. I reviewed the resident's note and discussed the case with the resident. I agree with the resident's findings and plan as documented. SUBJECTIVE:currently asymptomatic. states he is feeling well and wants to go home. does not think he needs to be in the hospital at this time. denies CP, SOB ,fever, chills, N/V/C/D OBJECTIVE: Last Vital Signs Temp Pulse Resp BP Pulse Ox 98.6 F 84 18 132/85 98 09/17/16 17:53 09/17/16 17:53 09/17/16 17:53 09/17/16 17:53 09/17/16 09:46 General NAD A&O x2 (self and place), raspy voice CV S1 S2 RRR no murmur/rub/gallop Lungs CTA B/L no wheezing/rales/rhonchi Extremities moves all 4 extremities, slowly ASSESSMENT AND PLAN: 66yo M with PMH Continuous ETOH abuse, PE and subdural hematoma presented to the ER and was admitted for further evaluation of their emergent condition 1. Acute respiratory failure- intubated for airway protection. extubated today. tolerating 98% on nonrebreather. titrate down oxygen as tolerated. 2. Acute metabolic encephalopathy-less likely from hyperammonemia, possible false elevated. as corrected quickly even with medical management, his mental status remained poor even with correction of ammonia. concern for CVA, however CT imaging negative. was unable to obtain MRI due to vent but now extubated. LP done which is negative for infection. mental status seems mostly intact and able to move his extremities will need to monitor. hold sedation. cont to monitor. 3. Sepsis due to PNA-possible aspiration. SCx MRSA. on Vanco/ Ceftriaxone. ID on board 4. BEVERLEY-possible dehydation vs lactic acidosis. improving. cont to trend. good uop. avoid nephrotoxic medciaitons 5. Transaminitis- likely due to sepsis. now resolved 6. Rhabdomyolysis-resolved 7. Hypernatremia- now resolved. on D5w. will d/c when tolerating po diet. swallow eval today 8. DVT ppx- hep sq The care of this patient involved high complexity decision making to prevent further life threatening deterioration of the patient's condition and/or to evaluate & treat vital organ system(s) failure or risk of failure. critical care time 45 minutes
[2016-09-17] MEDS ORDERED: HALOPERIDOL LACTATE 5 MG/ML IM ONE (20:30)
--- NOTE | 2016-09-17 20:56 | HOSP ---
<Sj Cooper - Last Filed: 09/17/16 20:56> Physical Examination Vital Signs: Vital Signs Temperature 98.6 F 09/17/16 17:53 Pulse Rate 103 H 09/17/16 20:00 Respiratory Rate 18 09/17/16 20:02 Blood Pressure 135/96 09/17/16 20:00 O2 Sat by Pulse Oximetry (%) 98 09/17/16 20:02 Labs: CBC, BMP 09/17/16 05:00 09/17/16 05:00 <Yun Knight - Last Filed: 09/17/16 21:26> Subjective - Review of Symptoms Subjective: Nurse called because patient was agitated and tried to climb out of bed. Patient was admitted for acute alcohol intoxication and withdrawal. The patient was intubated before and extubated this morning. Patient UA was positive for benzos. Last Vital Signs Temp Pulse Resp BP Pulse Ox 98.6 F 103 H 18 135/96 98 09/17/16 17:53 09/17/16 20:00 09/17/16 20:02 09/17/16 20:00 09/17/16 20:02 Physical Examination Vital Signs: Vital Signs Temperature 98.6 F 09/17/16 17:53 Pulse Rate 103 H 09/17/16 20:00 Respiratory Rate 18 09/17/16 20:02 Blood Pressure 135/96 09/17/16 20:00 O2 Sat by Pulse Oximetry (%) 98 09/17/16 20:02 Findings/Remarks: GENERAL: + Calm. +Sleeping. Awake, alert, and fully oriented, in no acute distress HEENT: Atraumatic. PERRLA, EOMI. Moist mucosa. No JVD LUNGS: No distress, speaks full sentences, clear to auscultation bilaterally HEART: Regular rate and rhythm, normal S1 and S2, no murmurs, rubs or gallops, peripheral pulses normal and equal bilaterally. ABDOMEN: Soft, nontender, normoactive bowel sounds. No guarding, no rebound. No masses EXTREMITIES: Normal inspection, Normal range of motion, no edema. No clubbing or cyanosis. NEUROLOGICAL: Cranial nerves II through XII grossly intact. No focal sensorimotor deficits SKIN: Warm, Dry, normal turgor, no rashes or lesions noted. Labs: CBC, BMP 09/17/16 05:00 09/17/16 05:00 Hospitalist Encounter Assessment: Alcohol withdrawal s/p intubation and extubation -- Keep NPO -- Aspiration precaution -- Fall precaution -- Seizure precaution -- [facility] protocol -- Inquired pharmacy about Precedex drip however they do not have any at our facility. -- EKG was not showing any prolonged QT. -- Will give Haldol 2 mg IM one time -- If needed will consider giving more Haldol or Librium. -- Continue Banana bag IV -- Will continue monitoring. Documentation prepared by Yun Knight, acting as medical instrument technician for Allison Gustafson MD
[2016-09-17] MEDS: CHLORHEXIDINE GLUCONATE 4% CLEANSER FOR DECOLONIZATION TP SCH (21:55)
[2016-09-17] MEDS: DEXTROSE 5%-WATER - 1,000 ML IV SCH (21:56)
[2016-09-18] MEDS: HEPARIN NA (PORCINE) 5,000 UNITS/ML 1ML VIAL SQ SCH ×3 (06:18→21:38)
[2016-09-18 07:13] LABS: MCHC 32.1 g/dl (32.0-35.9); MEAN CELL VOLUME 90.2 fl (80-96); MEAN PLT VOLUME 11.7 fl (7.5-11.1); RDW 17.7 % (11.9-15.9)
[2016-09-18 07:26] LABS: INR 1.04 (0.82-1.09); PROTHROMBIN TIME (PATIENT) 11.4 SEC (9.98-11.88)
[2016-09-18 07:27] LABS: ACTIVATED PTT 20.5 SECONDS (26.9-34.4)
[2016-09-18 07:41] LABS: ALBUMIN 2.7 g/dl (3.4-5.0); ALK PHOS 50 U/L (45-117); ANION GAP 11 (8-16); BILIRUBIN,TOTAL 0.7 mg/dL (0.2-1.0); CALCIUM 8.4 mg/dL (8.5-10.1); CO2 26 mmol/L (21-32); GLUCOSE,RANDOM 95 mg/dL (74-106); MAGNESIUM 1.8 mg/dL (1.8-2.4); PHOSPHOROUS 1.8 mg/dL (2.5-4.9); SGOT/AST 26 U/L (15-37); SGPT/ALT 28 U/L (12-78); TOT PROT 6.5 g/dl (6.4-8.2)
--- NOTE | 2016-09-18 07:46 | PN ---
Progress Note (short form) - Note Progress Note: ID Today day 6 antibiotics He is alert able to converse and in NAD. He has not had fever for 72 hours. HE has MRSA in the sputum but was s afebrile prior to starting Vanco Selected Entries 09/18/16 06:00 Temperature 98.2 F Pulse Rate 78 Respiratory 16 Rate Blood Pressure 134/89 Lung Rhonchi Cor S1 S2 RR Abd soft nontender Microbiology 09/14/16 08:45 Sputum - Endotrachea Suction/Ventilator Gram Stain - Final 09/14/16 08:45 Sputum - Endotrachea Suction/Ventilator Sputum Culture - Final S Aureus 09/12/16 11:24 Blood - Peripheral Venous Blood Culture - Final NO GROWTH AFTER 5 DAYS INCUBATION 09/12/16 11:00 Urine - Urine Clean Catch Urine Culture - Final NO GROWTH OBTAINED 09/12/16 10:30 Blood - Peripheral Venous Blood Culture - Final NO GROWTH AFTER 5 DAYS INCUBATION 09/13/16 08:50 Blood - Peripheral Venous Blood Culture - Preliminary NO GROWTH OBTAINED AFTER 96 HOURS, INCUBATION TO CONTINUE FOR 1 DAYS. 09/13/16 08:47 Blood - Peripheral Venous Blood Culture - Preliminary NO GROWTH OBTAINED AFTER 96 HOURS, INCUBATION TO CONTINUE FOR 1 DAYS. Laboratory Tests 09/13/16 09/17/16 09/17/16 17:55 05:00 05:00 WBC Hgb Hct Plt Count 135 D BUN 15 D Creatinine 1.1 D HIV 1&2 Antibody Screen Negative HIV P24 Antigen Negative 09/18/16 05:27 WBC 8.1 D Hgb 11.2 L Hct 34.8 L Plt Count Pending BUN Creatinine HIV 1&2 Antibody Screen HIV P24 Antigen Assessment At this point unable to document infection. He had high fever and respiratory failure in the setting of polysubstance abuse with overdose at time of admission. He could have aspirated though at this point his xray with minimal to no findings if infiltrate. He is be doing well Advise Recommend stop all antibiotics suspect colonized MRSA Contact isolation Will see him 1 more day Shaun MULLIGAN Problem List - Problems (1) Altered mental status Code(s): R41.82 - ALTERED MENTAL STATUS, UNSPECIFIED Qualifiers: Qualified Code(s): R41.82 - Altered mental status, unspecified (2) Sepsis Code(s): A41.9 - SEPSIS, UNSPECIFIED ORGANISM
[2016-09-18 07:51] LABS: WHITE BLOOD COUNT 8.1 K/mm3 (4.0-10.0)
[2016-09-18] MEDS ORDERED: NAPH,MB-DB/K PH,MBDB POWDER PACKET PO ONE (09:00)
[2016-09-18] MEDS ORDERED: POTASSIUM CHLORIDE TABS 20 MEQ TABLET.ER (FP) PO ONE (09:00)
[2016-09-18 09:01] LABS: MCH 29.6 pg (25.7-33.7); MCHC 32.8 g/dl (32.0-35.9); MEAN CELL VOLUME 90.3 fl (80-96); MEAN PLT VOLUME 10.1 fl (7.5-11.1); PLATELET COUNT 133 K/MM3 (134-434); RDW 17.6 % (11.9-15.9); WHITE BLOOD COUNT 6.4 K/mm3 (4.0-10.0)
[2016-09-18] MEDS: THIAMINE HCL 100 MG TABLET (FP) PO SCH (09:34)
[2016-09-18] MEDS: MUPIROCIN 2% TOPICAL OINTMENT FOR DECOLONIZATION NS SCH (09:34)
[2016-09-18] MEDS: MULTIVITAMINS (DAILY MVI) TABLET (FP) PO SCH (09:34)
[2016-09-18] MEDS: PANTOPRAZOLE SODIUM 40 MG/100 ML PRE-DOCKED IVPB SCH (09:34)
[2016-09-18] MEDS: FOLIC ACID 1 MG TABLET (FP) PO SCH (09:34)
[2016-09-18] MEDS ORDERED: HALOPERIDOL LACTATE 5 MG/ML IM ONE (10:49)
--- NOTE | 2016-09-18 11:17 | PN ---
Progress Note, Physician History of Present Illness: awake extubated yesterday no issues overnight - Current Medication List Current Medications: Active Medications Chlorhexidine Gluconate (Hibiclens For Decolonization -) 1 applic TP HS [facility] Last Admin: 09/17/16 21:55 Dose: 1 applic Folic Acid (Folic Acid -) 1 mg PO DAILY [facility] Last Admin: 09/18/16 09:34 Dose: 1 mg Haloperidol (Haldol Injection (Fast Acting) -) 2 mg IM ONCE ONE Stop: 09/18/16 10:50 Last Admin: 09/18/16 11:12 Dose: 2 mg Heparin Sodium (Porcine) (Heparin -) 5,000 unit SQ TID [facility] Last Admin: 09/18/16 06:18 Dose: 5,000 unit Magnesium Oxide (Mag-Ox -) 400 mg PO ONCE ONE Stop: 09/18/16 10:57 Multivitamins/Minerals/Vitamin C (Tab-A-Vit -) 1 tab PO DAILY [facility] Last Admin: 09/18/16 09:34 Dose: 1 tab Mupirocin (Bactroban Ointment (For Decolonization) -) 1 applic NS BID [facility] Stop: 09/18/16 21:59 Last Admin: 09/18/16 09:34 Dose: 1 applic Pantoprazole Sodium (Protonix 40mg Ivpb (Pre-Docked)) 40 mg IVPB DAILY [facility] Last Admin: 09/18/16 09:34 Dose: 40 mg Thiamine HCl (Vitamin B1 -) 100 mg PO DAILY [facility] Last Admin: 09/18/16 09:34 Dose: 100 mg - Objective Vital Signs: Vital Signs Temperature 98.8 F 09/18/16 10:00 Pulse Rate 91 H 09/18/16 10:00 Respiratory Rate 18 09/18/16 10:00 Blood Pressure 130/84 09/18/16 08:00 O2 Sat by Pulse Oximetry (%) 98 09/18/16 09:00 Constitutional: Yes: Well Nourished, Poor Hygeine Eyes: Yes: Conjunctiva Clear HENT: Yes: Atraumatic Cardiovascular: Yes: Regular Rate and Rhythm Respiratory: Yes: CTAB Gastrointestinal: Yes: WNL, Normal Bowel Sounds, Soft Edema: No Neurological: Yes: Alert awake answers questions able to speak. Labs: CBC, BMP 09/18/16 08:56 12/28/16 05:27 INR, PTT INR 1.04 (0.82-1.09) 09/18/16 05:27 Assessment/Plan 66 yo M admitted to telemetry for alcohol withdrawal and possible benzo overdose found on the floor of his appartment for undetermined length of time face and nostrals covered with dry vomit. patient lethargic on floors with respiratory distress sent to ICU for monitoring and was subsequently intubated. AMS possibly to Infection v metabolic encephalopathy 2/2 sepsis of unclear source possibly aspiration. improving form yesterday patient with likely combination of sepsis poor nutrition and Liver disease from alcohol abuse with benzodiazepine overdose which led to his condition he also had elevated ammonia levels which could be from liver disease secondary to alcohol abuse improved with lactulose PO thiamine and multivitamin Neuro consult appreciated LP so far WNL CPAP trial Wean to extubate ID consult appreciated-will stop ABx since likely MRSA colonization and patient clinically and radiographically doing well Hypernatremia-resolved Sodium 144 today stop D5W speech and swallow evaluation-dyspagia diet Alcohol abuse no active withdrawals at this time possible Benzo overdose: positive Utox symptoms Resolved may need counselling and psych consult once able to interact BEVERLEY- Resolved normalized BUN/Cr PE and DVT in 2013 requiring goal directed thrombolysis no on AC at this time will need this issue revisted once acute issues are dealt with FEN Stop IVF hypernatremia resolved patient is now hypokalemia hypomagnesemic and hypophosphatemic will replete Dysphagia diet PPx: HSQ Protonix PT consult Transfer to floors
--- NOTE | 2016-09-18 11:23 | PN ---
Physical Exam: SUBJECTIVE: Patient seen and examined Patient seen and examined at bed side in ICU. patient AAOx2 more allert and coversating more than yesterday. still confused and confabulating long intricate stories of the reasons that made him get sick. patient denies any chest pain, N/V/D/C. patient stable to transfer to medical floor. OBJECTIVE: Vital Signs Period Temp Pulse Resp BP Sys/Guan Pulse Ox Last 24 Hr 98 F-98.8 F 77-103 15-24 101-155/73-96 98-98 GENERAL: AAOx2 in no acute distress, confused, more alert and more conversation than yesterday HEAD: Normal with no signs of trauma. EYES: PERRL, extraocular movements intact, sclera anicteric, conjunctiva clear. No ptosis. ENT: Ears normal, nares patent, oropharynx clear without exudates, dry mucous membranes. membranes. Intubated NECK: Trachea midline, full range of motion, supple. LUNGS: decreased breath sounds at the bases, with a few scattered rhonchi HEART: Regular rate and rhythm, S1, S2 without murmur, rub or gallop. ABDOMEN: Soft, nontender, nondistended, normoactive bowel sounds, no guarding, no rebound, no hepatosplenomegaly, no masses. EXTREMITIES: 2+ pulses, warm, well-perfused, no edema. +3/5 strength better than yesterday BL upper ext, +2/5 strength Bl lower ext. able to follow directions, sensation intact NEUROLOGICAL: Cranial nerves II through XII grossly intact. Normal speech, gait not observed. PSYCH: Normal mood, normal affect. SKIN: Warm, dry, normal turgor, no rashes or lesions noted Laboratory Results - last 24 hr 09/18/16 09/18/16 09/18/16 05:27 05:27 05:27 WBC 8.1 D RBC 3.86 L Hgb 11.2 L Hct 34.8 L MCV 90.2 MCHC 32.1 RDW 17.7 H Plt Count MPV 11.7 H INR 1.04 PTT (Actin FS) 20.5 L D Sodium 144 Potassium 3.1 L Chloride 107 Carbon Dioxide 26 Anion Gap 11 BUN 12 Creatinine 1.0 Creat Clearance w eGFR > 60 Random Glucose 95 Calcium 8.4 L Phosphorus 1.8 L D Magnesium 1.8 Total Bilirubin 0.7 D AST 26 ALT 28 Alkaline Phosphatase 50 Total Protein 6.5 Albumin 2.7 L 09/18/16 08:56 WBC 6.4 RBC 3.71 L Hgb 11.0 L Hct 33.5 L MCV 90.3 MCHC 32.8 RDW 17.6 H Plt Count 133 L MPV 10.1 D INR PTT (Actin FS) Sodium Potassium Chloride Carbon Dioxide Anion Gap BUN Creatinine Creat Clearance w eGFR Random Glucose Calcium Phosphorus Magnesium Total Bilirubin AST ALT Alkaline Phosphatase Total Protein Albumin Active Medications Generic Name Dose Route Start Last Admin Trade Name Freq PRN Reason Stop Dose Admin Chlorhexidine Gluconate 1 applic 09/13/16 22:00 09/17/16 21:55 Hibiclens For Decolonization - TP 1 applic HS MIS Administration Folic Acid 1 mg 09/17/16 13:30 09/18/16 09:34 Folic Acid - PO 1 mg DAILY MIS Administration Haloperidol 2 mg 09/18/16 10:49 Haldol Injection (Fast Acting) - IM 09/18/16 10:50 ONCE ONE Heparin Sodium (Porcine) 5,000 unit 09/13/16 22:00 09/18/16 06:18 Heparin - SQ 5,000 unit TID MIS Administration Magnesium Oxide 400 mg 09/18/16 10:56 Mag-Ox - PO 09/18/16 10:57 ONCE ONE Multivitamins/Minerals/Vitamin C 1 tab 09/17/16 13:15 09/18/16 09:34 Tab-A-Vit - PO 1 tab DAILY MIS Administration Mupirocin 1 applic 09/13/16 22:00 09/18/16 09:34 Bactroban Ointment (For Decolonization) - NS 09/18/16 21:59 1 applic BID MIS Administration Pantoprazole Sodium 40 mg 09/14/16 10:00 09/18/16 09:34 Protonix 40mg Ivpb (Pre-Docked) IVPB 40 mg DAILY MIS Administration Thiamine HCl 100 mg 09/17/16 13:15 09/18/16 09:34 Vitamin B1 - PO 100 mg DAILY MIS Administration ASSESSMENT/PLAN: 66 yo M admitted to telemetry for alcohol withdrawal and possible benzo overdose found on the floor of his appartment for undetermined length of time face and nostrils covered with dry vomitus, patient presented to ED obtunded. Found to have elevated lactic acid pH of 7.23, trending up lactic acid, BUN/Cr 36/1.6, Sodium 151, negative troponins, CXR negative for pulmonary dz, Ct showed moderate atrophy and ventricular dilation (consistent with prior CT on ) without interval change or acute intracranial pathology. Urine tox positive for alcohol and benzos. AMS-Acute metabolic encephalopathy-mental status improving, moving limbs is improving. less likely from hyperammonemia, possible false elevated. possibly 2/ 2 sepsis, metabolic encephalopathy 2/2 sepsis of unclear source possibly aspiration. improving form yesterday - hold sedation. cont to monitor. - Neuro check q1hr -neurology consult- stroke less likely. repeat CT negative - lumbar puncture wNL. -Oxygen suplement -Antibiotics stop per ID attending Acute respiratory failure-Resolved s/p intubated for airway protection. extubated today. tolerating 98% on nonrebreather. -titrate down oxygen as tolerated. Sepsis due to PNA-possible aspiration. SCx MRSA. Vanco/ Ceftriaxone day 3 ID on board Rhabdomyolysis-resolved- laying on floor for unknown period of time Transaminitis- likely due to sepsis. 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 Visit type - Emergency Visit Emergency Visit: Yes ED Registration Date: 09/12/16 Care time: The patient presented to the Emergency Department on the above date and was hospitalized for further evaluation of their emergent condition. - New Patient This patient is new to me today: No - Critical Care Critical Care patient: Yes Total Critical Care Time (in minutes): 45 Critical Care Statement: The care of this patient involved high complexity decision making to prevent further life threatening deterioration of the patient 's condition and/or to evalute & treat vital organ system(s) failure or risk of failure.
--- NOTE | 2016-09-18 11:56 | PN ---
Teaching Attending Note Name of Resident: Cheryl Sosa ATTENDING PHYSICIAN STATEMENT I saw and evaluated the patient. I reviewed the resident's note and discussed the case with the resident. I agree with the resident's findings and plan as documented. SUBJECTIVE:more alert today, coherent, when asked what happened prior to arrival goes into elaborate story as how [place] for several days. he states that he is aware he is in the hospital for us to help "fix what ever is wrong". OBJECTIVE: Last Vital Signs Temp Pulse Resp BP Pulse Ox 98.8 F 80 18 130/84 99 09/18/16 10:00 09/18/16 11:32 09/18/16 10:00 09/18/16 08:00 09/18/16 11:32 General NAD A&O x3, CV S1 S2 RRR no murmur/rub/gallop Lungs Coarse breath sound diffusely. crackles at bases no wheezing Extremities B/L UE 5/5. B/L LE 2/5, gait deferred ASSESSMENT AND PLAN: 66yo M with PMH Continuous ETOH abuse, PE and subdural hematoma presented to the ER and was admitted for further evaluation of their emergent condition 1. Acute respiratory failure- intubated for airway protection. extubated yesterday saturating well on NC. cont to titrate down oxygen requirements. 2. Acute metabolic encephalopathy- unknown etiology. doubt is from hyperammonemia or BZD (+utox on admission) as pt was given valium in the ED and utox was collected afterwards. ETOH negative. possible wernickes korsakoff. was noted to be agitated in the evening which resolved with haldol. would not start libirum taper at this time as showing no signs of withdrawal. cont haldol prn agitation. consider starting seroquel at bedtime for possible . will consider obtaining psych eval. 3. Sepsis due to PNA-possible aspiration. SCx MRSA. completed 6 day course of abx. afebrile no leukocytosis. agree with ID on holding abx at this time and monitoring. possible colonization. 4. BEVERLEY-possible dehydation vs lactic acidosis. resolved. avoid nephrotoxic medciaitons 5. Transaminitis- likely due to sepsis. now resolved 6. Rhabdomyolysis-resolved 7. Hypernatremia- now resolved. starting to develop crackles on exam. will d/c IVF. 8. hypokalemia- Kcl 40meq po 9. hypophosphatemia- neutraphos 10. Malnutrition- dietary consult. ensure supplements 11. DVT ppx- hep sq 12. stable for transfer to medical floors. The care of this patient involved high complexity decision making to prevent further life threatening deterioration of the patient's condition and/or to evaluate & treat vital organ system(s) failure or risk of failure. critical care time 40 minutes
[2016-09-18] MEDS: MAGNESIUM OXIDE 400 MG TABLET (FP) PO ONE ×2 (13:06→13:15)
[2016-09-18] MEDS ORDERED: MAGNESIUM SULF 50% (8.12 MEQ/2 ML-1 GM VIAL) IVPB ONE (13:14)
[2016-09-18] MEDS ORDERED: FOLIC ACID INJECTION - 1 MG, THIAMINE HCL 100 MG, MULTIVIT INJECTION ADULT 10 ML in SOD... IVPB ONE (14:30)
--- NOTE | 2016-09-18 14:58 | PN ---
Progress Note, Physician Chief Complaint: altered mental status, drowsiness History of Present Illness: 66 y/o M long time EtOH abuse with complicated medical hx including admits for EtOH withdraw, PE, SDH and DVT. He was most recently admitted to [facility] a week ago for EtOH withdraw and treated with Librium. He presented to the ED via EMS when he was found unresponsive at home. In the ED he was persistently febrile and altered. U-tox was positive for BDZ and EtOH, head CT was negative for an acute process, CXR showed no clear infiltrate. He was admitted to the floor and seen by Dr Dunn. He was cultured and Vanc/CTX was started for meningitis coverage. Later in the day he was found unresponsive and unable to protect his airway. He was intubated and transferred to the ICU. - Current Medication List Current Medications: Active Medications Chlorhexidine Gluconate (Hibiclens For Decolonization -) 1 applic TP HS [facility] Last Admin: 09/17/16 21:55 Dose: 1 applic Folic Acid (Folic Acid -) 1 mg PO DAILY [facility] Last Admin: 09/18/16 09:34 Dose: 1 mg Heparin Sodium (Porcine) (Heparin -) 5,000 unit SQ TID [facility] Last Admin: 09/18/16 13:06 Dose: 5,000 unit Folic Acid 1 mg/ Thiamine HCl 100 mg/ Multivitamins/Minerals 10 ml/ Sodium Chloride 1,000 mls @ 125 mls/hr IVPB ONCE ONE Stop: 09/18/16 22:29 Multivitamins/Minerals/Vitamin C (Tab-A-Vit -) 1 tab PO DAILY [facility] Last Admin: 09/18/16 09:34 Dose: 1 tab Mupirocin (Bactroban Ointment (For Decolonization) -) 1 applic NS BID [facility] Stop: 09/18/16 21:59 Last Admin: 09/18/16 09:34 Dose: 1 applic Pantoprazole Sodium (Protonix 40mg Ivpb (Pre-Docked)) 40 mg IVPB DAILY [facility] Last Admin: 09/18/16 09:34 Dose: 40 mg Thiamine HCl (Vitamin B1 -) 100 mg PO DAILY [facility] Last Admin: 09/18/16 09:34 Dose: 100 mg - Objective Vital Signs: Vital Signs Temperature 98.4 F 09/18/16 14:00 Pulse Rate 75 09/18/16 14:00 Respiratory Rate 18 09/18/16 14:00 Blood Pressure 113/73 09/18/16 14:00 O2 Sat by Pulse Oximetry (%) 99 09/18/16 12:19 Constitutional: Yes: Well Nourished, No Distress Eyes: Yes: Conjunctiva Clear, EOM Intact, PERRL, Ptosis, Other (ophtalmoplegia) HENT: Yes: Atraumatic, Normocephalic Neck: Yes: Supple, Trachea Midline Cardiovascular: Yes: Regular Rate and Rhythm, S1, S2 Respiratory: Yes: Regular, CTA Bilaterally Gastrointestinal: Yes: Normal Bowel Sounds, Soft Genitourinary: Yes: WNL Breast(s): Yes: WNL Musculoskeletal: Yes: WNL Edema: No Peripheral Pulses WNL: Yes Peripheral Pulses: Left Radial: 1+, Right Radial: 1+ Neurological: Yes: Alert, Oriented, Babinski negative, Confusion, Cran Nerves II -XII Intact, Dysarthria, Lethargy, Paresthesia, Unsteady Gait, Other (ptosis and ophtalmoplegia, drowsy but arousable, not following commands.) ...Motor Strength: WNL Labs: CBC, BMP 09/18/16 08:56 09/18/16 05:27 INR, PTT INR 1.04 (0.82-1.09) 09/18/16 05:27 Problem List - Problems (1) Encephalopathy Code(s): G93.40 - ENCEPHALOPATHY, UNSPECIFIED (2) Alcohol withdrawal Code(s): F10.239 - ALCOHOL DEPENDENCE WITH WITHDRAWAL, UNSPECIFIED Qualifiers : Qualified Code(s): F10.230 - Alcohol dependence with withdrawal, uncomplicated Assessment/Plan 66 y/o M long time EtOH abuse with complicated medical hx including admits for EtOH withdraw, PE, SDH and DVT. He was most recently admitted to [facility] a week ago for EtOH withdraw and treated with Librium. He presented to the ED via EMS when he was found unresponsive at home. In the ED he was persistently febrile and altered. U-tox was positive for BDZ and EtOH, head CT was negative for an acute process, CXR showed no clear infiltrate. He was admitted to the floor and seen by Dr Dunn. He was cultured and Vanc/CTX was started for meningitis coverage. Later in the day he was found unresponsive and unable to protect his airway. He was intubated and transferred to the ICU. He is extubated , drowsy but arousable. No focal weakness. Ptosis mild bilaterally. Impression: metabolic encephalopathy, alcohol withdrawal, Wernicke Korsakoff encephalopathy. - metabolic encephalopathy possible secondary to sepsis or withdrawal. - low albumin- consider correct albuminemia. - To do MRI brain without contrast whenever off vent and able to tolerate. - banana bag iv. daily for vitamins deficiency, possible Wernicke Korsakoff encephalopathy. - EEG to rule out seizures. - DVT prophylaxis lovenox sq. - PT/OT. Continue supportive care Will follow Critical care time spent 35 min.
--- NOTE | 2016-09-18 15:02 | PN ---
Teaching Attending Note Name of Resident: Leodan Tai ATTENDING PHYSICIAN STATEMENT I saw and evaluated the patient. I reviewed the resident's note and discussed the case with the resident. I agree with the resident's findings and plan as documented. SUBJECTIVE: Pt seen and examined in the ICU. Remains extubated, denies shortness of breath or chest pain. No fevers recorded. OBJECTIVE: Last Vital Signs Temp Pulse Resp BP Pulse Ox 98.4 F 75 18 113/73 99 09/18/16 14:00 09/18/16 14:00 09/18/16 14:00 09/18/16 14:00 09/18/16 12:19 Intake & Output 09/15/16 09/16/16 09/17/16 09/18/16 23:59 23:59 23:59 23:59 Intake Total 1901 1846 1744.8 2690 Output Total 200 1150 1000 1200 Balance 1701 696 744.8 1490 Weight 193 lb 5.526 oz 193 lb 5.526 oz 196 lb 3.274 oz 192 lb 0.362 oz Gen: NAD at rest Heart: RRR Lung: decreased breath sounds at the bases Abd: soft, nontender Ext: no edema CBC, BMP 09/18/16 08:56 09/18/16 05:27 Active Medications Chlorhexidine Gluconate (Hibiclens For Decolonization -) 1 applic TP HS [facility] Last Admin: 09/17/16 21:55 Dose: 1 applic Folic Acid (Folic Acid -) 1 mg PO DAILY [facility] Last Admin: 09/18/16 09:34 Dose: 1 mg Heparin Sodium (Porcine) (Heparin -) 5,000 unit SQ TID [facility] Last Admin: 09/18/16 13:06 Dose: 5,000 unit Folic Acid 1 mg/ Thiamine HCl 100 mg/ Multivitamins/Minerals 10 ml/ Sodium Chloride 1,000 mls @ 125 mls/hr IVPB ONCE ONE Stop: 09/18/16 22:29 Multivitamins/Minerals/Vitamin C (Tab-A-Vit -) 1 tab PO DAILY [facility] Last Admin: 09/18/16 09:34 Dose: 1 tab Mupirocin (Bactroban Ointment (For Decolonization) -) 1 applic NS BID [facility] Stop: 09/18/16 21:59 Last Admin: 09/18/16 09:34 Dose: 1 applic Pantoprazole Sodium (Protonix 40mg Ivpb (Pre-Docked)) 40 mg IVPB DAILY [facility] Last Admin: 09/18/16 09:34 Dose: 40 mg Thiamine HCl (Vitamin B1 -) 100 mg PO DAILY [facility] Last Admin: 09/18/16 09:34 Dose: 100 mg ASSESSMENT AND PLAN: Altered Mental Status resolved s/p Acute Respiratory Failure Pneumonia Sepsis improved Acute Kidney Injury resolved Lactic Acidosis resolved r/o Alcohol Withdrawal Hepatic Encephalopathy Hypernatremia Rhabdomyolysis h/o PE - antibitoics completed - monitor urine output, creatinine - replete lytes - aspiration precautions - DVT prophylaxis - can monitor on floor
[2016-09-18] MEDS: HALOPERIDOL LACTATE 5 MG/ML IM PRN (17:48)
[2016-09-18] MEDS ORDERED: MUPIROCIN 2% TOPICAL OINTMENT FOR DECOLONIZATION NS SCH (22:00)
[2016-09-18] MEDS ORDERED: CHLORHEXIDINE GLUCONATE 4% CLEANSER FOR DECOLONIZATION TP SCH (22:00)
[2016-09-19 00:06] LABS: LYME IGG WB INTERP. Negative (.); P18 AB Absent (.); P23 AB Absent (.); P28 AB Absent (.); P30 AB Absent (.); P39 AB Absent (.); P41 AB Absent (.); P45 AB Absent (.); P58 AB Absent (.); P66 AB Absent (.); P93 AB Absent (.)
[2016-09-19] MEDS: HEPARIN NA (PORCINE) 5,000 UNITS/ML 1ML VIAL SQ SCH ×3 (06:46→22:57)
[2016-09-19 09:04] LABS: BASOPHIL 0.7 % (0-2.0); EOSINOPHIL 1.8 % (0-4.5); MCH 28.9 pg (25.7-33.7); MCHC 31.9 g/dl (32.0-35.9); MEAN CELL VOLUME 90.6 fl (80-96); MEAN PLT VOLUME 10.2 fl (7.5-11.1); NEUTROPHILS 69.5 % (42.8-82.8); PLATELET COUNT 175 K/MM3 (134-434); WHITE BLOOD COUNT 6.2 K/mm3 (4.0-10.0)
[2016-09-19] MEDS: THIAMINE HCL 100 MG TABLET (FP) PO SCH (09:15)
[2016-09-19] MEDS: FOLIC ACID 1 MG TABLET (FP) PO SCH (09:15)
[2016-09-19] MEDS: MULTIVITAMINS (DAILY MVI) TABLET (FP) PO SCH (09:15)
[2016-09-19 09:25] LABS: ALBUMIN 2.7 g/dl (3.4-5.0); ALK PHOS 42 U/L (45-117); ANION GAP 7 (8-16); BILIRUBIN,TOTAL 0.6 mg/dL (0.2-1.0); CALCIUM 8.6 mg/dL (8.5-10.1); CO2 30 mmol/L (21-32); GLUCOSE,RANDOM 87 mg/dL (74-106); MAGNESIUM 2.1 mg/dL (1.8-2.4); PHOSPHOROUS 2.4 mg/dL (2.5-4.9); SGOT/AST 26 U/L (15-37); SGPT/ALT 29 U/L (12-78); TOT PROT 6.4 g/dl (6.4-8.2)
[2016-09-19] MEDS ORDERED: PANTOPRAZOLE SODIUM 40 MG/100 ML PRE-DOCKED IVPB SCH (10:00)
--- NOTE | 2016-09-19 10:05 | PN ---
Progress Note (short form) - Note Progress Note: PULMONARY Denies shortness of breath, cough. Occasional wheeze. No fevers or chills. Last Vital Signs Temp Pulse Resp BP Pulse Ox 98.9 F 84 20 147/85 98 09/19/16 06:00 09/19/16 06:00 09/19/16 06:00 09/19/16 06:00 09/18/16 20:00 Gen: NAD at rest Heart: RRR Lung: decreased breath sounds at the bases Abd: soft, nontender Ext: no edema CBC, BMP 09/19/16 08:25 09/19/16 08:25 Active Medications Folic Acid (Folic Acid -) 1 mg PO DAILY [facility] Last Admin: 09/19/16 09:15 Dose: 1 mg Haloperidol (Haldol Injection (Fast Acting) -) 2 mg IM Q4H PRN PRN Reason: ANXIETY Last Admin: 09/18/16 17:48 Dose: 2 mg Heparin Sodium (Porcine) (Heparin -) 5,000 unit SQ TID [facility] Last Admin: 09/19/16 06:46 Dose: 5,000 unit Multivitamins/Minerals/Vitamin C (Tab-A-Vit -) 1 tab PO DAILY [facility] Last Admin: 09/19/16 09:15 Dose: 1 tab Pantoprazole Sodium (Protonix 40mg Ivpb (Pre-Docked)) 40 mg IVPB DAILY [facility] Last Admin: 09/19/16 09:14 Dose: 40 mg Thiamine HCl (Vitamin B1 -) 100 mg PO DAILY [facility] Last Admin: 09/19/16 09:15 Dose: 100 mg A/P Altered Mental Status resolved s/p Acute Respiratory Failure Pneumonia Sepsis improved Acute Kidney Injury resolved Lactic Acidosis resolved r/o Alcohol Withdrawal Hepatic Encephalopathy Hypernatremia resolving Rhabdomyolysis h/o PE - antibitoics completed - monitor urine output, creatinine - replete lytes - aspiration precautions - DVT prophylaxis - OOB to chair, PT
--- NOTE | 2016-09-19 17:31 | PN ---
Teaching Attending Note Name of Resident: Cheryl Sosa ATTENDING PHYSICIAN STATEMENT I saw and evaluated the patient. I reviewed the resident's note and discussed the case with the resident. I agree with the resident's findings and plan as documented. SUBJECTIVE:more lethargic today, states he did not sleep well and is just tired. refuses to participate in physical exam or questioning. states he does not want to do this everyday OBJECTIVE: Last Vital Signs Temp Pulse Resp BP Pulse Ox 98.2 F 64 20 138/76 98 09/19/16 16:57 09/19/16 16:57 09/19/16 16:57 09/19/16 16:57 09/19/16 09:00 General more lethargic. responsive to verbal/tactile stimuli, refuses to participate in exam ASSESSMENT AND PLAN: 66yo M with PMH Continuous ETOH abuse, PE and subdural hematoma presented to the ER and was admitted for further evaluation of their emergent condition 1. Acute respiratory failure- intubated for airway protection. now extubated 2. Acute metabolic encephalopathy- possible wernickes korsakoff. as per RN was more alert this morning. not given any sedating drugs. obtain brain MRI and EEG. will consult psych for competency as in this state do not think pt can be d /c home with mental status continuing to be poor. 3. Sepsis due to PNA-possible aspiration. SCx MRSA. remains afebrile off abx. cont to monitor. 4. hypokalemia- Kcl 40meq po 5. hypophosphatemia- neutraphos 6. Malnutrition- dietary consult. ensure supplements 7. DVT ppx- hep sq 8. awaiting PT eval. will likely require placement. d/c planning
[2016-09-19] MEDS: NAPH,MB-DB/K PH,MBDB POWDER PACKET PO ONE ×2 (17:49→22:57)
[2016-09-19] MEDS: FOLIC ACID INJECTION - 1 MG, THIAMINE HCL 100 MG, MULTIVIT INJECTION ADULT 10 ML in SOD... IVPB SCH ×2 (17:49→20:52)
[2016-09-19] MEDS: POTASSIUM CHLORIDE 40 MEQ/30 ML UNIT DOSE CUP PO ONE ×2 (17:49→22:57)
[2016-09-19] MEDS: HALOPERIDOL LACTATE 5 MG/ML IM PRN (17:50)
--- NOTE | 2016-09-19 18:32 | PN ---
Physical Exam: SUBJECTIVE: Patient seen and examined at bed side. more alert today, confabulating stories when asked questions he cant remember, still confused. patient in no acute distress, anxious on where is his belongings. denies cp. sob, n/v/d/c/, fevers, chills. OBJECTIVE: Vital Signs Period Temp Pulse Resp BP Sys/Guan Pulse Ox Last 24 Hr 98.2 F-99.2 F 64-90 18-24 116-147/71-85 98-98 GENERAL: AAOx2 in no acute distress, confused, more alert and more conversation than yesterday HEAD: Normal with no signs of trauma. EYES: PERRL, extraocular movements intact, sclera anicteric, conjunctiva clear. No ptosis. ENT: Ears normal, nares patent, oropharynx clear without exudates, dry mucous membranes. membranes. NECK: Trachea midline, full range of motion, supple. LUNGS: decreased breath sounds at the bases, with a few scattered rhonchi HEART: Regular rate and rhythm, S1, S2 without murmur, rub or gallop. ABDOMEN: Soft, nontender, nondistended, normoactive bowel sounds, no guarding, no rebound, no hepatosplenomegaly, no masses. EXTREMITIES: 2+ pulses, warm, well-perfused, no edema. +5/5 strength better than yesterday BL upper ext, +5/5 strength Bl lower ext. able to follow directions, sensation intact NEUROLOGICAL: Cranial nerves II through XII grossly intact. Normal speech, gait not observed. PSYCH: Normal mood, normal affect. SKIN: Warm, dry, normal turgor, no rashes or lesions noted Laboratory Results - last 24 hr 09/13/16 09/19/16 09/19/16 21:50 08:25 08:25 WBC 6.2 RBC 3.89 L Hgb 11.3 L Hct 35.3 L MCV 90.6 MCHC 31.9 L RDW 18.0 H Plt Count 175 D MPV 10.2 Neutrophils % 69.5 Lymphocytes % 16.9 D Monocytes % 11.1 H Eosinophils % 1.8 Basophils % 0.7 Sodium 145 Potassium 3.4 L Chloride 108 H Carbon Dioxide 30 Anion Gap 7 L BUN 11 Creatinine 1.0 Creat Clearance w eGFR > 60 Random Glucose 87 Calcium 8.6 Phosphorus 2.4 L D Magnesium 2.1 Total Bilirubin 0.6 AST 26 ALT 29 Alkaline Phosphatase 42 L Total Protein 6.4 Albumin 2.7 L CSF Lyme IgG Ab 18 kDa Absent CSF Lyme IgG Ab 23 kDa Absent CSF Lyme IgG Ab 28 kDa Absent CSF Lyme IgG Ab 30 kDa Absent CSF Lyme IgG Ab 39 kDa Absent CSF Lyme IgG Ab 41 kDa Absent CSF Lyme IgG Ab 45 kDa Absent CSF Lyme IgG Ab 58 kDa Absent CSF Lyme IgG Ab 66 kDa Absent CSF Lyme IgG Ab 93 kDa Absent CSF Lyme IgM Ab 23 kDa Absent CSF Lyme IgM Ab 39 kDa Absent CSF Lyme IgM Ab 41 kDa Absent Lyme IgG Ab Interpret Negative Active Medications Generic Name Dose Route Start Last Admin Trade Name Freq PRN Reason Stop Dose Admin Folic Acid 1 mg 09/19/16 10:00 09/19/16 09:15 Folic Acid - PO 1 mg DAILY [facility] Administration Haloperidol 2 mg 09/18/16 17:22 09/18/16 17:48 Haldol Injection (Fast Acting) - IM 2 mg Q4H PRN Administration ANXIETY Heparin Sodium (Porcine) 5,000 unit 09/18/16 22:00 09/19/16 14:09 Heparin - SQ 5,000 unit TID [facility] Administration Folic Acid 1 mg/ Thiamine HCl 1,000 mls @ 125 mls/hr 09/19/16 17:00 100 mg/ Multivitamins/Minerals IVPB 10 ml/ Sodium Chloride DAILY [facility] Multivitamins/Minerals/Vitamin C 1 tab 09/19/16 10:00 09/19/16 09:15 Tab-A-Vit - PO 1 tab DAILY [facility] Administration Thiamine HCl 100 mg 09/19/16 10:00 09/19/16 09:15 Vitamin B1 - PO 100 mg DAILY [facility] Administration ASSESSMENT/PLAN: 66 yo M admitted to telemetry for alcohol withdrawal and possible benzo overdose found on the floor of his apartment for undetermined length of time face and nostrils covered with dry vomitus, patient presented to ED obtunded. Found to have elevated lactic acid pH of 7.23, trending up lactic acid, BUN/Cr 36/1.6, Sodium 151, negative troponins, CXR negative for pulmonary dz, Ct showed moderate atrophy and ventricular dilation (consistent with prior CT on ) without interval change or acute intracranial pathology. Urine tox positive for alcohol and benzos. AMS-Acute metabolic encephalopathy, metabolic encephalopathy, alcohol withdrawal , Wernicke Korsakoff encephalopathy.-mental status improving, Agitated, moving limbs resolved, patient confabulating elaborate stories. mental status continuing to be poor. -Neuro check q1hr -avoid given any sedating drugs. -neurology consult appreciated - metabolic encephalopathy possible secondary to sepsis or withdrawal. - low albumin- consider correct albuminemia. - To do MRI brain without contrast whenever off vent and able to tolerate. - banana bag iv. daily for vitamins deficiency, possible Wernicke Korsakoff encephalopathy. - EEG to rule out seizures. - DVT prophylaxis lovenox sq. - awaiting PT eval. will likely require placement. d/c planning -consult psych for competency Acute respiratory failure-Resolved Sepsis due to PNA: resolved Rhabdomyolysis: resolved Transaminitis: resolved Hypernatremia: resolved EBVERLEY:resolved Benzo overdose:resolved Metabolic lactic acidosis: resolved h/o alcohol abuse: monitor for Alcohol withdrawal, h/o PE and DVT - not on anticoagulation at home risk of fall and history of hemorrhagic stroke - heparin sq FEN moniture electrolyte repleat as needed : hypokalemia- Kcl 40meq po hypophosphatemia- neutraphos Diet Consistency: Dysphagia Pureed Medication Administration: Crushed with applesauce Liquids: [place] Thick Malnutrition- dietary consult. ensure supplements Prophylaxis - GI: not indicated - deconditioning: fall precaution: DVT ppx- hep sq Visit type - Emergency Visit Emergency Visit: Yes ED Registration Date: 09/12/16 Care time: The patient presented to the Emergency Department on the above date and was hospitalized for further evaluation of their emergent condition. - New Patient This patient is new to me today: No - Critical Care Critical Care patient: No
[2016-09-20] MEDS: HEPARIN NA (PORCINE) 5,000 UNITS/ML 1ML VIAL SQ SCH ×3 (06:00→21:29)
--- NOTE | 2016-09-20 06:25 | PN ---
Physical Exam: SUBJECTIVE: Patient seen and examined at bed side. patient feels well. his mental status improving he is now AAOx3. confabulates a elaborate stories. Denies CP, SOB,fever, chills, hallucinations initially refused meds and IV Banana bag. took them latter on last night. awaiting psych and PT evaluation for placement. OBJECTIVE: Vital Signs Period Temp Pulse Resp BP Sys/Guan Pulse Ox Last 24 Hr 98.2 F-99.2 F 64-85 18-20 116-138/71-82 98 GENERAL: AAOx3 in no acute distress, confused, more alert and more conversation than yesterday, in abetter mood than yesterday( more smiling and less agitated) HEAD: Normal with no signs of trauma. EYES: PERRL, extraocular movements intact, sclera anicteric, conjunctiva clear. No ptosis. ENT: Ears normal, nares patent, oropharynx clear without exudates, dry mucous membranes. membranes. NECK: Trachea midline, full range of motion, supple. LUNGS: decreased breath sounds at the bases, with a few scattered rhonchi HEART: Regular rate and rhythm, S1, S2 without murmur, rub or gallop. ABDOMEN: Soft, nontender, nondistended, normoactive bowel sounds, no guarding, no rebound, no hepatosplenomegaly, no masses. EXTREMITIES: 2+ pulses, warm, well-perfused, no edema. +5/5 strength better than yesterday BL upper ext, +5/5 strength Bl lower ext. able to follow directions, sensation intact NEUROLOGICAL: Cranial nerves II through XII grossly intact. Normal speech, gait not observed. PSYCH: Normal mood, normal affect. SKIN: Warm, dry, normal turgor, no rashes or lesions noted Laboratory Results - last 24 hr 09/19/16 09/19/16 08:25 08:25 WBC 6.2 RBC 3.89 L Hgb 11.3 L Hct 35.3 L MCV 90.6 MCHC 31.9 L RDW 18.0 H Plt Count 175 D MPV 10.2 Neutrophils % 69.5 Lymphocytes % 16.9 D Monocytes % 11.1 H Eosinophils % 1.8 Basophils % 0.7 Sodium 145 Potassium 3.4 L Chloride 108 H Carbon Dioxide 30 Anion Gap 7 L BUN 11 Creatinine 1.0 Creat Clearance w eGFR > 60 Random Glucose 87 Calcium 8.6 Phosphorus 2.4 L D Magnesium 2.1 Total Bilirubin 0.6 AST 26 ALT 29 Alkaline Phosphatase 42 L Total Protein 6.4 Albumin 2.7 L Active Medications Generic Name Dose Route Start Last Admin Trade Name Demarq PRN Reason Stop Dose Admin Folic Acid 1 mg 09/19/16 10:00 09/19/16 09:15 Folic Acid - PO 1 mg DAILY [facility] Administration Haloperidol 2 mg 09/18/16 17:22 09/18/16 17:48 Haldol Injection (Fast Acting) - IM 2 mg Q4H PRN Administration ANXIETY Heparin Sodium (Porcine) 5,000 unit 09/18/16 22:00 09/19/16 22:57 Heparin - SQ Not Given TID [facility] Folic Acid 1 mg/ Thiamine HCl 1,000 mls @ 125 mls/hr 09/19/16 17:00 09/19/16 20 :52 100 mg/ Multivitamins/Minerals IVPB 125 mls/hr 10 ml/ Sodium Chloride DAILY [facility] Administration Multivitamins/Minerals/Vitamin C 1 tab 09/19/16 10:00 09/19/16 09:15 Tab-A-Vit - PO 1 tab DAILY [facility] Administration Thiamine HCl 100 mg 09/19/16 10:00 09/19/16 09:15 Vitamin B1 - PO 100 mg DAILY [facility] Administration ASSESSMENT/PLAN: 66 yo M admitted to telemetry for alcohol withdrawal and possible benzo overdose found on the floor of his apartment for undetermined length of time face and nostrils covered with dry vomitus, patient presented to ED obtunded. Found to have elevated lactic acid pH of 7.23, trending up lactic acid, BUN/Cr 36/1.6, Sodium 151, negative troponins, CXR negative for pulmonary dz, Ct showed moderate atrophy and ventricular dilation (consistent with prior CT on ) without interval change or acute intracranial pathology. Urine tox positive for alcohol and benzos. AMS-Acute metabolic encephalopathy, metabolic encephalopathy, alcohol withdrawal , Wernicke Korsakoff encephalopathy.-mental status improving, moving limbs resolved, patient confabulating elaborate stories. mental status continuing to be poor. -Neuro check q1hr -avoid given any sedating drugs. -neurology consult appreciated - metabolic encephalopathy possible secondary to sepsis or withdrawal. - low albumin- consider correct albuminemia. - To do MRI brain without contrast whenever off vent and able to tolerate. - banana bag iv. daily for vitamins deficiency, possible Wernicke Korsakoff encephalopathy. - EEG to rule out seizures. - DVT prophylaxis lovenox sq. - awaiting PT eval. will likely require placement. d/c planning - for competency" Patient lacks functional capacity to make informed decisions at this time due to acute cognitive impairment per psych consult. Acute respiratory failure-Resolved Sepsis due to PNA: resolved Rhabdomyolysis: resolved Transaminitis: resolved Hypernatremia: resolved BEVERLEY:resolved Benzo overdose:resolved Metabolic lactic acidosis: resolved h/o alcohol abuse: monitor for Alcohol withdrawal, h/o PE and DVT - not on anticoagulation at home risk of fall and history of hemorrhagic stroke - heparin sq FEN moniture electrolyte repleat as needed : hypokalemia- Kcl 40meq po hypophosphatemia- neutraphos Diet Consistency: Upgrade to regular diet with thin liquids as tolerated. Medication Administration: Crushed with applesauce Liquids: [place] Thick Malnutrition- dietary consult. ensure supplements Prophylaxis - GI: not indicated - deconditioning: fall precaution: DVT ppx- hep sq hypokalemia- Kcl 40meq po dispo: for competency" Patient lacks functional capacity to make informed decisions at this time due to acute cognitive impairment. Discuss with family placement, family visiting him tomorrow per nurse. Visit type - Emergency Visit Emergency Visit: Yes ED Registration Date: 09/12/16 Care time: The patient presented to the Emergency Department on the above date and was hospitalized for further evaluation of their emergent condition. - New Patient This patient is new to me today: No - Critical Care Critical Care patient: No
[2016-09-20 08:17] LABS: MCH 29.2 pg (25.7-33.7); MCHC 32.5 g/dl (32.0-35.9); MEAN CELL VOLUME 90.1 fl (80-96); MEAN PLT VOLUME 10.4 fl (7.5-11.1); PLATELET COUNT 195 K/MM3 (134-434); WHITE BLOOD COUNT 5.9 K/mm3 (4.0-10.0)
[2016-09-20 08:40] LABS: CALCIUM 8.3 mg/dL (8.5-10.1); CREATININE 0.9 mg/dL (0.7-1.3); MAGNESIUM 1.8 mg/dL (1.8-2.4); PHOSPHOROUS 2.7 mg/dL (2.5-4.9)
[2016-09-20] MEDS: MULTIVITAMINS (DAILY MVI) TABLET (FP) PO SCH (10:10)
[2016-09-20] MEDS: FOLIC ACID 1 MG TABLET (FP) PO SCH (10:10)
[2016-09-20] MEDS: THIAMINE HCL 100 MG TABLET (FP) PO SCH (10:10)
[2016-09-20] MEDS: FOLIC ACID INJECTION - 1 MG, THIAMINE HCL 100 MG, MULTIVIT INJECTION ADULT 10 ML in SOD... IVPB SCH (10:11)
--- NOTE | 2016-09-20 11:45 | PN ---
Progress Note (short form) - Note Progress Note: PULMONARY LYING COMFORTABLY IN BED/NOT ON O2 CONTINUES TO IMPROVE LABS/MEDS/NOTES REVIEWED A/P Altered Mental Status resolved s/p Acute Respiratory Failure resolved Sepsis/pneumonia improved Acute Kidney Injury resolved Lactic Acidosis resolved Alcohol Withdrawal Hepatic Encephalopathy Rhabdomyolysis h/o PE - antibitoics completed - monitor urine output, creatinine - replete lytes - aspiration precautions - DVT prophylaxis - OOB to chair, PT Please call PRMarjorie Brown md
[2016-09-20 13:16] LABS: TOXOPLASMA IGG,CSF < 3.0 IU/mL (.)
[2016-09-20] MEDS ORDERED: NAPH,MB-DB/K PH,MBDB POWDER PACKET PO ONE (15:00)
[2016-09-20] MEDS ORDERED: POTASSIUM CHLORIDE 40 MEQ/30 ML UNIT DOSE CUP PO ONE (15:00)
--- NOTE | 2016-09-20 15:01 | PN ---
Teaching Attending Note Name of Resident: Cheryl Sosa ATTENDING PHYSICIAN STATEMENT I saw and evaluated the patient. I reviewed the resident's note and discussed the case with the resident. I agree with the resident's findings and plan as documented. SUBJECTIVE:currently asymptomatic. confabulates a story of that he lives in an apartment in the hospital and that he had to be in the "actual hospital" to fix him. states that he hopes we will allow him to go back to his apartment soon, but knows that he is still very weak and thats why were keeping him. denies CP, SOB,fever, chills, hallucinations OBJECTIVE: Last Vital Signs Temp Pulse Resp BP Pulse Ox 98.4 F 85 16 126/77 99 09/20/16 09:00 09/20/16 09:00 09/20/16 09:00 09/20/16 09:00 09/20/16 09:00 General A&Ox3, Extremities moves all 4 extremities ASSESSMENT AND PLAN: 66yo M with PMH Continuous ETOH abuse, PE and subdural hematoma presented to the ER and was admitted for further evaluation of their emergent condition 1. Acute respiratory failure- intubated for airway protection. now extubated. saturating well on RA 2. 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 +confabulation and ataxia. no opthamoplegia. awaiting psych eval as pt becomes aggressive and agitated at night. also for competency as I think pt is not able to care for himself. cont haldol prn. thimaine/folate/MVI 3. Sepsis due to PNA-possible aspiration. SCx MRSA. remains afebrile off abx. cont to monitor. 4. hypokalemia- Kcl 40meq po 5. hypophosphatemia- neutraphos 6. Malnutrition- dietary consult. ensure supplements 7. DVT ppx- hep sq 8. awaiting PT eval. will likely require placement. d/c planning
--- NOTE | 2016-09-20 16:38 | CONSULT ---
Psychiatry Consult Chief Complaint: I am ok. I am home. Symptoms: reports: Memory Impairment - Previous Psychiatric Treatment Outpatient: None Inpatient: None - Previous Substance Abuse Treatment Inpatient: Within the last 12 months - Reason for Previous Treatment Reason for Previous Treatment: Alcohol Abuse - Family History Family History: Unremarkable - Current Medications Current Medications: Active Medications Folic Acid (Folic Acid -) 1 mg PO DAILY [facility] Last Admin: 09/20/16 10:10 Dose: 1 mg Haloperidol (Haldol Injection (Fast Acting) -) 2 mg IM Q4H PRN PRN Reason: ANXIETY Last Admin: 09/18/16 17:48 Dose: 2 mg Heparin Sodium (Porcine) (Heparin -) 5,000 unit SQ TID [facility] Last Admin: 09/20/16 06:00 Dose: Not Given Multivitamins/Minerals/Vitamin C (Tab-A-Vit -) 1 tab PO DAILY [facility] Last Admin: 09/20/16 10:10 Dose: 1 tab Thiamine HCl (Vitamin B1 -) 100 mg PO DAILY [facility] Last Admin: 09/20/16 10:10 Dose: 100 mg - Allergies Allergies: Allergies Allergy/AdvReac Type Severity Reaction Status Date / Time No Known Allergies Allergy Verified 09/12/16 11:13 - Current Living Status Usual Living Arrangement: Alone - Current Mental Status Evaluation Appearance: Disheveled Attitude: Cooperative - Affect Affect: Constrictive Appropriateness: Not Appropriate - Mood Mood: Euthymic - Speech/Language Expressive: Delayed Receptive: Age Appropriate Comprehension of Spoken Words - Psychomotor Activity Psychomotor Activity: Normal - Thought Process Thought Process: Circumstantial - Thought Content Hallucinations: Absent Delusions: Absent - Self Perception Self Perception: No Impairment - Cognition Attention: Alert Orientation: Time, Place Memory, Immediate Recall: Impaired Memory, Short Term: 1/3 Memory, Remote with Promptin/3 - Concentration Serial Sevens Intact: No Simple Calculations Intact: No - Abstraction Proverb Interpretation: Impaired Judgement: Moderately Impaired - Insight Insight: Impaired - Impulse Control Impulse Control: Minimally Impaired - Suicidal Ideation Suicidal Ideation: No - Homicidal Ideation Homicidal Ideation: No Assessment/Plan 1) Patient lacks functional capacity to make informed decisions at this time due to acute cognitive impairment.
--- NOTE | 2016-09-20 18:02 | PN ---
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 Awake and alert. Vocal quality is clear and mildly hyponasal with adequate volume. VSS. CXR 09/18/16 reports improved (L) lung aeration and (-) infiltrates. Patient given trial of thin liquids and chewable solids. Impression: Patient is able to tolerate thin liquids and solids without signs of aspiration. Patient states that his throat feels much better than 2 days ago [post extubation]. ROAD HOGGER OPERATOR discussed with charge nurse [Cynthia] on unit. Rx: Upgrade to regular diet with thin liquids as tolerated.
[2016-09-21] MEDS: HEPARIN NA (PORCINE) 5,000 UNITS/ML 1ML VIAL SQ SCH ×3 (06:50→21:20)
[2016-09-21 08:31] LABS: CALCIUM 8.2 mg/dL (8.5-10.1); MAGNESIUM 1.8 mg/dL (1.8-2.4); PHOSPHOROUS 2.9 mg/dL (2.5-4.9)
[2016-09-21] MEDS: MULTIVITAMINS (DAILY MVI) TABLET (FP) PO SCH (10:26)
[2016-09-21] MEDS: THIAMINE HCL 100 MG TABLET (FP) PO SCH (10:27)
[2016-09-21] MEDS: FOLIC ACID 1 MG TABLET (FP) PO SCH (10:28)
[2016-09-21] MEDS ORDERED: POTASSIUM CHLORIDE 40 MEQ/30 ML UNIT DOSE CUP PO ONE ×2 (15:10→17:30)
--- NOTE | 2016-09-21 15:13 | PN ---
Progress Note (short form) - Note Progress Note: currently asymptomatic. denies CP, SOB,fever, chills, N/V/C/D as per RN had confusion in the evening that improved with re-direction. did pull his alamo out this AM. urine incontinent Current Medications Generic Name Dose Route Start Last Admin Trade Name Freq PRN Reason Stop Dose Admin Folic Acid 1 mg 09/19/16 10:00 09/21/16 10:28 Folic Acid - PO 1 mg DAILY MIS Administration Haloperidol 2 mg 09/18/16 17:22 09/18/16 17:48 Haldol Injection (Fast Acting) - IM 2 mg Q4H PRN Administration ANXIETY Heparin Sodium (Porcine) 5,000 unit 09/18/16 22:00 09/21/16 13:09 Heparin - SQ 5,000 unit TID MIS Administration Multivitamins/Minerals/Vitamin C 1 tab 09/19/16 10:00 09/21/16 10:26 Tab-A-Vit - PO 1 tab DAILY MIS Administration Thiamine HCl 100 mg 09/19/16 10:00 09/21/16 10:27 Vitamin B1 - PO 100 mg DAILY MIS Administration Last Vital Signs Temp Pulse Resp BP Pulse Ox 98.2 F 74 18 109/71 99 09/21/16 10:00 09/21/16 10:00 09/21/16 10:00 09/21/16 06:00 09/20/16 21:00 General A&Ox3, Extremities moves all 4 extremities ASSESSMENT AND PLAN: 66yo M with PMH Continuous ETOH abuse, PE and subdural hematoma presented to the ER and was admitted for further evaluation of their emergent condition 1. Acute respiratory failure- intubated for airway protection. now extubated. saturating well on RA 2. 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 no haldol needed for 48H. psych states pt lacks competency. will start seroquel for . cont haldol prn. thimaine/folate/MVI 3. Sepsis due to PNA-possible aspiration. SCx MRSA. remains afebrile off abx. cont to monitor. 4. hypokalemia- Kcl 40meq po 5. hypophosphatemia- resolved 6. Mmptpzqscrhz-bc-pvciyxonp by swallow therapist and tolerate regular diet. dietary consult. ensure supplements 7. DVT ppx- hep sq 8. will need ELISE on discharge. d/c planning Visit type - Emergency Visit Emergency Visit: Yes ED Registration Date: 09/12/16 Care time: The patient presented to the Emergency Department on the above date and was hospitalized for further evaluation of their emergent condition. - New Patient This patient is new to me today: No - Critical Care Critical Care patient: No - Discharge Referral Referred to [facility] Med [facility].C[facility] No
[2016-09-21] MEDS: QUEtiapine FUMARATE 25 MG TABLET (FP) PO SCH (21:20)
[2016-09-22] MEDS: HEPARIN NA (PORCINE) 5,000 UNITS/ML 1ML VIAL SQ SCH ×3 (06:29→21:44)
--- NOTE | 2016-09-22 08:52 | PN ---
Physical Exam: SUBJECTIVE: Patient seen and examined at bed side. patient feels well. his mental status improving he is AAOx3. did not confabulate to me today. reports difficulty urinating, with dripping, and urgency. Denies CP, SOB,fever, chills, hallucinations, OBJECTIVE: Vital Signs Period Temp Pulse Resp BP Sys/Guan Pulse Ox Last 24 Hr 98.2 F-98.8 F 73-84 18-20 118-132/78-86 98-99 GENERAL: AAOx3 in no acute distress, not confused, more alert and more conversation. i HEAD: Normal with no signs of trauma. EYES: PERRL, extraocular movements intact, sclera anicteric, conjunctiva clear. No ptosis. ENT: Ears normal, nares patent, oropharynx clear without exudates, dry mucous membranes. membranes. NECK: Trachea midline, full range of motion, supple. LUNGS: decreased breath sounds at the bases, with a few scattered rhonchi HEART: Regular rate and rhythm, S1, S2 without murmur, rub or gallop. ABDOMEN: Soft, nontender, nondistended, normoactive bowel sounds, no guarding, no rebound, no hepatosplenomegaly, no masses. EXTREMITIES: 2+ pulses, warm, well-perfused, no edema. +5/5 strength better than yesterday BL upper ext, +5/5 strength Bl lower ext. able to follow directions, sensation intact NEUROLOGICAL: Cranial nerves II through XII grossly intact. Normal speech, gait not observed. PSYCH: Normal mood, normal affect. SKIN: Warm, dry, normal turgor, no rashes or lesions noted Active Medications Generic Name Dose Route Start Last Admin Trade Name Freq PRN Reason Stop Dose Admin Folic Acid 1 mg 09/19/16 10:00 09/21/16 10:28 Folic Acid - PO 1 mg DAILY MIS Administration Haloperidol 2 mg 09/18/16 17:22 09/18/16 17:48 Haldol Injection (Fast Acting) - IM 2 mg Q4H PRN Administration ANXIETY Heparin Sodium (Porcine) 5,000 unit 09/18/16 22:00 09/22/16 06:29 Heparin - SQ 5,000 unit TID MIS Administration Multivitamins/Minerals/Vitamin C 1 tab 09/19/16 10:00 09/21/16 10:26 Tab-A-Vit - PO 1 tab DAILY MIS Administration Quetiapine Fumarate 25 mg 09/21/16 22:00 09/21/16 21:20 Seroquel - PO 25 mg HS MIS Administration Thiamine HCl 100 mg 09/19/16 10:00 09/21/16 10:27 Vitamin B1 - PO 100 mg DAILY MIS Administration ASSESSMENT/PLAN: 66 yo M admitted to telemetry for alcohol withdrawal and possible benzo overdose found on the floor of his apartment for undetermined length of time face and nostrils covered with dry vomitus, patient presented to ED obtunded. Found to have elevated lactic acid pH of 7.23, trending up lactic acid, BUN/Cr 36/1.6, Sodium 151, negative troponins, CXR negative for pulmonary dz, Ct showed moderate atrophy and ventricular dilation (consistent with prior CT on ) without interval change or acute intracranial pathology. Urine tox positive for alcohol and benzos. AMS-Acute metabolic encephalopathy, metabolic encephalopathy, alcohol withdrawal , Wernicke Korsakoff encephalopathy.-mental status improving, moving limbs resolved, patient confabulating elaborate stories. mental status continuing to be poor. - metabolic encephalopathy possible secondary to sepsis or withdrawal. - To do MRI brain without contrast whenever off vent and able to tolerate. 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 - EEG to rule out seizures. - DVT prophylaxis lovenox sq. -awaiting PT eval. will likely require placement. d/c planning - Patient lacks functional capacity to make informed decisions at this time due to acute cognitive impairment per psych consult. - will start seroquel for . cont haldol prn. -no haldol needed for 72HRs Dysurea- bladder scan wNL -f/u UA Acute respiratory failure-Resolved Sepsis due to PNA: resolved Rhabdomyolysis: resolved Transaminitis: resolved Hypernatremia: resolved BEVERLEY:resolved Benzo overdose:resolved Metabolic lactic acidosis: resolved h/o alcohol abuse: monitor for Alcohol withdrawal, h/o PE and DVT - not on anticoagulation at home risk of fall and history of hemorrhagic stroke - heparin sq FEN moniture electrolyte repleat as needed : hypokalemia- Kcl 40meq po hypophosphatemia- neutraphos Diet Consistency: regular diet with thin liquids as tolerated, ensure supplements Medication Administration: Crushed with applesauce Liquids: Amoret Thick Malnutrition- dietary consult. ensure supplements Prophylaxis - GI: not indicated - deconditioning: fall precaution: DVT ppx- hep sq hypokalemia- Kcl 40meq po dispo: for competency" Patient lacks functional capacity to make informed decisions at this time due to acute cognitive impairment. Discuss with family placement, family visiting him tomorrow per nurse. Visit type - Emergency Visit Emergency Visit: Yes ED Registration Date: 09/12/16 Care time: The patient presented to the Emergency Department on the above date and was hospitalized for further evaluation of their emergent condition. - New Patient This patient is new to me today: No - Critical Care Critical Care patient: No
[2016-09-22] MEDS: FOLIC ACID 1 MG TABLET (FP) PO SCH (10:11)
[2016-09-22] MEDS: MULTIVITAMINS (DAILY MVI) TABLET (FP) PO SCH (10:11)
[2016-09-22] MEDS: THIAMINE HCL 100 MG TABLET (FP) PO SCH (10:11)
--- NOTE | 2016-09-22 15:22 | PN ---
Teaching Attending Note Name of Resident: Cheryl Sosa ATTENDING PHYSICIAN STATEMENT I saw and evaluated the patient. I reviewed the resident's note and discussed the case with the resident. I agree with the resident's findings and plan as documented. SUBJECTIVE:c/o urinary frequency and dribbling. denies CP, SOB,fever, chills, N/ V/C/D No reports from RN of agitation or confusion, been off restraints 24H OBJECTIVE: Last Vital Signs Temp Pulse Resp BP Pulse Ox 99.0 F 75 18 113/65 98 09/22/16 14:34 09/22/16 14:34 09/22/16 14:34 09/22/16 14:34 09/21/16 21:00 General A&Ox3, abdomen soft NT/ND Extremities moves all 4 extremities ASSESSMENT AND PLAN: 66yo M with PMH Continuous ETOH abuse, PE and subdural hematoma presented to the ER and was admitted for further evaluation of their emergent condition 1. Acute respiratory failure- intubated for airway protection. now extubated. saturating well on RA 2. 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 no haldol or restraints needed. started on seroquel with good effect. MRI brain obtained central atrophy vs NPH, will await from neuro if needs further management.cont haldol prn. thimaine/folate/MVI 3. dysuria- check UA to r/o infection, if not may be due to enlarged prostate 4. Sepsis due to PNA-possible aspiration. SCx MRSA. remains afebrile off abx. cont to monitor. 5. hypokalemia- resolved 6. hypophosphatemia- resolved 7. Xgswpctfhlks-sz-mhbykbtte by swallow therapist and tolerate regular diet. dietary consult. ensure supplements 8. DVT ppx- hep sq 9. will need ELISE on discharge. d/c planning
[2016-09-22] MEDS: QUEtiapine FUMARATE 25 MG TABLET (FP) PO SCH (21:43)
[2016-09-23] MEDS: HEPARIN NA (PORCINE) 5,000 UNITS/ML 1ML VIAL SQ SCH ×3 (06:22→21:46)
--- NOTE | 2016-09-23 08:59 | PN ---
Progress Note (short form) - Note Progress Note: states dysuria and dribbling has resolved. denies CP, SOB,fever, chills, N/V/C/D Current Medications Generic Name Dose Route Start Last Admin Trade Name Kaleb PRN Reason Stop Dose Admin Folic Acid 1 mg 09/19/16 10:00 09/22/16 10:11 Folic Acid - PO 1 mg DAILY MIS Administration Haloperidol 2 mg 09/18/16 17:22 09/18/16 17:48 Haldol Injection (Fast Acting) - IM 2 mg Q4H PRN Administration ANXIETY Heparin Sodium (Porcine) 5,000 unit 09/18/16 22:00 09/23/16 06:22 Heparin - SQ 5,000 unit TID MIS Administration Multivitamins/Minerals/Vitamin C 1 tab 09/19/16 10:00 09/22/16 10:11 Tab-A-Vit - PO 1 tab DAILY MIS Administration Quetiapine Fumarate 25 mg 09/21/16 22:00 09/22/16 21:43 Seroquel - PO 25 mg HS MIS Administration Thiamine HCl 100 mg 09/19/16 10:00 09/22/16 10:11 Vitamin B1 - PO 100 mg DAILY MIS Administration Last Vital Signs Temp Pulse Resp BP Pulse Ox 98.3 F 73 18 113/73 98 09/23/16 06:00 09/23/16 06:00 09/23/16 06:00 09/23/16 06:00 09/22/16 20:56 General A&Ox3, Abdomen soft NT/ND no suprapubic tenderness or pain ASSESSMENT AND PLAN: 66yo M with PMH Continuous ETOH abuse, PE and subdural hematoma presented to the ER and was admitted for further evaluation of their emergent condition 1. Acute respiratory failure- intubated for airway protection. now extubated. saturating well on RA 2. 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 no haldol needed for several days also no indication for restraints. no more reported agitation. psych states pt lacks competency. cont seroquel for . cont haldol prn. thimaine/folate/MVI 3. Dysuria- states it has resolved. unable to obtain UA today. explained to pt should check. he agreed. 3. Sepsis due to PNA-possible aspiration. SCx MRSA. remains afebrile off abx. cont to monitor. 4. hypokalemia- resolved 5. hypophosphatemia- resolved 6. Malnutrition-appetite improved and tolerating regular diet, noted to be eating >75% of his plates. dietary consult. ensure supplements 7. DVT ppx- hep sq 8. will likely require placement due to dementia as unable to care for himself. Visit type - Emergency Visit Emergency Visit: Yes ED Registration Date: 09/12/16 Care time: The patient presented to the Emergency Department on the above date and was hospitalized for further evaluation of their emergent condition. - New Patient This patient is new to me today: No - Critical Care Critical Care patient: No - Discharge Referral Referred to [facility] Med P.C.: No
[2016-09-23] MEDS: MULTIVITAMINS (DAILY MVI) TABLET (FP) PO SCH (09:02)
[2016-09-23] MEDS: THIAMINE HCL 100 MG TABLET (FP) PO SCH (09:03)
[2016-09-23] MEDS: FOLIC ACID 1 MG TABLET (FP) PO SCH (09:03)
[2016-09-23 13:24] LABS: URINE APPEARANCE CLEAR; URINE BILIRUBIN NEGATIVE (NEGATIVE); URINE BLOOD NEGATIVE (NEGATIVE); URINE COLOR YELLOW; URINE GLUCOSE (UA) NEGATIVE (NEGATIVE); URINE KETONE NEGATIVE (NEGATIVE); URINE LEUK ESTERASE NEGATIVE (NEGATIVE); URINE NITRITE NEGATIVE (NEGATIVE); URINE PROTEIN NEGATIVE (NEGATIVE); URINE UROBILINOGEN NEGATIVE E.U./dl (0.2-1.0)
--- NOTE | 2016-09-23 16:24 | PN ---
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
[2016-09-23] MEDS: QUEtiapine FUMARATE 25 MG TABLET (FP) PO SCH (21:46)
[2016-09-24] MEDS: HEPARIN NA (PORCINE) 5,000 UNITS/ML 1ML VIAL SQ SCH ×3 (05:58→21:35)
--- NOTE | 2016-09-24 09:40 | PN ---
Progress Note (short form) - Note Progress Note: PULMONARY/CCM Progress Note Resting in NAD on RA. No acute events overnight. Appears overall better. Intake & Output 09/21/16 09/22/16 09/23/16 09/24/16 23:59 23:59 23:59 23:59 Intake Total 360 1350 1600 Output Total 400 1200 Balance -40 150 1600 Last Vital Signs Temp Pulse Resp BP Pulse Ox 98.7 F 72 20 114/72 98 09/24/16 06:54 09/24/16 06:54 09/24/16 06:54 09/24/16 06:54 09/22/16 20:56 Active Medications Folic Acid (Folic Acid -) 1 mg PO DAILY [facility] Last Admin: 09/23/16 09:03 Dose: 1 mg Haloperidol (Haldol Injection (Fast Acting) -) 2 mg IM Q4H PRN PRN Reason: ANXIETY Last Admin: 09/18/16 17:48 Dose: 2 mg Heparin Sodium (Porcine) (Heparin -) 5,000 unit SQ TID [facility] Last Admin: 09/24/16 05:58 Dose: 5,000 unit Multivitamins/Minerals/Vitamin C (Tab-A-Vit -) 1 tab PO DAILY [facility] Last Admin: 09/23/16 09:02 Dose: 1 tab Quetiapine Fumarate (Seroquel -) 25 mg PO HS [facility] Last Admin: 09/23/16 21:46 Dose: 25 mg Thiamine HCl (Vitamin B1 -) 100 mg PO DAILY [facility] Last Admin: 09/23/16 09:03 Dose: 100 mg Gen: Awake and alert Heart: RRR Lung: decreased breath sounds at the bases, with a few scattered rhonchi Abd: soft, nontender Ext: no edema Laboratory Results - last 24 hr 09/13/16 09/23/16 21:50 11:45 Urine Color Yellow Urine Appearance Clear Urine pH 5.0 Ur Specific [place] 1.016 Urine Protein Negative Urine Glucose (UA) Negative Urine Ketones Negative Urine Blood Negative Urine Nitrite Negative Urine Bilirubin Negative Urine Urobilinogen Negative Ur Leukocyte Esterase Negative CSF Lyme IgG [place] Y CSF Lyme IgM [place] Y Lyme IgM Interpretaton Y A/P Altered Mental Status Acute Respiratory Failure Pneumonia Sepsis Acute Kidney Injury Lactic Acidosis r/o Alcohol Withdrawal Hepatic Encephalopathy Hypernatremia Rhabdomyolysis h/o PE - VTE prophylaxis - PO as tolerated - Aspiration precautions - No Pulmonary contraindication for D/C Dr Galan
[2016-09-24] MEDS: MULTIVITAMINS (DAILY MVI) TABLET (FP) PO SCH (10:41)
[2016-09-24] MEDS: FOLIC ACID 1 MG TABLET (FP) PO SCH (10:41)
[2016-09-24] MEDS: THIAMINE HCL 100 MG TABLET (FP) PO SCH (10:41)
--- NOTE | 2016-09-24 14:59 | PN ---
Progress Note, Physician History of Present Illness: Convinced he had nothing to drink prior to his LOC the patient is concerned that he has not regained his strength has he had in the past "when this has happened to him after drinking." - Current Medication List Current Medications: Active Medications Folic Acid (Folic Acid -) [address] [facility] Last Admin: 09/24/16 10:41 Dose: 1 mg Haloperidol (Haldol Injection (Fast Acting) -) 2 mg IM Q4H PRN PRN Reason: ANXIETY Last Admin: 09/18/16 17:48 Dose: 2 mg Heparin Sodium (Porcine) (Heparin -) 5,[address] [facility] Last Admin: 09/24/16 14:03 Dose: Not Given Multivitamins/Minerals/Vitamin C (Tab-A-Vit -) [address] [facility] Last Admin: 09/24/16 10:41 Dose: 1 tab Quetiapine Fumarate (Seroquel -) [address] [facility] Last Admin: 09/23/16 21:46 Dose: 25 mg Thiamine HCl (Vitamin B1 -) [address] [facility] Last Admin: 09/24/16 10:41 Dose: 100 mg - Objective Vital Signs: Vital Signs Temperature 98.4 F 09/24/16 10:38 Pulse Rate 69 09/24/16 10:38 Respiratory Rate 18 09/24/16 10:38 Blood Pressure 111/60 09/24/16 10:38 O2 Sat by Pulse Oximetry (%) 99 09/24/16 10:30 Constitutional: Yes: Well Nourished, No Distress Eyes: Yes: EOM Intact HENT: Yes: Atraumatic Neck: Yes: Supple Cardiovascular: Yes: Regular Rate and Rhythm Neurological: Yes: Alert, Oriented. No: Aphasia, Ataxia, Dysarthria, Facial Droop, Loss of Sensation, Numbness, Weakness Labs: CBC, BMP 09/20/16 07:45 09/21/16 06:30 INR, PTT INR 1.04 (0.82-1.09) 09/18/16 05:27 Assessment/Plan MRI noted diffuse atrophy significant for age with associated ventriculomegaly and hx of ETOH use. The is no associated incontinence, dementia or ataxic gait therefore NPH is excluded. P Suggest PT and rehab for gait and balance training Suggest Addiction Medicine consultation for ETOH abuse
--- NOTE | 2016-09-24 17:44 | PN ---
Teaching Attending Note Name of Resident: Cheryl Sosa ATTENDING PHYSICIAN STATEMENT I saw and evaluated the patient. I reviewed the resident's note and discussed the case with the resident. I agree with the resident's findings and plan as documented. SUBJECTIVE: seen and evaluated at the bedside OBJECTIVE: resting comfortably, AAO and seems to be at his baseline mental status at this time ASSESSMENT AND PLAN: 66 yo M with h/o EtOH abuse, PE, subdural hematoma, and DVT admitted for altered mental status due to sepsis due to aspiration pneumonia -pt was found unconscious on floor with vomit at home and brought to the ER -was febrile with retro-cardiac consolidation on CXR and very lethargic -started clindamycin and ceftriaxone to cover gram positives/gram negative/ anerobes for possible aspiration pneumonia -Pt remained extremely lethargic and only nodding his head "yes" when asked questions. Neck is supple, pt remained febrile and tachypnic. Extremities were completely flaccid, pupils constricted, babinski mute B/L. gave dose of vancomycin and zosyn, and transferred to ICU -was intubated and sedated for multiple days and has since been successfully been extubated and doing well at this time -was found to lack capacity last week due to mental status but now is near if not back at his baseline mental status -for subacute rehab as pt has weakness from ICU stay
--- NOTE | 2016-09-24 18:29 | PN ---
Physical Exam: SUBJECTIVE: Patient seen and examined at bed side today. patient more alert and oriented. Discussed with his next of kin sister Jessi, she report she was on the floor for about 8hours when his neighbor heard him moaning and called 911. sister searched apartment and no evidence of alcohol bottles as he normally has at least three on hand. she does would like him to be send to rehab and not discharge home. reports walking to the bathroom and legs getting stronger today. Denies CP, SOB,fever, chills, hallucinations, OBJECTIVE: Vital Signs Period Temp Pulse Resp BP Sys/Guan Pulse Ox Last 24 Hr 98.4 F-98.7 F 69-72 18-20 110-114/60-72 99 GENERAL: AAOx3 in no acute distress, more alert and more conversation. sitting up in a chair HEAD: Normal with no signs of trauma. EYES: PERRL, extraocular movements intact, sclera anicteric, conjunctiva clear. No ptosis. ENT: Ears normal, nares patent, oropharynx clear without exudates, dry mucous membranes. membranes. NECK: Trachea midline, full range of motion, supple. LUNGS: decreased breath sounds at the bases, with a few scattered rhonchi HEART: Regular rate and rhythm, S1, S2 without murmur, rub or gallop. ABDOMEN: Soft, nontender, nondistended, normoactive bowel sounds, no guarding, no rebound, no hepatosplenomegaly, no masses. EXTREMITIES: 2+ pulses, warm, well-perfused, no edema. +5/5 strength better than yesterday BL upper ext, +5/5 strength Bl lower ext. able to follow directions, sensation intact NEUROLOGICAL: Cranial nerves II through XII grossly intact. Normal speech, gait not observed. PSYCH: Normal mood, normal affect. SKIN: Warm, dry, normal turgor, no rashes or lesions noted Active Medications Generic Name Dose Route Start Last Admin Trade Name Freq PRN Reason Stop Dose Admin Folic Acid 1 mg 09/19/16 10:00 09/24/16 10:41 Folic Acid - PO 1 mg DAILY MIS Administration Haloperidol 2 mg 09/18/16 17:22 09/18/16 17:48 Haldol Injection (Fast Acting) - IM 2 mg Q4H PRN Administration ANXIETY Heparin Sodium (Porcine) 5,000 unit 09/18/16 22:00 09/24/16 14:03 Heparin - SQ Not Given TID MIS Multivitamins/Minerals/Vitamin C 1 tab 09/19/16 10:00 09/24/16 10:41 Tab-A-Vit - PO 1 tab DAILY MIS Administration Quetiapine Fumarate 25 mg 09/21/16 22:00 09/23/16 21:46 Seroquel - PO 25 mg HS MIS Administration Thiamine HCl 100 mg 09/19/16 10:00 09/24/16 10:41 Vitamin B1 - PO 100 mg DAILY MIS Administration ASSESSMENT/PLAN: 66 yo M alcohol withdrawal and possible benzo overdose found on the floor of his apartment for 6 hours face and nostrils covered with dry vomitus, patient presented to ED obtunded. Found to have elevated lactic acid pH of 7.23, trending up lactic acid, BUN/Cr 36/1.6, Sodium 151, negative troponins, CXR negative for pulmonary dz, Ct showed moderate atrophy and ventricular dilation ( consistent with prior CT on 01/17/15) without interval change or acute intracranial pathology. Urine tox positive for alcohol and benzos. AMS-Acute metabolic encephalopathy, metabolic encephalopathy, alcohol withdrawal , Wernicke Korsakoff encephalopathy.-mental status improving, moving limbs resolved. - metabolic encephalopathy possible secondary to sepsis or withdrawal. - To do MRI brain without contrast whenever off vent and able to tolerate. 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 - DVT prophylaxis lovenox sq. -awaiting PT eval. will likely require placement. d/c planning - Patient lacks functional capacity to make informed decisions at this time due to acute cognitive impairment per psych consult. - Dr. Darling was called and awaiting another capacity evaluation - cant seroquel for . cont haldol prn. Dysurea- bladder scan wNL -f/u UA Acute respiratory failure-Resolved Sepsis due to PNA: resolved Rhabdomyolysis: resolved Transaminitis: resolved Hypernatremia: resolved BEVERLEY:resolved Benzo overdose:resolved Metabolic lactic acidosis: resolved h/o alcohol abuse: monitor for Alcohol withdrawal, h/o PE and DVT - not on anticoagulation at home risk of fall and history of hemorrhagic stroke - heparin sq FEN moniture electrolyte repleat as needed : Diet Consistency: regular diet with thin liquids as tolerated, ensure supplements Medication Administration: Crushed with applesauce Liquids: [place] Thick Malnutrition- dietary consult. ensure supplements Prophylaxis - GI: not indicated - deconditioning: fall precaution: DVT ppx- hep sq dispo: next of kin agreed on subacute rehab as pt has weakness from ICU stay, Dr. darling will reassess mental capacity again for placement Visit type - Emergency Visit Emergency Visit: Yes ED Registration Date: 09/12/16 Care time: The patient presented to the Emergency Department on the above date and was hospitalized for further evaluation of their emergent condition. - New Patient This patient is new to me today: No - Critical Care Critical Care patient: No
[2016-09-24] MEDS: QUEtiapine FUMARATE 25 MG TABLET (FP) PO SCH (21:35)
[2016-09-25] MEDS: HEPARIN NA (PORCINE) 5,000 UNITS/ML 1ML VIAL SQ SCH (06:07)
[2016-09-25 09:42] VITALS: BP 116/82; PULSE 84; TEMP 99.2
[2016-09-25] MEDS: FOLIC ACID 1 MG TABLET (FP) PO SCH (09:46)
[2016-09-25] MEDS: MULTIVITAMINS (DAILY MVI) TABLET (FP) PO SCH (09:46)
[2016-09-25] MEDS: THIAMINE HCL 100 MG TABLET (FP) PO SCH (09:47)
--- NOTE | 2016-09-25 10:17 | PN ---
Progress Note (short form) - Note Progress Note: Patient seen for psych follow up to determine capacity to make decisions at this time. Patient's cognition appears to have improved significantly since my last evaluation. Patient i9s alert and oriented, able to comprehend. not displaying [id number] acute psychotic symptoms or [id number] symptoms. No evidence os any suicidal thoughts. IMP: Patient has the capacity to make decisions at this time.
--- NOTE | 2016-09-25 11:58 | DS ---
Physical Examination Vital Signs: Vital Signs Temperature 99.2 F 09/25/16 09:41 Pulse Rate 84 09/25/16 09:41 Respiratory Rate 20 09/25/16 09:41 Blood Pressure 116/82 09/25/16 09:41 O2 Sat by Pulse Oximetry (%) 97 09/25/16 09:00 Labs: CBC, BMP 09/20/16 07:45 09/21/16 06:30 Discharge Summary Reason For Visit: ALCOHOL WITHDRAWAL; AMS; RHABDOMYOLYSIS Current Active Problems Acute renal failure (Acute) Alcohol dependence with uncomplicated intoxication (Acute) Alcohol intoxication (Acute) Alcohol withdrawal (Acute) Altered mental status (Acute) Elevated liver enzymes (Acute) Encephalopathy (Acute) Hypernatremia (Acute) Left leg weakness (Acute) Lumbar disc herniation (Acute) Pneumonia (Acute) Respiratory failure (Acute) Rhabdomyolysis (Acute) S/P lumbar laminectomy (Acute) Sepsis (Acute) Weakness (Acute) Hospital Course: 66 yo M with h/o EtOH abuse, PE, subdural hematoma, and DVT admitted for altered mental status due to sepsis due to aspiration pneumonia -pt was found unconscious on floor with vomit at home and brought to the ER -was febrile with retro-cardiac consolidation on CXR and very lethargic -started clindamycin and ceftriaxone to cover gram positives/gram negative/ anerobes for possible aspiration pneumonia -Pt remained extremely lethargic and only nodding his head "yes" when asked questions. Neck is supple, pt remained febrile and tachypnic. Extremities were completely flaccid, pupils constricted, babinski mute B/L. gave dose of vancomycin and zosyn, and transferred to ICU -was intubated and sedated for multiple days and has since been successfully been extubated and doing well at this time -was found to lack capacity last week due to mental status but now is near if not back at his baseline mental status -recommendation was for subacute rehab as pt has weakness from ICU stay but pt respectfully declined; family members made aware I spent greater than 40 minutes preparing this discharge - Instructions Diet, Activity, Other Instructions: completely abstain from alcohol, ambulate cautiosly Disposition: HOME - Home Medications Comprehensive Discharge Medication List: Ambulatory Orders Folic Acid - 1 mg PO DAILY #30 tablet 09/04/16 Thiamine HCl [Vitamin B1 -] 100 mg PO DAILY #30 tablet 09/04/16 Walker [Ultra-Light Rollator] 1 each ONCE #1 each 09/04/16 This patient is new to me today: No Emergency Visit: Yes ED Registration Date: 09/12/16 Care time: The patient presented to the Emergency Department on the above date and was hospitalized for further evaluation of their emergent condition. Critical Care patient: No - Discharge Referral Referred to [facility] Med [facility] No
== END 2016-09-25 12:10 | disposition home or self-care (01) | DRG 871 ==
LOC: JER 10:16 → JERBED 12:43 → UNDOADMIN 12:43 → J4W 15:14 → JERBED 15:14 → J4W 21:29 → JERBED 21:29 → JICU 09-13 17:15 → J8W 09-18 22:31
PROVIDERS: ADMIT Internal Medicine; ATTEND Internal Medicine
PROC: 5A1945Z Respiratory Ventilation, 24-96 Consecutive Hours (ICD-10-PCS; principal; 2016-09-13)
PROC: 0BH17EZ Insertion of Endotracheal Airway into Trachea, Via Natural or Artificial Opening (ICD-10-PCS; 2016-09-13)
PROC: 009U3ZX Drainage of Spinal Canal, Percutaneous Approach, Diagnostic (ICD-10-PCS; 2016-09-13)
DX: A41.9 Sepsis, unspecified organism (principal); J69.0 Pneumonitis due to inhalation of food and vomit; G93.41 Metabolic encephalopathy; J96.00 Acute respiratory failure, unspecified whether with hypoxia or hypercapnia; F10.230 Alcohol dependence with withdrawal, uncomplicated; E87.2 Acidosis; E87.0 Hyperosmolality and hypernatremia; N17.9 Acute kidney failure, unspecified; M62.82 Rhabdomyolysis; E46 Unspecified protein-calorie malnutrition; T42.4X1A Poisoning by benzodiazepines, accidental (unintentional), initial encounter; Z86.718 Personal history of other venous thrombosis and embolism; I10 Essential (primary) hypertension; Z86.711 Personal history of pulmonary embolism; E86.0 Dehydration; E87.6 Hypokalemia; E83.42 Hypomagnesemia; E83.39 Other disorders of phosphorus metabolism; R30.0 Dysuria; Y92.098 Other place in other non-institutional residence as the place of occurrence of the external cause
CPT/HCPCS: 31500; 36415; 36600; 70450-TC; 70544-TC; 71010-TC; 80048; 80053; 81003; 81015; 82140; 82550; 82553; 82803; 82945; 83605; 83735; 84100; 84157; 84295; 84484; 85025; 85027; 85610; 85730; 86592; 86617; 86777; 86850; 86900; 86901; 87040; 87070; 87086; 87102; 87116; 87186; 87205; 87206; 87210; 87252; 87389; 87899; 89050; 93005; 93010; 94002; 94667; 97001-GP; 97116-GP; 99285-25; G0479; G0480; J1644

== ENCOUNTER 2021-07-30 11:05 | Emergency (ER) | payer OTHER ==
[2021-07-30 11:31] VITALS: BMI 22.6
[2021-07-30] MEDS ORDERED: SODIUM CHLORIDE 0.9% 500 ML INFUS.BAG IV ONE (12:55)
[2021-07-30 13:45] LABS: BASO % 0.4 % (0-2.0); EOS % 0.1 % (0-4.5); HEMATOCRIT 33.9 % (35.4-49); HEMOGLOBIN 11.5 GM/dL (11.7-16.9); LYMPH % 11.2 % (8-40); MCH 31.5 pg (25.7-33.7); MCHC 33.9 g/dl (32.0-35.9); MEAN CELL VOLUME 92.9 fl (80-96); MEAN PLT VOLUME 8.1 fl (7.5-11.1); MONO % 6.2 % (3.8-10.2); NEUT % 82.1 % (42.8-82.8); PLATELET COUNT 88 10^3/uL (134-434); RBC 3.65 M/mm3 (4.00-5.60); WHITE BLOOD COUNT 4.4 K/mm3 (4.0-10.0)
[2021-07-30 14:04] LABS: SODIUM 140 mmol/L (136-145)
[2021-07-30 14:07] LABS: CALCIUM 9.5 mg/dL (8.5-10.1)
[2021-07-30 14:08] LABS: ALBUMIN 3.9 g/dl (3.4-5.0); BLOOD UREA NITROGEN 15.1 mg/dL (7-18); CO2 31 mmol/L (21-32); GLUCOSE,RANDOM 92 mg/dL (74-106)
[2021-07-30 14:09] LABS: MAGNESIUM 1.9 mg/dL (1.8-2.4)
[2021-07-30 14:10] LABS: CREATININE 1.4 mg/dL (0.55-1.3); PHOSPHOROUS 2.6 mg/dL (2.5-4.9); SGOT/AST 29 U/L (15-37); SGPT/ALT 19 U/L (13-61)
[2021-07-30 14:12] LABS: TOT PROT 7.5 g/dl (6.4-8.2)
[2021-07-30 14:13] LABS: ALK PHOS 56 U/L (45-117)
[2021-07-30 14:16] LABS: N-TERMINAL BNP 171.3 pg/ml (5-125)
[2021-07-30 14:39] LABS: ANION GAP 6 MMOL/L (8-16); CHLORIDE 103 mmol/L (98-107)
[2021-07-30 19:05] VITALS: BP 170/9; PULSE 96; TEMP 97.7
== END 2021-07-30 19:00 ==
LOC: JER 11:05
DX: R53.1 Weakness (principal); R55 Syncope and collapse
CPT/HCPCS: 36415; 70450-TC; 71045-TC-FY; 80053; 82550; 82553; 82962; 83735; 83880; 84100; 84443; 84484; 85025; 93005; 93010; 99285-25

== ENCOUNTER 2022-03-04 14:50 | Inpatient (IN) | payer OTHER ==
[2022-03-04 15:22] VITALS: TEMP 99; BMI 23.1
[2022-03-04] MEDS ORDERED: SODIUM CHLORIDE 0.9% 500 ML INFUS.BAG IV ONE (16:39)
[2022-03-04 17:14] LABS: BASO % 0.7 % (0-2.0); EOS % 2.2 % (0-4.5); HEMATOCRIT 40.7 % (35.4-49); HEMOGLOBIN 13.1 GM/dL (11.7-16.9); LYMPH % 19.5 % (8-40); MCH 28.9 pg (25.7-33.7); MCHC 32.3 g/dl (32.0-35.9); MEAN CELL VOLUME 89.7 fl (80-96); MEAN PLT VOLUME 9.5 fl (7.5-11.1); MONO % 8.1 % (3.8-10.2); NEUT % 69.5 % (42.8-82.8); PLATELET COUNT 158 10^3/uL (134-434); RBC 4.54 M/mm3 (4.00-5.60); RDW 15.9 % (11.9-15.9); WHITE BLOOD COUNT 3.7 K/mm3 (4.0-10.0)
[2022-03-04 17:23] LABS: INR 0.97 (0.83-1.09); PROTHROMBIN TIME (PATIENT) 11.2 SEC (9.7-13.0)
[2022-03-04 17:25] LABS: ACTIVATED PTT 32.1 SECONDS (25.2-36.5)
[2022-03-04 17:39] LABS: ALBUMIN 4.1 g/dl (3.4-5.0); CALCIUM 9.9 mg/dL (8.5-10.1)
[2022-03-04 17:40] LABS: BLOOD UREA NITROGEN 11.6 mg/dL (7-18)
[2022-03-04 17:43] LABS: CREATININE 1.6 mg/dL (0.55-1.3)
[2022-03-04 17:44] LABS: BILIRUBIN,TOTAL 2.4 mg/dL (0.2-1); TOT PROT 7.6 g/dl (6.4-8.2)
[2022-03-04 18:27] VITALS: BP 125/74; PULSE 54
[2022-03-04] MEDS ORDERED: LACTATED RINGERS SOLUTION 1,000 ML/1,000 ML INFUS.BAG IV SCH (22:45)
[2022-03-05 07:55] LABS: BASO % 0.4 % (0-2.0); EOS % 2.9 % (0-4.5); HEMATOCRIT 32.8 % (35.4-49); HEMOGLOBIN 10.9 GM/dL (11.7-16.9); LYMPH % 24.3 % (8-40); MCH 29.2 pg (25.7-33.7); MCHC 33.2 g/dl (32.0-35.9); MEAN PLT VOLUME 10.3 fl (7.5-11.1); MONO % 10.7 % (3.8-10.2); NEUT % 61.7 % (42.8-82.8); PLATELET COUNT 128 10^3/uL (134-434); RBC 3.73 M/mm3 (4.00-5.60); RDW 16.3 % (11.9-15.9)
[2022-03-05 08:23] LABS: ALBUMIN 3.4 g/dl (3.4-5.0); BLOOD UREA NITROGEN 15.6 mg/dL (7-18); CALCIUM 8.9 mg/dL (8.5-10.1); MAGNESIUM 1.5 mg/dL (1.8-2.4)
[2022-03-05 08:26] LABS: CREATININE 1.4 mg/dL (0.55-1.3); PHOSPHOROUS 1.8 mg/dL (2.5-4.9)
[2022-03-05 08:27] LABS: BILIRUBIN,TOTAL 1.4 mg/dL (0.2-1); TOT PROT 6.3 g/dl (6.4-8.2)
[2022-03-05] MEDS ORDERED: ENOXAPARIN NA (PORCINE) 40 MG/0.4 ML DISP.SYRIN SQ SCH (10:00)
== END 2022-03-05 02:30 | disposition left against medical advice (07) | DRG 641 ==
LOC: JER 14:50 → OBSVTOIN 20:32 → JERBED 20:32
PROVIDERS: ADMIT Hospitalist; ATTEND Hospitalist
DX: E86.0 Dehydration (principal); R42 Dizziness and giddiness; R53.1 Weakness; F10.10 Alcohol abuse, uncomplicated; Z86.718 Personal history of other venous thrombosis and embolism; Z86.711 Personal history of pulmonary embolism; I10 Essential (primary) hypertension; E80.6 Other disorders of bilirubin metabolism; N28.9 Disorder of kidney and ureter, unspecified; Z53.29 Procedure and treatment not carried out because of patient's decision for other reasons
CPT/HCPCS: 0241U-QW; 36415; 71045-TC-FY; 80053; 82248; 83735; 84100; 84484; 85025; 85610; 85730; 93005; 93010; 99285-25

== ENCOUNTER 2022-03-05 03:24 | Observation (INO) | payer OTHER ==
[2022-03-05] MEDS: LACTATED RINGERS SOLUTION 1,000 ML IV SCH (05:20)
[2022-03-05 08:50] LABS: CALCIUM 9.2 mg/dL (8.5-10.1)
[2022-03-05 08:51] LABS: ALBUMIN 3.6 g/dl (3.4-5.0); BLOOD UREA NITROGEN 14.9 mg/dL (7-18)
[2022-03-05 08:54] LABS: BILIRUBIN,DIRECT 0.3 mg/dL (0.0-0.2); CREATININE 1.5 mg/dL (0.55-1.3)
[2022-03-05 08:56] LABS: BILIRUBIN,TOTAL 1.4 mg/dL (0.2-1); TOT PROT 6.4 g/dl (6.4-8.2)
[2022-03-05] MEDS ORDERED: ENOXAPARIN NA (PORCINE) 40 MG/0.4 ML DISP.SYRIN SQ ONE (10:20)
[2022-03-05] MEDS: ENOXAPARIN NA (PORCINE) 40 MG/0.4 ML DISP.SYRIN SQ SCH (10:47)
[2022-03-05 13:44] LABS: PH,URINE 5.5 (5.0-8.0); URINE APPEARANCE CLEAR; URINE BILIRUBIN NEGATIVE (NEGATIVE); URINE COLOR YELLOW; URINE GLUCOSE (UA) NEGATIVE (NEGATIVE); URINE KETONE 1+ (NEGATIVE); URINE LEUK ESTERASE NEGATIVE (NEGATIVE); URINE NITRITE NEGATIVE (NEGATIVE); URINE PROTEIN TRACE (NEGATIVE); URINE UROBILINOGEN 0.2 mg/dL (0.2-1.0)
[2022-03-05 17:49] VITALS: BMI 20.3
[2022-03-06 08:39] LABS: HEMATOCRIT 33.6 % (35.4-49); HEMOGLOBIN 11.1 GM/dL (11.7-16.9); MCH 29.2 pg (25.7-33.7); MEAN CELL VOLUME 88.3 fl (80-96); MEAN PLT VOLUME 9.2 fl (7.5-11.1); PLATELET COUNT 100 10^3/uL (134-434); RDW 16.7 % (11.9-15.9)
[2022-03-06 09:02] LABS: ALBUMIN 3.3 g/dl (3.4-5.0); BLOOD UREA NITROGEN 9.6 mg/dL (7-18); CALCIUM 8.8 mg/dL (8.5-10.1); MAGNESIUM 1.5 mg/dL (1.8-2.4)
[2022-03-06 09:05] LABS: CREATININE 1.2 mg/dL (0.55-1.3); PHOSPHOROUS 2.5 mg/dL (2.5-4.9)
[2022-03-06 09:06] LABS: BILIRUBIN,TOTAL 1.3 mg/dL (0.2-1)
[2022-03-06 09:07] LABS: TOT PROT 6.2 g/dl (6.4-8.2)
[2022-03-06] MEDS: ENOXAPARIN NA (PORCINE) 40 MG/0.4 ML DISP.SYRIN SQ SCH (10:12)
[2022-03-06] MEDS: LACTATED RINGERS SOLUTION 1,000 ML IV SCH (10:17)
[2022-03-06 15:01] VITALS: BP 122/82; PULSE 66; TEMP 98.2
== END 2022-03-06 18:10 | disposition home or self-care (01) ==
LOC: JER 03:24 → JERBED 03:44 → J6S 17:34
PROVIDERS: ADMIT Hospitalist; ATTEND Internal Medicine
PROC: 3E023GC Introduction of Other Therapeutic Substance into Muscle, Percutaneous Approach (ICD-10-PCS; principal; 2022-03-05)
PROC: 3E0337Z Introduction of Electrolytic and Water Balance Substance into Peripheral Vein, Percutaneous Approach (ICD-10-PCS; 2022-03-05)
DX: E86.0 Dehydration (principal); N17.9 Acute kidney failure, unspecified; F10.10 Alcohol abuse, uncomplicated; I10 Essential (primary) hypertension; R63.4 Abnormal weight loss; E78.5 Hyperlipidemia, unspecified; R63.30 Feeding difficulties, unspecified; E80.6 Other disorders of bilirubin metabolism; R42 Dizziness and giddiness; I82.409 Acute embolism and thrombosis of unspecified deep veins of unspecified lower extremity; N28.9 Disorder of kidney and ureter, unspecified; Z29.8 Encounter for other specified prophylactic measures
CPT/HCPCS: 36415; 76705-TC; 80048; 80053; 80076; 81003; 83735; 84100; 84443; 85027; 96360; 96372; 97116-GP; 97162-GP; 99285-25; G0378

== ENCOUNTER 2023-06-18 17:32 | Observation (INO) | payer OTHER ==
[2023-06-18 17:55] VITALS: BMI 23.1
[2023-06-18 21:17] LABS: BASO % 0.5 % (0-2.0); EOS % 0.9 % (0-4.5); HEMATOCRIT 41.7 % (35.4-49); MCH 28.6 pg (25.7-33.7); MCHC 33.5 g/dl (32.0-35.9); MEAN CELL VOLUME 85.4 fl (80-96); MEAN PLT VOLUME 10.7 fl (7.5-11.1); MONO % 8.1 % (3.8-10.2); NEUT % 65.5 % (42.8-82.8); PLATELET COUNT 165 10^3/uL (134-434); RBC 4.88 M/mm3 (4.00-5.60); RDW 15.4 % (11.9-15.9); WHITE BLOOD COUNT 5.2 K/mm3 (4.0-10.0)
[2023-06-18 21:42] LABS: CHLORIDE 107 mmol/L (98-107); POTASSIUM 4.3 mmol/L (3.5-5.1); SODIUM 143 mmol/L (136-145)
[2023-06-18 21:44] LABS: CALCIUM 9.1 mg/dL (8.5-10.1)
[2023-06-18 21:45] LABS: ALBUMIN 3.8 g/dl (3.4-5.0); ANION GAP 7 MMOL/L (8-16); BLOOD UREA NITROGEN 25.6 mg/dL (7-18); CO2 28 mmol/L (21-32); GLUCOSE,RANDOM 108 mg/dL (74-106)
[2023-06-18 21:48] LABS: CREATININE 1.3 mg/dL (0.55-1.3); SGOT/AST 8 U/L (15-37); SGPT/ALT 12 U/L (13-61)
[2023-06-18 21:49] LABS: TOT PROT 7.1 g/dl (6.4-8.2)
[2023-06-18 21:50] LABS: BILIRUBIN,TOTAL 1.3 mg/dL (0.2-1)
[2023-06-18 21:51] LABS: ALK PHOS 62 U/L (45-117)
[2023-06-19 00:02] LABS: COCAINE, UR NEGATIVE (NEGATIVE); OPIATES, URI NEGATIVE (NEGATIVE); PHENCYCLIDINE,URINE NEGATIVE (NEGATIVE); URINE AMPHETAMINES NEGATIVE (NEGATIVE); URINE BARBITURATES NEGATIVE (NEGATIVE)
[2023-06-19 00:29] LABS: METHADONE, UR NEGATIVE (NEGATIVE); URINE BENZODIAZEPINES NEGATIVE (NEGATIVE)
[2023-06-19] MEDS: ENOXAPARIN NA (PORCINE) 40 MG/0.4 ML DISP.SYRIN SQ SCH (10:55)
[2023-06-19] MEDS: FOLIC ACID 1 MG TABLET (FP) PO SCH (10:55)
[2023-06-19] MEDS: THIAMINE HCL 100 MG TABLET (FP) PO SCH (10:55)
[2023-06-20] MEDS: FOLIC ACID 1 MG TABLET (FP) PO SCH (09:04)
[2023-06-20] MEDS: ENOXAPARIN NA (PORCINE) 40 MG/0.4 ML DISP.SYRIN SQ SCH (09:04)
[2023-06-20] MEDS: THIAMINE HCL 100 MG TABLET (FP) PO SCH (09:04)
[2023-06-21 08:20] LABS: URINE APPEARANCE CLEAR; URINE BILIRUBIN NEGATIVE (NEGATIVE); URINE COLOR YELLOW; URINE GLUCOSE (UA) NEGATIVE (NEGATIVE); URINE KETONE NEGATIVE (NEGATIVE); URINE LEUK ESTERASE NEGATIVE (NEGATIVE); URINE NITRITE NEGATIVE (NEGATIVE); URINE PROTEIN NEGATIVE (NEGATIVE); URINE UROBILINOGEN 0.2 mg/dL (0.2-1.0)
[2023-06-21] MEDS: THIAMINE HCL 100 MG TABLET (FP) PO SCH (09:34)
[2023-06-21] MEDS: FOLIC ACID 1 MG TABLET (FP) PO SCH (09:34)
[2023-06-21] MEDS: MULTIVITAMINS (DAILY MVI) TABLET (FP) PO SCH (09:34)
[2023-06-21] MEDS: ENOXAPARIN NA (PORCINE) 40 MG/0.4 ML DISP.SYRIN SQ SCH (09:34)
[2023-06-21] MEDS ORDERED: ACETAMINOPHEN 325 MG TABLET (FP) PO PRN (13:56)
[2023-06-22 08:50] LABS: BASO % 0.6 % (0-2.0); HEMATOCRIT 41.6 % (35.4-49); HEMOGLOBIN 13.1 GM/dL (11.7-16.9); LYMPH % 40.1 % (8-40); MCH 27.7 pg (25.7-33.7); MCHC 31.5 g/dl (32.0-35.9); MEAN CELL VOLUME 87.9 fl (80-96); MEAN PLT VOLUME 9.8 fl (7.5-11.1); MONO % 10.7 % (3.8-10.2); NEUT % 46.6 % (42.8-82.8); PLATELET COUNT 146 10^3/uL (134-434); RBC 4.74 M/mm3 (4.00-5.60)
[2023-06-22 09:08] LABS: POTASSIUM 4.6 mmol/L (3.5-5.1)
[2023-06-22 09:10] LABS: BLOOD UREA NITROGEN 25.1 mg/dL (7-18); CALCIUM 8.7 mg/dL (8.5-10.1)
[2023-06-22 09:11] LABS: ALBUMIN 3.4 g/dl (3.4-5.0); MAGNESIUM 1.9 mg/dL (1.8-2.4)
[2023-06-22 09:13] LABS: CREATININE 1.2 mg/dL (0.55-1.3)
[2023-06-22 09:16] LABS: BILIRUBIN,TOTAL 0.8 mg/dL (0.2-1); TOT PROT 6.3 g/dl (6.4-8.2)
[2023-06-22] MEDS: ENOXAPARIN NA (PORCINE) 40 MG/0.4 ML DISP.SYRIN SQ SCH (10:12)
[2023-06-22] MEDS: THIAMINE HCL 100 MG TABLET (FP) PO SCH (10:13)
[2023-06-22] MEDS: ASPIRIN COATED 81 MG TABLET.EC PO SCH (10:13)
[2023-06-22] MEDS: MULTIVITAMINS (DAILY MVI) TABLET (FP) PO SCH (10:13)
[2023-06-22] MEDS: FOLIC ACID 1 MG TABLET (FP) PO SCH (10:13)
[2023-06-22] MEDS: ATORVASTATIN CA 20 MG TABLET (FP) PO SCH (21:42)
[2023-06-23 08:42] LABS: BASO % 0.8 % (0-2.0); EOS % 1.9 % (0-4.5); HEMATOCRIT 39.8 % (35.4-49); HEMOGLOBIN 13.3 GM/dL (11.7-16.9); LYMPH % 38.8 % (8-40); MCH 28.7 pg (25.7-33.7); MCHC 33.5 g/dl (32.0-35.9); MEAN CELL VOLUME 85.8 fl (80-96); MEAN PLT VOLUME 8.8 fl (7.5-11.1); MONO % 9.8 % (3.8-10.2); NEUT % 48.7 % (42.8-82.8); PLATELET COUNT 121 10^3/uL (134-434); RBC 4.64 M/mm3 (4.00-5.60); RDW 15.4 % (11.9-15.9); WHITE BLOOD COUNT 3.9 K/mm3 (4.0-10.0)
[2023-06-23] MEDS: ASPIRIN COATED 81 MG TABLET.EC PO SCH (09:37)
[2023-06-23] MEDS: THIAMINE HCL 100 MG TABLET (FP) PO SCH (09:37)
[2023-06-23] MEDS: MULTIVITAMINS (DAILY MVI) TABLET (FP) PO SCH (09:37)
[2023-06-23] MEDS: FOLIC ACID 1 MG TABLET (FP) PO SCH (09:37)
[2023-06-23] MEDS: ENOXAPARIN NA (PORCINE) 40 MG/0.4 ML DISP.SYRIN SQ SCH (09:37)
[2023-06-23 09:49] LABS: POTASSIUM 4.6 mmol/L (3.5-5.1)
[2023-06-23 09:50] LABS: ALBUMIN 3.6 g/dl (3.4-5.0); BLOOD UREA NITROGEN 25.4 mg/dL (7-18); CALCIUM 8.9 mg/dL (8.5-10.1); MAGNESIUM 1.9 mg/dL (1.8-2.4)
[2023-06-23 09:53] LABS: CREATININE 1.1 mg/dL (0.55-1.3)
[2023-06-23 09:55] LABS: BILIRUBIN,TOTAL 0.7 mg/dL (0.2-1); TOT PROT 6.6 g/dl (6.4-8.2)
[2023-06-23] MEDS: ATORVASTATIN CA 20 MG TABLET (FP) PO SCH (21:47)
[2023-06-24 09:55] LABS: BASO % 0.8 % (0-2.0); EOS % 2.1 % (0-4.5); HEMATOCRIT 38.2 % (35.4-49); HEMOGLOBIN 12.3 GM/dL (11.7-16.9); LYMPH % 30.7 % (8-40); MCH 28.1 pg (25.7-33.7); MCHC 32.3 g/dl (32.0-35.9); MEAN PLT VOLUME 9.8 fl (7.5-11.1); MONO % 10.1 % (3.8-10.2); NEUT % 56.3 % (42.8-82.8); PLATELET COUNT 132 10^3/uL (134-434); RBC 4.39 M/mm3 (4.00-5.60); RDW 15.4 % (11.9-15.9); WHITE BLOOD COUNT 4.2 K/mm3 (4.0-10.0)
[2023-06-24 10:15] LABS: POTASSIUM 4.2 mmol/L (3.5-5.1)
[2023-06-24 10:22] LABS: ALBUMIN 3.3 g/dl (3.4-5.0); BLOOD UREA NITROGEN 24.8 mg/dL (7-18); CALCIUM 8.7 mg/dL (8.5-10.1); MAGNESIUM 1.8 mg/dL (1.8-2.4)
[2023-06-24 10:24] LABS: CREATININE 1.1 mg/dL (0.55-1.3)
[2023-06-24 10:26] LABS: TOT PROT 6.3 g/dl (6.4-8.2)
[2023-06-24] MEDS: FOLIC ACID 1 MG TABLET (FP) PO SCH (10:26)
[2023-06-24] MEDS: ENOXAPARIN NA (PORCINE) 40 MG/0.4 ML DISP.SYRIN SQ SCH (10:26)
[2023-06-24] MEDS: THIAMINE HCL 100 MG TABLET (FP) PO SCH (10:26)
[2023-06-24] MEDS: ASPIRIN COATED 81 MG TABLET.EC PO SCH (10:26)
[2023-06-24] MEDS: MULTIVITAMINS (DAILY MVI) TABLET (FP) PO SCH (10:26)
[2023-06-24 10:31] LABS: BILIRUBIN,TOTAL 0.9 mg/dL (0.2-1)
[2023-06-24] MEDS: ATORVASTATIN CA 20 MG TABLET (FP) PO SCH (21:48)
[2023-06-25] MEDS: THIAMINE HCL 100 MG TABLET (FP) PO SCH (10:50)
[2023-06-25] MEDS: MULTIVITAMINS (DAILY MVI) TABLET (FP) PO SCH (10:50)
[2023-06-25] MEDS: ENOXAPARIN NA (PORCINE) 40 MG/0.4 ML DISP.SYRIN SQ SCH (10:50)
[2023-06-25] MEDS: FOLIC ACID 1 MG TABLET (FP) PO SCH (10:51)
[2023-06-25] MEDS: ASPIRIN COATED 81 MG TABLET.EC PO SCH (10:51)
[2023-06-25] MEDS: ATORVASTATIN CA 20 MG TABLET (FP) PO SCH (22:15)
[2023-06-26] MEDS: MULTIVITAMINS (DAILY MVI) TABLET (FP) PO SCH (09:47)
[2023-06-26] MEDS: FOLIC ACID 1 MG TABLET (FP) PO SCH (09:47)
[2023-06-26] MEDS: ASPIRIN COATED 81 MG TABLET.EC PO SCH (09:47)
[2023-06-26] MEDS: THIAMINE HCL 100 MG TABLET (FP) PO SCH (09:48)
[2023-06-26] MEDS: ATORVASTATIN CA 20 MG TABLET (FP) PO SCH (21:30)
[2023-06-27] MEDS: THIAMINE HCL 100 MG TABLET (FP) PO SCH (10:15)
[2023-06-27] MEDS: ASPIRIN COATED 81 MG TABLET.EC PO SCH (10:15)
[2023-06-27] MEDS: FOLIC ACID 1 MG TABLET (FP) PO SCH (10:15)
[2023-06-27] MEDS: MULTIVITAMINS (DAILY MVI) TABLET (FP) PO SCH (10:15)
[2023-06-27] MEDS: ATORVASTATIN CA 20 MG TABLET (FP) PO SCH (21:15)
[2023-06-28] MEDS: FOLIC ACID 1 MG TABLET (FP) PO SCH (09:20)
[2023-06-28] MEDS: MULTIVITAMINS (DAILY MVI) TABLET (FP) PO SCH (09:20)
[2023-06-28] MEDS: THIAMINE HCL 100 MG TABLET (FP) PO SCH (09:20)
[2023-06-28] MEDS: ASPIRIN COATED 81 MG TABLET.EC PO SCH (09:20)
[2023-06-28] MEDS: ATORVASTATIN CA 20 MG TABLET (FP) PO SCH (22:24)
[2023-06-29] MEDS: MULTIVITAMINS (DAILY MVI) TABLET (FP) PO SCH (10:02)
[2023-06-29] MEDS: ASPIRIN COATED 81 MG TABLET.EC PO SCH (10:02)
[2023-06-29] MEDS: THIAMINE HCL 100 MG TABLET (FP) PO SCH (10:02)
[2023-06-29] MEDS: FOLIC ACID 1 MG TABLET (FP) PO SCH (10:02)
[2023-06-29] MEDS: ATORVASTATIN CA 20 MG TABLET (FP) PO SCH (21:40)
[2023-06-30] MEDS: MULTIVITAMINS (DAILY MVI) TABLET (FP) PO SCH (09:40)
[2023-06-30] MEDS: THIAMINE HCL 100 MG TABLET (FP) PO SCH (09:40)
[2023-06-30] MEDS: FOLIC ACID 1 MG TABLET (FP) PO SCH (09:40)
[2023-06-30] MEDS: ASPIRIN COATED 81 MG TABLET.EC PO SCH (09:40)
[2023-06-30] MEDS: ATORVASTATIN CA 20 MG TABLET (FP) PO SCH (22:45)
[2023-07-01] MEDS: MULTIVITAMINS (DAILY MVI) TABLET (FP) PO SCH (09:58)
[2023-07-01] MEDS: THIAMINE HCL 100 MG TABLET (FP) PO SCH (09:58)
[2023-07-01] MEDS: ASPIRIN COATED 81 MG TABLET.EC PO SCH (09:59)
[2023-07-01] MEDS: FOLIC ACID 1 MG TABLET (FP) PO SCH (09:59)
[2023-07-01] MEDS: ATORVASTATIN CA 20 MG TABLET (FP) PO SCH (21:57)
[2023-07-02] MEDS: ASPIRIN COATED 81 MG TABLET.EC PO SCH (09:24)
[2023-07-02] MEDS: MULTIVITAMINS (DAILY MVI) TABLET (FP) PO SCH (09:24)
[2023-07-02] MEDS: FOLIC ACID 1 MG TABLET (FP) PO SCH (09:24)
[2023-07-02] MEDS: THIAMINE HCL 100 MG TABLET (FP) PO SCH (09:24)
[2023-07-02 18:06] VITALS: RESP 18
[2023-07-02] MEDS: ATORVASTATIN CA 20 MG TABLET (FP) PO SCH (21:18)
[2023-07-03] MEDS: ASPIRIN COATED 81 MG TABLET.EC PO SCH (09:04)
[2023-07-03] MEDS: MULTIVITAMINS (DAILY MVI) TABLET (FP) PO SCH (09:04)
[2023-07-03] MEDS: THIAMINE HCL 100 MG TABLET (FP) PO SCH (09:04)
[2023-07-03] MEDS: FOLIC ACID 1 MG TABLET (FP) PO SCH (09:05)
[2023-07-03] MEDS ORDERED: ENOXAPARIN NA (PORCINE) 40 MG/0.4 ML DISP.SYRIN SQ SCH (10:00)
[2023-07-03 10:50] VITALS: BP 111/72; PULSE 81; TEMP 98.2
== END 2023-07-03 13:12 ==
LOC: JER 17:32 → JERBED 22:25 → J7W 06-19 23:00
PROVIDERS: ADMIT Internal Medicine; ATTEND Nurse Practitioner Family
PROC: 3E023GC Introduction of Other Therapeutic Substance into Muscle, Percutaneous Approach (ICD-10-PCS; principal; 2023-06-18)
DX: F10.230 Alcohol dependence with withdrawal, uncomplicated (principal); F03.90 Unspecified dementia, unspecified severity, without behavioral disturbance, psychotic disturbance, mood disturbance, and anxiety; T76.91XA Unspecified adult maltreatment, suspected, initial encounter; T76.A1XA Adult financial abuse, suspected, initial encounter; X58.XXXA Exposure to other specified factors, initial encounter; E46 Unspecified protein-calorie malnutrition; E78.5 Hyperlipidemia, unspecified; I67.82 Cerebral ischemia; Y93.89 Activity, other specified; Y92.89 Other specified places as the place of occurrence of the external cause; I10 Essential (primary) hypertension; Z87.820 Personal history of traumatic brain injury; Z96.641 Presence of right artificial hip joint; Z86.711 Personal history of pulmonary embolism; I62.00 Nontraumatic subdural hemorrhage, unspecified; Z29.8 Encounter for other specified prophylactic measures
CPT/HCPCS: 36415; 70450-TC; 80053; 80061; 80307; 81003; 82962; 83036; 83735; 84443; 85025; 87081; 87086; 87635; 93005; 93010; 96372; 97116-GP; 97161-GP; 99285-25; G0378